=== PATIENT | male | born 1940 | race Caucasian/White ===

== ENCOUNTER 2017-08-07 08:41 | Inpatient (IN) | payer OTHER ==
[2017-07-07 13:05] VITALS: Ht 160 cm; Wt 86.0 kg
--- NOTE | 2017-07-07 13:38 | PAT Medication Instructions ---
Service Date Jul 07, 2017. Current Home Medication List Atorvastatin (Lipitor), 40 MG PO QPM Levothyroxine Sodium (Levothyroxine Sodium), 1 TAB PO QAM Metformin Hcl (Glucophage), 500 MG PO BID Medication Instructions For Your Scheduled Surgery - Hold the following medications the morning of surgery: Metformin Hcl (Glucophage), 500 MG PO BID - Take the following medications the morning of surgery with a sip of water: Levothyroxine Sodium (Levothyroxine Sodium), 1 TAB PO QAM - Take the following medications as scheduled the night before surgery: Metformin Hcl (Glucophage), 500 MG PO BID Atorvastatin (Lipitor), 40 MG PO QPM If you have any questions please call us at [phone] or [phone] or [phone]
--- NOTE | 2017-07-07 14:20 | DIAGNOSTIC IMAGING REPORT ---
CHEST 2 VIEWS ROUTINE CLINICAL HISTORY: PAT preoperative evaluation COMPARISON STUDY: No previous studies for comparison. FINDINGS: The bones soft tissues and hemidiaphragms are normal. The cardiomediastinal silhouette is normal. The lungs are clear. The pulmonary vasculature is normal. There is suggestion of sclerosis and mild deformity of the posterior medial aspect of the right fourth rib. This most likely secondary to old trauma and/or congenital deformity. IMPRESSION: No acute process. The above report was generated using voice recognition software. It may contain grammatical, syntax or spelling errors. Electronically signed by: Niraj Hart M.D. 07/07/2017 2:18 PM Dictated Date/Time: 07/07/2017 2:17 PM
[2017-07-07 15:53] LABS: BASO % 0.3 %; BASO ABS # 0.03 K/uL (0-0.2); EOS % 1.8 %; EOS ABS # 0.19 K/uL (0-0.5); HEMOGLOBIN 14.2 g/dL (14.0-18.0); IG# 0.05 K/uL (0.00-0.02); LYMPH % 17.6 %; LYMPH ABS # 1.88 K/uL (1.2-3.4); MEAN CELL VOLUME 92.5 fL (80-100); MEAN CORPUSCULAR HEMOGLOBIN 30.5 pg (25-34); MEAN PLATELET VOLUME 10.4 fL (7.4-10.4); MONO % 7.7 %; MONO ABS # 0.82 K/uL (0.11-0.59); NEUT % 72.1 %; PLATELET COUNT 371 K/uL (130-400); RED CELL DISTRIBUTION WIDTH CV 13.2 % (11.5-14.5); RED CELL DISTRIBUTION WIDTH SD 44.2 fL (36.4-46.3); WHITE BLOOD COUNT 10.67 K/uL (4.8-10.8)
[2017-07-07 16:02] LABS: INR 0.9 (0.9-1.1); PTT PATIENT 27.5 SECONDS (21.0-31.0)
[2017-07-07 16:18] LABS: CALCIUM 9.2 mg/dl (8.5-10.1); CREATININE 0.78 mg/dl (0.60-1.40); POTASSIUM 4.2 mmol/L (3.5-5.1)
--- NOTE | 2017-08-06 08:25 | HISTORY & PHYSICAL EXAMINATION ---
DATE OF ADMISSION: 08/07/2017 CHIEF COMPLAINT: Rotator cuff arthropathy of the right shoulder. HISTORY OF PRESENT ILLNESS: Mohsen is a pleasant 77-year-old male who has been having chronic increasing right shoulder pain and weakness. He does have a history of a rotator cuff repair in 2007. Over the past year, he has been noticing a decrease in range of motion and loss of strength in the shoulder. X-rays and clinical examination have been diagnostic for rotator cuff arthropathy of the right shoulder. After failing conservative treatment, he has elected to proceed with a reverse right shoulder arthroplasty. PAST MEDICAL HISTORY: Significant for hypothyroidism, hyperlipidemia, and borderline diabetes. PAST SURGICAL HISTORY: Significant for right shoulder rotator cuff repair in 2007 and appendectomy and ORIF of the right foot about 15 years ago. ALLERGIES: NAFCILLIN. MEDICATIONS: Include Synthroid, metformin, and Lipitor. FAMILY HISTORY: The patient denies. SOCIAL HISTORY: The patient is , lives in a house with his , and his is able to take care of him. He is planning to go home after discharge and will use [facility]. REVIEW OF SYSTEMS: He complains mostly of right shoulder pain and weakness. All other pertinent review of systems are negative. PHYSICAL EXAMINATION: GENERAL: He is awake, alert, and orient x3. He is in no apparent distress. He is very pleasant. HEENT: Pupils are equal, round, and reactive to light. Extraocular motions intact. Oral mucosa is pink and moist. HEART: The heart has regular rate per radial pulse. LUNGS: The lungs fawad symmetrically bilaterally with no audible breath sounds. ABDOMEN: The abdomen is soft, nontender, nondistended. MUSCULOSKELETAL: On physical examination of the right shoulder, he has decreased active range of motion with about 140 degrees of forward elevation. He has 4/5 motion with full can test and external rotation. Equivocal belly press test. He has a positive lag sign and a positive hornblower sign. He does have pain with range of motion. IMAGING DATA: X-rays of the right shoulder do show advancing osteoarthritis. There is some superior migration of the humeral head within the glenoid. IMPRESSION: Rotator cuff arthropathy of the right shoulder. PLAN: We will proceed with a reverse right shoulder arthroplasty. Postoperatively, he will be kept overnight in the hospital for postoperative medical management. He will then likely be discharged to home with [facility].
[2017-08-07] VITALS (8 sets, daily range): BP systolic 100–155; BP diastolic 49–72; PULSE 58–71; TEMP 36.4–36.7; O2SAT 90–96
[~2017-08-07] VITALS: Ht 160 cm; Wt 86.0 kg
[~2017-08-07 08:41] MED LIST: ACETAMINOPHEN 500 MG TAB PO SCH; ATOR-24 PO; CEFAZOLIN 2000MG IV PUSH 15 ML IV SCH; CLONIDINE HCL 100 MCG/ML SYRINGE ONE; FAMOTIDINE 20 MG TAB PO SCH; GABAPENTIN 300 MG CAP PO SCH; GLC/500 PO; LACTATED RINGER'S 1000ML 1,000 ML IV SCH; LACTATED RINGER'S 1000ML IV SCH; LEVO75TA5 PO; ROPIVACAINE 0.5% 5 MG/ML 30 ML VIAL ONE; ROPIVACAINE 5MG/ML 30 ML 150 MG, BUPIVACAINE 0.5% MPF INJ 30 ML, EpINEphrine HCL INJ 0.... INFIL SCH
[2017-08-07] MEDS ORDERED: FENTANYL CITRATE INJ 50 MCG/1 ML 2 ML VIAL ONE (08:58)
--- NOTE | 2017-08-07 08:58 | History & Physical Bridge Note ---
H&P Re-Evaluation Bridge Note: I have examined the patient, reviewed the History & Physical and in the interval since the performance of the History & Physical I have noted the following changes of clinical significance: No changes noted
[2017-08-07] MEDS ORDERED: ORTHO JOINT ANESTHETIC ONE (09:22)
[2017-08-07] MEDS ORDERED: BACITRACIN 50000 UNIT VIAL ONE (09:22)
[2017-08-07] MEDS ORDERED: MEPERIDINE HCL 25 MG/ML CARP IV PRN (09:30)
[2017-08-07] MEDS ORDERED: NALOXONE HCL 0.4 MG/1 ML VIAL/CARP IV PRN ×2 (09:30→12:15)
[2017-08-07] MEDS ORDERED: EpHEDrine SULFATE INJ 50 MG/ML AMP IV PRN (09:30)
[2017-08-07] MEDS ORDERED: LABETALOL HCL IV 5 MG/ML 20ML IV PRN (09:30)
[2017-08-07] MEDS ORDERED: ONDANSETRON INJ 2 MG/ML 2 ML VIAL IV PRN ×2 (09:30→12:15)
[2017-08-07] MEDS ORDERED: PHENYLEPHRINE 100MCG/ML 5ML SYR IV PRN (09:30)
[2017-08-07] MEDS ORDERED: ATROPINE SULFATE 0.1 MG/ML 5ML SYR IV PRN (09:30)
[2017-08-07] MEDS ORDERED: FLUMAZENIL 0.1 MG/1 ML 10 ML VIAL IV PRN (09:30)
[2017-08-07] MEDS ORDERED: HYDROmorphone INJ 2 MG/ML SYR/VIAL IV PRN (09:30)
[2017-08-07] MEDS ORDERED: FENTANYL CITRATE INJ 50 MCG/1 ML 2 ML VIAL IV PRN (09:30)
[2017-08-07] MEDS: TRANEXAMIC ACID INJ 1,000 MG x 2 Bags IV SCH ×4 (10:14→14:17)
[2017-08-07] MEDS ORDERED: ROCURONIUM BROMIDE 10 MG/ML 5 ML VIAL ONE (11:06)
[2017-08-07] MEDS ORDERED: ONDANSETRON INJ 2 MG/ML 2 ML VIAL ONE (11:06)
[2017-08-07] MEDS ORDERED: PROPOFOL IV EMULSION 10 MG/ML 20 ML VIAL ONE (11:06)
[2017-08-07] MEDS ORDERED: EpHEDrine SULFATE 50MG/5ML SYR ONE (11:06)
[2017-08-07] MEDS ORDERED: DEXAMETHASONE SOD INJ 4 MG/ML VIAL ONE (11:06)
--- NOTE | 2017-08-07 12:04 | [facility] Post Operative Brief Note ---
Immediate Operative Summary Operative Date August 07, 2017. Pre-Operative Diagnosis Rotator Cuff Arthropathy of Right Shoulder Post-Operative Diagnosis Rotator Cuff Arthropathy of Right Shoulder Procedure(s) Performed Right Reverse Total Shoulder Arthroplasty Surgeon Dr Lynch [employer] Director Surgeon(s) Jarrod Dugan PA-C Estimated Blood Loss 250ml Findings Consistent with Post-Op Diagnosis Specimens A: Right Humeral Head Anesthesia Type General Regional Complication(s) none Disposition Disposition: Recovery Room / PACU
[2017-08-07] MEDS ORDERED: OXYCODONE HCL IR 5 MG TAB (IMMEDIATE RELEASE) PO PRN (12:15)
[2017-08-07] MEDS ORDERED: MAGNESIUM HYDROXIDE SUSP 30 ML UDC PO PRN (12:15)
[2017-08-07] MEDS ORDERED: METOCLOPRAMIDE HCL INJ 5 MG/ML 2 ML VIAL IV PRN (12:15)
[2017-08-07] MEDS ORDERED: MoRPHine SULFATE 4 MG/ML 1 ML CARP\\VIAL IV PRN (12:15)
[2017-08-07] MEDS ORDERED: BISACODYL 10 MG SUPP PR PRN (12:15)
[2017-08-07] MEDS ORDERED: SOD PHOSPHATE/SOD BIPHOSPHATE ENEMA 132 ML BTL PR PRN (12:15)
--- NOTE | 2017-08-07 12:55 | DIAGNOSTIC IMAGING REPORT ---
R SHOULDER MIN 2 VIEWS ROUTINE HISTORY: 77 years-old Male Post shoulder surgery status post right shoulder arthroplasty placement. Degenerative joint disease. COMPARISON: Right shoulder radiographs 10/28/2016 TECHNIQUE: 2 views of the right shoulder FINDINGS: Postoperative changes from recent placement of a reverse right shoulder total joint arthroplasty device which appears to be in satisfactory alignment. No retained foreign body or periprosthetic fracture. Moderate to severe osteoarthritis about the right AC joint. Skin tonja are noted along with expected postsurgical soft tissue swelling and deep tissue air about the right shoulder. Right lung appears hypoinflated. Remote appearing fracture of the posterior right fourth rib. IMPRESSION: Satisfactory positioning of reverse right shoulder total joint arthroplasty. The above report was generated using voice recognition software. It may contain grammatical, syntax or spelling errors. Electronically signed by: Rohith Wren M.D. 08/07/2017 12:54 PM Dictated Date/Time: 08/07/2017 12:52 PM
--- NOTE | 2017-08-07 13:09 | Anesthesiology Progress Note ---
Anesthesia Post Op Note Date & Time August 07, 2017 at 13:09 Vital Signs Pain Intensity: 0 Vital Signs Past 12 Hours Date Time Temp Pulse Resp B/P (MAP) Pulse Ox O2 Delivery O2 Flow Rate FiO2 08/07/17 13:00 64 16 148/61 95 Oxymask 2 08/07/17 12:50 36.2 64 16 146/63 94 Oxymask 2 08/07/17 12:40 64 16 155/71 97 Oxymask 10 08/07/17 12:30 64 16 156/73 97 Oxymask 10 08/07/17 12:23 36 78 16 168/72 97 Oxymask 10 08/07/17 09:17 36.7 71 18 148/62 96 Room Air Notes Mental Status: alert / awake / arousable, participated in evaluation Pt Amnestic to Procedure: Yes Nausea / Vomiting: adequately controlled Pain: adequately controlled Airway Patency, RR, SpO2: stable & adequate BP & HR: stable & adequate Hydration State: stable & adequate Anesthetic Complications: no major complications apparent
[2017-08-07] MEDS ORDERED: GLYCOPYRROLATE INJ 0.2 MG/ML VIAL ONE (13:15)
[2017-08-07] MEDS ORDERED: NEOSTIGMINE METHYLSULFATE 5 MG/5 ML SYR ONE (13:15)
[2017-08-07] MEDS: KETOROLAC TROMETHAMINE 15 MG/ML VIAL IV. SCH ×2 (14:47→20:37)
[2017-08-07] MEDS: POTASSIUM CHLORIDE INJ 10 MEQ in SODIUM CHLORIDE 0.9% 1000ML 1,000 ML IV SCH (14:51)
[2017-08-07] MEDS ORDERED: ACETAMINOPHEN IV 1,000 MG in EMPTY BAG 0 ML IV SCH (15:00)
--- NOTE | 2017-08-07 15:19 | OPERATIVE REPORT ---
DATE OF OPERATION: 08/07/2017 PREOPERATIVE DIAGNOSIS: Rotator cuff arthropathy of the right shoulder. POSTOPERATIVE DIAGNOSIS: Rotator cuff arthropathy of the right shoulder. PROCEDURE: Right reverse total shoulder arthroplasty. SURGEON: Dr. Edgar Lynch TAPE STRINGER: Raghu Dugan PA-C, whose assistance was necessary for retraction and closure. ANESTHESIA: General with a right interscalene nerve block. COMPLICATIONS: None. CONDITION: Stable to PACU. INDICATIONS: Mohsen is a pleasant 77-year-old male who underwent an open right rotator cuff repair about 10 years ago. Unfortunately, he has been having increased pain and weakness of his right shoulder. X-rays and clinical examination were diagnostic for rotator cuff arthropathy of the right shoulder. After failing conservative treatment, he elected to undergo a reverse right shoulder arthroplasty. OPERATION AND FINDINGS: On 08/07/2017, he arrived at [facility] for the above procedure. He was seen in the preoperative holding and the operative extremity was identified and signed. He was given a preoperative antibiotic and a right interscalene nerve block. He was taken back to the operating room, laid on the table in supine position, and put under general anesthesia. He was then put into the beachchair position. The right shoulder was prepped and draped in sterile fashion. Time-out was done. The patient's operative extremity was properly identified. A deltopectoral approach was used. Dissection was taken down through the interval and the anterior shoulder was exposed. The long head of the biceps tendon was tenodesed to the upper border of the pectoralis major. The subscapularis was tenotomized off the lesser tuberosity with a centimeter of cuff tissue remaining. The proximal humerus was then exposed. A canal finding reamer was sent down the center of the humeral canal. Sequential reaming up to a size 15 reamer was done. Off that reamer, a proximal humeral resection guide was placed and the proximal humerus was resected about 25 degrees of retroversion and 135 degrees of inclination. The glenoid was then exposed. Time was spent doing a complete circumferential capsular and labral release. A guide was placed on the inferior aspect of the glenoid and a guide pin was placed in 10 degrees of inclination. A 25-mm mini baseplate was then reamed and the final baseplate was then impacted into place. A 25-mm central screw was placed followed by superior and inferior locking screws. A 36-mm eccentric glenosphere was then impacted into place. The proximal humerus was once again exposed. Sequential broaching up to a size 15 broach was done. A standard humeral tray was trialed, the shoulder was reduced, brought through a full range of motion, and felt to be stable. The shoulder was then dislocated. The broach was removed. The final size 15 mini Press-Fit implant was impacted into place. A standard humeral bearing was placed and a standard humeral tray and the ring lock mechanism was engaged. The humeral tray was then placed on the humeral stem. The shoulder was reduced, brought through a full range of motion, and felt to be stable. The surrounding soft tissues were injected with 100 mL of an orthopedic pain control cocktail. The wound was then irrigated with 3 L normal saline solution with bacitracin. The subscapularis was tenodesed back to the lesser tuberosity with transosseous FiberWire sutures and [id number] sutures. The axillary nerve was palpated. Skin was closed with 2-0 Vicryl, 3-0 V-Loc suture, and tonja. He was then placed in a soft dressing and a regular arm sling. He was then extubated, transferred to a [facility], and taken to the care in stable condition having tolerated the procedure well. IMPLANTS USED: I used a Biomet comprehensive reverse right shoulder arthroplasty with a 25-mm mini base plate, a single 25 mm central screw, two 35 mm peripheral locking screws, a 36-mm standard eccentric glenosphere, a 15-mm Press-Fit mini humeral stem and a standard humeral tray and bearing. I attest to the content of the Intraoperative Record and any orders documented therein. Any exception s are noted below.
[2017-08-07] MEDS ORDERED: RXC5 PO (16:46)
--- NOTE | 2017-08-07 16:47 | Discharge Instructions ---
Discharge Instructions Date of Service August 07, 2017. Admission Reason for Admission: Right Shoulder Chronic Rotator Cuff Tear/Pain Discharge Discharge Diagnosis / Problem: Right Reverse Total Shoulder Discharge Goals Goal(s): Decrease discomfort, Improve function Activity Recommendations Activity Limitations: as noted below . Instructions / Follow-Up Instructions / Follow-Up Activity and Therapy Recommendations: * Wear your sling for 3 weeks, unless otherwise instructed. You may remove your sling to shower and to dress, but otherwise, you should be in your sling at all times, including while sleeping * The shoulder replacement is very stable and you can use your hand while in the sling * Physical Therapy should start about 3-5 days from your day of surgery. Therapy will last about 8-12 weeks * You were shown a series of exercises in the hospital. Do these exercises daily including the exercises you were shown in physical therapy. Medications: * Narcotic You will likely be sent home from the hospital with a prescription for the narcotic pain medication that worked best throughout your stay. * Other medications may be prescribed for specific circumstances. If you have any questions, please call the office at . * Resume previous home medications unless otherwise instructed Dressing Care: If the incision is not draining then you may leave the tonja open to air. If there is a little bit of drainage or if the tonja are getting stuck on your clothing then cover the incision with a dry dressing. The tonja will be removed at your 2 week follow-up appointment. Showering: You may shower 5 days from the day of surgery. Let the soapy shower water run over the tonja and pat them dry. Do not scrub or soak the incision. Things To Watch For: * Drainage from the incision site that occurs more than one week after your surgery. * Increased redness at the incision site. * Fever above 102 degrees Fahrenheit. * Unusual chest pain or shortness of breath. * Call [facility] at with any of the above problems Follow-Up Visit: Follow-up with Dr. Lynch 2 weeks after your day of surgery. An appointment was probably scheduled when you signed-up for surgery in the office. If you have any questions call Office Instructions: More detailed instructions as well as Frequently Asked Questions were provided in a folder by our office when you signed-up for surgery. Please review these instructions when you get home. If you have any further questions or concerns, please feel free to call the office at [phone] Current Hospital Diet Patient's current hospital diet: Diabetes Type 2 Diet Discharge Diet Recommended Diet: Diabetes Type 2 Diet Procedures Procedures Performed: Right Reverse Total Shoulder Arthroplasty Pending Studies Studies pending at discharge: no Medical Emergencies . Who to Call and When: Medical Emergencies: If at any time you feel your situation is an emergency, please call 911 immediately. . Non-Emergent Contact Non-Emergency issues call your: Surgeon Call Non-Emergent contact if: wound has increased drainage, wound has increased redness . "Provider Documentation" section prepared by Edgar Lynch. .
--- NOTE | 2017-08-07 17:14 | PROGRESS NOTE ---
DATE: 08/07/2017 CHIEF COMPLAINT: Status post right reverse shoulder arthroplasty, postop day 0. SUBJECTIVE: Mohsen was seen and examined at bedside today. Overall, he is doing very well. He is sitting up with his arm in a sling. He has no pain and no complaints. OBJECTIVE: He is wearing a sling as instructed. The dressing is clean and dry. His radial, median, and ulnar nerves are checked and intact at his wrist. His axillary nerve is not checked yet. IMAGING: X-rays postoperatively of the right shoulder showed prosthesis to be in anatomical alignment without any evidence of fracture, dislocation, or loosening. IMPRESSION: Status post right reverse shoulder arthroplasty, postop day 0. PLAN: At this point, he is doing well. We will use oxycodone for pain control upon discharge. I plan to discharge him to home tomorrow morning with her arranged physical therapy.
[2017-08-07] MEDS: METFORMIN HCL 500 MG TAB PO SCH (17:45)
[2017-08-07] MEDS: ACETAMINOPHEN IV 1,000 MG in EMPTY BAG 0 ML IV SCH (17:46)
[2017-08-07] MEDS: CEFAZOLIN IV 2,000 MG in SYRINGE 0 ML IV SCH (17:52)
[2017-08-07] MEDS: DOCUSATE SODIUM 100 MG CAP PO SCH (20:37)
[2017-08-07] MEDS ORDERED: NURSING VERBAL MED ORDER ONE (20:45)
[2017-08-07] MEDS ORDERED: ATORVASTATIN 40 MG TAB PO SCH (21:00)
[2017-08-07] MEDS ORDERED: SENNA 8.6 MG TAB PO SCH (21:00)
[2017-08-08] MEDS: POTASSIUM CHLORIDE INJ 10 MEQ in SODIUM CHLORIDE 0.9% 1000ML 1,000 ML IV SCH (00:16)
[2017-08-08] MEDS: CEFAZOLIN IV 2,000 MG in SYRINGE 0 ML IV SCH (02:30)
[2017-08-08] MEDS: ACETAMINOPHEN IV 1,000 MG in EMPTY BAG 0 ML IV SCH ×2 (02:33→10:01)
[2017-08-08] MEDS: KETOROLAC TROMETHAMINE 15 MG/ML VIAL IV. SCH ×2 (02:34→08:28)
[2017-08-08 04:05] VITALS: BP 91/48; PULSE 58; TEMP 36.5; O2SAT 92
[2017-08-08] MEDS ORDERED: LEVOTHYROXINE 75 MCG TAB PO SCH (06:00)
--- NOTE | 2017-08-08 06:37 | PROGRESS NOTE ---
DATE: 08/08/2017 CHIEF COMPLAINT: Status post right reverse shoulder arthroplasty, postop day #1. PROGRESS: Mohsen was seen and examined at bedside today. Overall, he is doing very well. He says he has little to no pain in the right shoulder. He had no acute events overnight. He has no complaints. PHYSICAL EXAMINATION: RIGHT SHOULDER: The dressing is clean and dry. He is wearing a sling as instructed. His radial, median, and ulnar nerves were checked and intact at his wrist. His axillary nerve was not checked yet. Vital signs are all stable on room air. He is a little hypotensive and he is voiding on his own. LABORATORY DATA: This morning are all pending. IMPRESSION: Status post right reverse shoulder arthroplasty postop day #1. PLAN: At this point, he is doing well and happy with his progress. He will be seen by therapy today for hand, wrist, elbow and pendulum exercises. Will continue to use the oxycodone for pain control. He will be discharged to home later this morning.
[2017-08-08 06:40] LABS: HEMATOCRIT 33.8 % (42-52); HEMOGLOBIN 11.4 g/dL (14.0-18.0); MEAN CELL VOLUME 91.6 fL (80-100); MEAN CORPUSCULAR HEMOGLOBIN 30.9 pg (25-34); MEAN CORPUSCULAR HGB CONC 33.7 g/dl (32-36); PLATELET COUNT 277 K/uL (130-400); RED CELL DISTRIBUTION WIDTH CV 13.3 % (11.5-14.5); RED CELL DISTRIBUTION WIDTH SD 44.7 fL (36.4-46.3); WHITE BLOOD COUNT 18.19 K/uL (4.8-10.8)
[2017-08-08 07:16] VITALS: BP 101/51; PULSE 63; TEMP 36.6; O2SAT 94
[2017-08-08 07:21] LABS: CREATININE 0.88 mg/dl (0.60-1.40); POTASSIUM 4.3 mmol/L (3.5-5.1)
[2017-08-08] MEDS: DOCUSATE SODIUM 100 MG CAP PO SCH (08:26)
[2017-08-08] MEDS: METFORMIN HCL 500 MG TAB PO SCH (08:26)
[2017-08-08 09:37] VITALS: BP 101/51; PULSE 63; TEMP 36.6; O2SAT 94
[2017-08-08 11:18] VITALS: BP 101/51; PULSE 72; O2SAT 97
--- NOTE | 2017-08-08 12:33 | DISCHARGE SUMMARY ---
DISCHARGE DIAGNOSIS: Rotator cuff arthropathy of the right shoulder. PROCEDURE: Right reverse shoulder arthroplasty on 08/07/[address] Edgar Lynch. DISCHARGE INSTRUCTIONS: 1. Oxycodone 5-10 mg every 4 hours as needed for pain. 2. Lipitor 40 mg daily. 3. Synthroid 75 mcg daily. 4. Glucophage 500 mg twice a day. 5. Right arm sling for three weeks. 6. Follow up with Dr. Lynch in two weeks. 7. Call the office of Dr. Lynch with any questions or concerns. HOSPITAL COURSE: Mohsen is a pleasant 77-year-old male who presented to my office with complaints of chronic increasing right shoulder pain and weakness. He had a rotator cuff repair done about nine years ago. X-rays and clinical examination were diagnostic for rotator cuff arthropathy of the right shoulder. After failing conservative treatment, he elected to undergo a right reverse shoulder arthroplasty. On 08/07/2017, he arrived at [facility] for the above procedure. He underwent a right reverse shoulder arthroplasty without complication. He had a general anesthetic and a right interscalene nerve block. Postoperatively, he was placed in an arm sling and discharged to general orthopedic floor. His hospital course was uneventful. On postop day #1, his pain was well controlled and he was able to participate well with physical therapy, doing hand, wrist, elbow and pendulum exercises. His sling was adjusted. There was no drainage on his dressing and he was subsequently discharged to home with oxycodone, [facility] and the above instructions.
== END 2017-08-08 10:49 | disposition home or self-care (01) | DRG 483 ==
LOC: C.ACU 08:41 → C.3E 09:00 → ENRESERV 12:46
PROVIDERS: ADMIT Orthopaedic Surgery; ATTEND Orthopaedic Surgery
PROC: 0RRJ00Z Replacement of Right Shoulder Joint with Reverse Ball and Socket Synthetic Substitute, Open Approach (ICD-10-PCS; principal; 2017-08-07 11:10)
DX: M75.121 Complete rotator cuff tear or rupture of right shoulder, not specified as traumatic (principal); M19.011 Primary osteoarthritis, right shoulder; E03.9 Hypothyroidism, unspecified; E78.5 Hyperlipidemia, unspecified; R73.03 Prediabetes; E66.9 Obesity, unspecified; Z68.33 Body mass index [BMI] 33.0-33.9, adult; Z90.49 Acquired absence of other specified parts of digestive tract; Z98.890 Other specified postprocedural states; Z87.891 Personal history of nicotine dependence; Z79.84 Long term (current) use of oral hypoglycemic drugs; Z79.899 Other long term (current) drug therapy; Z88.0 Allergy status to penicillin

== ENCOUNTER 2024-09-19 14:20 | Inpatient (IN) ==
--- NOTE | 2024-09-19 15:28 | Emergency Department Note ---
Impression & Plan Nausea, vomiting, and diarrhea, HEAVEN (acute kidney injury), Acute dehydration, Generalized weakness ED Provider Note HISTORY OF PRESENT ILLNESS: Patient is an 84-year-old male presenting with abdominal pain, vomiting and diarrhea. Patient reportedly has been very weak and having difficulties getting around at home for the last week. He reportedly has not had much of an appetite secondary to persistent nausea and he has had multiple episodes of vomiting and diarrhea. Reports in the last week he has had more than 6 episodes of diarrhea a day. Describes it as watery and liquid stool. Denies any blood in his stool. He is not currently on any antibiotics. He takes daily oral chemotherapy for lung cancer. He denies any measured fevers at home. He had a PET scan 2 weeks ago that diagnosed diverticulitis, with the patient reports he was not started on any antibiotics. Patient denies any dysuria or hematuria. She does report he is had a bit of a runny nose the last few days, but denies any chest pain, shortness of breath or cough. ROS: as above PHYSICAL EXAM: Constitutional: Patient appears in no acute distress. HENT: Head: Normocephalic and atraumatic. Eyes: EOMI, PERRL Mouth/Throat: Mucous membranes moist. Neck: Trachea midline. Neck supple. Cardiovascular: RRR, No murmurs, rubs or gallops. Intact distal pulses. Pulmonary/Chest: No respiratory distress. Breath sounds clear and equal bilaterally. No wheezes or rales. Abdominal: Abdomen soft, no rebound or guarding. RLQ TTP Musculoskeletal: No edema, tenderness or deformity noted. Skin: Warm and dry. No rash, erythema, pallor or cyanosis Psychiatric: Appropriate mood and affect for situation. Neurological: Alert and keenly responsive. CN II-XII grossly intact, moving all extremities equally and fully. MDM: - Vitals signs showed hypotension - History obtained via patient. History as above. - Chronic conditions affecting care: aortic regurgitation; HLD; DM-2; lung cancer; hypothyroidism - Differential diagnoses include, but are not limited to: dehydration; electrolyte abnormality; viral syndrome; pneumonia; UTI; diverticulitis; bowel obstruction - Order placed for continuous cardiac monitoring. At this time, monitor showed rate of 55 bpm with normal sinus rhythm, per my interpretation. - External medical records reviewed. Radiation oncology visit note dated 05/24/2024 was reviewed. Patient is not currently undergoing radiation therapy. He was scheduled for a PET/CT scan to be performed on 05/25/2024. - EKG image interpreted by myself showed normal sinus rhythm. Rate bradycardia 54 bpm. QT 416. No acute ischemic changes. - Laboratory workup interpreted by myself showed normal WBC; anemia (Hgb 8.8); normal INR; elevated lactate; HEAVEN (Cr 1.94); normal troponin; normal procalcitonin - Blood cultures obtained - Viral respiratory panel negative - CXR image reviewed by myself is negative for pneumonia, per my interpretation. - Patient given 2L NS in ER. - CT abdomen/pelvis with IV contrast showed mass-like thickening with irregularity of the sigmoid colon concerning for colitis and/or diverticulitis versus malignancy. Patient is also noted to have peritoneal deposits throughout the abdomen concerning for metastases. He is also incidentally noted to have a fluid containing structure measuring 4 cm in the right groin without any significant inflammation noted. - Stool PCR ordered - Discussion was had with bilingual patient support caseworker about patient's case and need for admission - Hospitalist, Dr. Tolliver, consulted for admission - Patient admitted to [facility] for further evaluation and management. ASSESSMENT AND PLAN: Diagnosis: nausea, vomiting and diarrhea; HEAVEN; acute dehydration; generalized weakness Plan: admit Past Med/Surg History Problem List (Updated 09/19/24 @ 20:20 by Susan Hinson MD) Generalized weakness (Acute) Acute dehydration (Acute) HEAVEN (acute kidney injury) (Acute) Nausea, vomiting, and diarrhea (Acute) Hypothyroidism Malignant neoplasm of right upper lobe of lung (Chronic) Rotator cuff tear arthropathy of right shoulder Medical History (Updated 09/19/24 @ 20:20 by Susan Hinson MD) Moderate aortic regurgitation Chronic right shoulder pain Mixed hyperlipidemia Type 2 diabetes mellitus Statin intolerance Vitamin B 12 deficiency Surgical History (Updated 06/05/23 @ 14:28 by Azul Rodriguez, BRITTANEY) S/P thoracotomy Robotic right VATS (thoracoscopy) --staging lymphadenectomy Right thoracotomy -- exploration for tumor resectability 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 Status post right foot surgery Hx of appendectomy History of bronchoscopy Family History (Updated 06/04/23 @ 13:26 by Azul Rodriguez, BRITTANEY) Mother Cancer Lung cancer Father Cancer Lung cancer Social History (Updated 06/04/23 @ 13:29 by Azul Rodriguez RN) Smoking Status: Former smoker Tobacco Type: Cigarettes Age Started Using Tobacco: 17; Age Quit Using Tobacco: 52; packs per day: 2.5; Second Hand Exposure: Yes; Hx Alcohol Use: No Hx Substance Use: No Preferred Language: Honduran Visual Impairment: No Limitations Beliefs That Will Affect Care: None Current Living Situation: Spouse current occupational status: retired Feels Safe at Home: Yes Assistive Devices: Glasses and Hearing Aid - Bilateral Allergies Allergies Allergy/AdvReac Type Severity Reaction Status Date / Time nafcillin Allergy Intermediate hives Verified 09/19/24 18:13 Home Meds Home Medications Medication Instructions Recorded Confirmed losartan 100 mg tablet 100 mg PO DAILY 06/04/23 09/19/24 multivitamin with minerals-folic 1 tab PO DAILY 06/04/23 09/19/24 acid 200 mcg chewable tablet (Men's Multivitamin Gummies) ondansetron HCl 8 mg tablet 8 mg PO Q8H PRN NAUSEA/VOMITING 06/04/23 09/19/24 prochlorperazine maleate 10 mg 10 mg PO QID PRN NAUSEA/VOMITING 06/04/23 09/19/24 tablet (Compazine) guaifenesin 1,200 mg tablet, 1,200 mg PO DAILY PRN Congestion 11/25/23 09/19/24 extended release 12 hr (Mucinex) mecobalamin (vitamin B12) 1,000 5,000 mcg PO DAILY 11/25/23 09/19/24 mcg chewable tablet (B12 Active) ferrous sulfate 325 mg (65 mg 325 mg PO DAILY 09/19/24 09/19/24 iron) tablet (iron) levothyroxine 88 mcg tablet 88 mcg PO DAILYBB 09/19/24 09/19/24 metformin 1,000 mg tablet 1,000 mg PO BIDM 09/19/24 09/19/24 sotorasib 120 mg tablet (Lumakras) 480 mg PO QAM 09/19/24 09/19/24 Results & Data (ED) Vital Signs Vital Signs - 24 hr 09/19/24 14:29 09/19/24 14:40 09/19/24 16:14 Temperature 35.7 C L Temperature Source Temporal Artery Scan Pulse Rate 65 59 L Pulse Rate [Apical] 59 L Respiratory Rate 20 19 Respiratory Effort / Characteristics Non-Labored Respiratory Depth Normal Blood Pressure 96/50 L Blood Pressure [Right Arm] 140/62 Blood Pressure Mean 65 Blood Pressure Mean [Right Arm] 88 Blood Pressure Position [Right Arm] Semi-fowlers Pulse Oximetry 96 98 Oxygen Delivery Method Room Air Room Air Sepsis Recent Fever Within 48 Hours Yes Sepsis New/Unexplained Change in Mental Status No Sepsis Action Taken by Nursing No Action Required 09/19/24 16:14 09/19/24 16:14 09/19/24 18:00 Temperature Temperature Source Pulse Rate Pulse Rate [Apical] 74 Respiratory Rate 17 Respiratory Effort / Characteristics Respiratory Depth Normal Blood Pressure Blood Pressure [Right Arm] 124/81 Blood Pressure Mean Blood Pressure Mean [Right Arm] 95 Blood Pressure Position [Right Arm] Pulse Oximetry 97 Oxygen Delivery Method Room Air Room Air Room Air Sepsis Recent Fever Within 48 Hours Sepsis New/Unexplained Change in Mental Status Sepsis Action Taken by Nursing 09/19/24 18:31 Temperature Temperature Source Pulse Rate 58 L Pulse Rate [Apical] Respiratory Rate Respiratory Effort / Characteristics Respiratory Depth Blood Pressure Blood Pressure [Right Arm] Blood Pressure Mean Blood Pressure Mean [Right Arm] Blood Pressure Position [Right Arm] Pulse Oximetry Oxygen Delivery Method Sepsis Recent Fever Within 48 Hours Sepsis New/Unexplained Change in Mental Status Sepsis Action Taken by Nursing Laboratory Data 09/19/24 15:20 09/19/24 15:20 Lab Results 09/19/24 09/19/24 09/19/24 Range/Units 15:01 15:20 16:09 WBC 7.50 (4.8-10.8) K/ul RBC 3.11 L (4.70-6.10) M/uL Hgb 8.8 L (14.0-18.0) g/dl Hct 28.2 L (42.0-52.0) % MCV 90.7 (80.0-100.0) fL MCH 28.3 (25.0-34.0) pg MCHC 31.2 L (32.0-36.0) g/dL RDW Std Deviation 45.1 (36.4-46.3) fL RDW Coeff of Tye 13.8 (11.5-14.5) % Plt Count 367 (130-400) K/uL MPV 9.8 (9.4-12.4) fL Immature Gran % (Auto) 0.5 % Neut % (Auto) 83.9 % Lymph % (Auto) 6.3 % [place] % (Auto) 8.5 % Eos % (Auto) 0.3 % Baso % (Auto) 0.5 % Neut # (Auto) 6.29 (1.40-6.50) K/uL Lymph # (Auto) 0.47 L (1.20-3.40) K/uL [place] # (Auto) 0.64 H (0.11-0.59) K/uL Eos # (Auto) 0.02 (0.00-0.50) K/uL Baso # (Auto) 0.04 (0.00-0.20) K/uL Immature Gran # (Auto) 0.04 (0.01-0.20) K/uL PT 10.8 (9.0-12.0) Seconds INR 1.0 (0.9-1.1) APTT 34 H (21-31) Seconds PTT Ratio 1.3 Sodium 137 (136-145) mmol/L Potassium 4.6 (3.5-5.1) mmol/L Chloride 106 (98-107) mmol/L Carbon Dioxide 22 (21-32) mmol/L Anion Gap 9 (3-11) BUN 52 H (6-23) mg/dl Creatinine 1.94 H (0.6-1.4) mg/dl Est Cr Clr Drug Dosing 23.6 ml/min eGFR 33.93 BUN/Creatinine Ratio 26.8 H (10-20) Glucose 121 H (70-99(Fasting)) mg/dl Lactate 0.7 (0.4-2.0) mmol/L Calcium 9.4 (8.6-10.3) mg/dl Magnesium 1.8 (1.7-2.4) mg/dl Total Bilirubin 0.4 (0.2-1.0) mg/dl AST 18 (13-39) U/L ALT 24 (7-52) U/L Alkaline Phosphatase 197 H (34-104) U/L Troponin I High Sens 3.6 (0-20) pg/ml Total Protein 7.3 (6.0-8.3) gm/dl Albumin 3.6 (3.4-5.0) gm/dl Globulin 3.7 (2.5-4.0) gm/dl Albumin/Globulin Ratio 1.0 (0.9-2) Procalcitonin 0.26 (0-0.5) ng/ml Urine Comment Adenovirus (PCR) Not Detected (NotDetected) B. pertussis DNA (PCR) Not Detected (NotDetected) B.parapertussis DNA PCR Not Detected (NotDetected) C. pneumoniae DNA (PCR) Not Detected (NotDetected) Coronavirus OC43 (PCR) Not Detected (NotDetected) Coronavirus HKU1 (PCR) Not Detected (NotDetected) Coronavirus 229E (PCR) Not Detected (NotDetected) SARS-CoV-2 (PCR) Not Detected (NotDetected) Coronavirus NL63 (PCR) Not Detected (NotDetected) Human Metapneumovir PCR Not Detected (NotDetected) Influenza Type A (PCR) Not Detected (NotDetected) Influenza Type B (PCR) Not Detected (NotDetected) M. pneumoniae (PCR) Not Detected (NotDetected) Parainfluenza 1 (PCR) Not Detected (NotDetected) Parainfluenza 2 (PCR) Not Detected (NotDetected) Parainfluenza 3 (PCR) Not Detected (NotDetected) Parainfluenza 4 (PCR) Not Detected (NotDetected) RSV (PCR) Not Detected (NotDetected) Entero/Rhino (PCR) Not Detected (NotDetected) 06/30/25 Range/Units 20:08 WBC (4.8-10.8) K/ul RBC (4.70-6.10) M/uL Hgb (14.0-18.0) g/dl Hct (42.0-52.0) % MCV (80.0-100.0) fL MCH (25.0-34.0) pg MCHC (32.0-36.0) g/dL RDW Std Deviation (36.4-46.3) fL RDW Coeff of Tye (11.5-14.5) % Plt Count (130-400) K/uL MPV (9.4-12.4) fL Immature Gran % (Auto) % Neut % (Auto) % Lymph % (Auto) % [place] % (Auto) % Eos % (Auto) % Baso % (Auto) % Neut # (Auto) (1.40-6.50) K/uL Lymph # (Auto) (1.20-3.40) K/uL [place] # (Auto) (0.11-0.59) K/uL Eos # (Auto) (0.00-0.50) K/uL Baso # (Auto) (0.00-0.20) K/uL Immature Gran # (Auto) (0.01-0.20) K/uL PT (9.0-12.0) Seconds INR (0.9-1.1) APTT (21-31) Seconds PTT Ratio Sodium (136-145) mmol/L Potassium (3.5-5.1) mmol/L Chloride (98-107) mmol/L Carbon Dioxide (21-32) mmol/L Anion Gap (3-11) BUN (6-23) mg/dl Creatinine (0.6-1.4) mg/dl Est Cr Clr Drug Dosing ml/min eGFR BUN/Creatinine Ratio (10-20) Glucose (70-99(Fasting)) mg/dl Lactate (0.4-2.0) mmol/L Calcium (8.6-10.3) mg/dl Magnesium (1.7-2.4) mg/dl Total Bilirubin (0.2-1.0) mg/dl AST (13-39) U/L ALT (7-52) U/L Alkaline Phosphatase (34-104) U/L Troponin I High Sens (0-20) pg/ml Total Protein (6.0-8.3) gm/dl Albumin (3.4-5.0) gm/dl Globulin (2.5-4.0) gm/dl Albumin/Globulin Ratio (0.9-2) Procalcitonin (0-0.5) ng/ml Urine Comment Adenovirus (PCR) (NotDetected) B. pertussis DNA (PCR) (NotDetected) B.parapertussis DNA PCR (NotDetected) C. pneumoniae DNA (PCR) (NotDetected) Coronavirus OC43 (PCR) (NotDetected) Coronavirus HKU1 (PCR) (NotDetected) Coronavirus 229E (PCR) (NotDetected) SARS-CoV-2 (PCR) (NotDetected) Coronavirus NL63 (PCR) (NotDetected) Human Metapneumovir PCR (NotDetected) Influenza Type A (PCR) (NotDetected) Influenza Type B (PCR) (NotDetected) M. pneumoniae (PCR) (NotDetected) Parainfluenza 1 (PCR) (NotDetected) Parainfluenza 2 (PCR) (NotDetected) Parainfluenza 3 (PCR) (NotDetected) Parainfluenza 4 (PCR) (NotDetected) RSV (PCR) (NotDetected) Entero/Rhino (PCR) (NotDetected) Administered Medications Discontinued Medications Sodium Chloride (Nss) 2,000 mls @ 999 mls/hr IV .Q2H1M ONE Stop: 09/19/24 16:38 Last Infusion: 09/19/24 18:10 Dose: Infused Documented By: Admin: 09/19/24 16:09 Dose: 999 mls/hr Documented By: ISABEL Ioversol (Optiray 320 100ml) 90 ml IV ONCE ONE Stop: 09/19/24 18:07 Last Admin: 09/19/24 18:07 Dose: 90 ml Documented By: VAIBHAV Imaging Data Radiologist's Impression: Chest X-Ray 09/19/24 14:38 XR chest 1V portable CLINICAL HISTORY: Sepsis COMPARISON STUDY: 06/10/2023 CT FINDINGS: Right chest port tip is near the cavoatrial junction. Heart size and pulmonary vasculature are normal. There is prominence of the right hilum, grossly stable. There are stable stranding opacities at the right lung. Stable mild opacity at the right base with blunting of the right costophrenic angle. Left lung remains well aerated. No pneumothorax. IMPRESSION: Stable findings at the right lung. These likely correlate with the right hilar mass and very small right pleural effusion and scarring/atelectasis seen on the prior chest CTA. No definite adverse change seen. ACT 112: Negative or not required by law. Electronically signed by: Trevin Brady M.D. 09/19/2024 3:57 PM Abdomen/Pelvis CT 09/19/24 14:58 CT ABDOMEN and PELVIS with INTRAVENOUS CONTRAST HISTORY: Abdominal pain TECHNIQUE: CT abdomen and pelvis with contrast. IV CONTRAST: 100 mL of OMNIPAQUE 300 ENTERIC CONTRAST: Not Given COMPARISON: CT abdomen pelvis May 29, 2023. FINDINGS: LOWER CHEST: Chronic right lower rib cage deformities. Scarring in the right lung. Cardiomegaly. Coronary and valvular calcifications. Small pericardial fluid. LIVER: Subcentimeter hypodensities that are too small to characterize. GALLBLADDER/BILIARY: Unremarkable gallbladder. No abnormal biliary dilatation. SPLEEN: No focal lesion identified. PANCREAS: Small cystic structure seemingly arising from the pancreas measuring up to 1.0 cm may represent IPMN's. ADRENALS: Unremarkable. KIDNEYS: Cortical and parapelvic cysts. No stones or hydronephrosis identified. PERITONEUM/RETROPERITONEUM. There are multiple new peritoneal soft tissue deposits noted. For example in the right anterior peritoneum and there is a oblong shaped enhancing structure measuring 1.5 cm (series 3, image 159). As an additional example, in the left upper quadrant in the gastrosplenic interval, there are multiple enhancing lesions measuring up to 1.5 cm (series 3 image 48). No aortic aneurysm. Enlarged lymph nodes are seen in portacaval region. GASTROINTESTINAL: No obstruction. There are diffuse inflammatory changes to the hollow viscus with gastric wall thickening and multiple loops of small bowel demonstrating wall thickening. There is diffuse wall thickening involving the colon with a masslike irregularity and wall thickening involving the sigmoid colon. There are large diverticulula arising from the sigmoid colon projecting posteriorly redemonstrated. There are new heterogeneously enhancing masslike structures seemingly abutting the colon: There is a 3.5 cm centrally hypodense lobulated mass abutting the left hemicolon (series 3, image 100). Additional similar mass abutting the sigmoid colon measuring 2.5 cm (image 238). REPRODUCTIVE: Prostamegaly URINARY BLADDER: Unremarkable ABDOMINAL WALL: Fluid containing structure measuring 4.0 cm is present in the right groin. BONES: No acute findings. IMPRESSION: Masslike wall thickening with irregularity in the sigmoid colon is identified. This could represent colitis and/or diverticulitis however malignancy is a consideration. Multiple heterogeneously enhancing masses with central hypodensity are noted abutting the large bowel as discussed. This could represent malignancies of the colon or peritoneal deposits of tumor. Additional peritoneal deposits are present scattered throughout the abdomen. Overall the findings are consistent with a neoplastic/malignant process and colon cancer with peritoneal carcinomatosis may be a consideration. Metastatic disease is also possible. Recommend clinical correlation with medical history and medical workup up to this point. If necessary, tissue sampling may be considered for histology. Inflammatory changes of the stomach and small bowel loops may additionally suggest gastroenteritis Fluid containing structure measuring 4.0 cm in the right groin. No significant inflammation is present at this site. Electronically signed by Júnior Gordon 09-19-2024 7:37 PM Discharge Plan Visit Data Chief Complaint: Illness Stated Complaint: CANCER,SEVERE DIARRHEA,VOMITING,DIVERTICULITIS ED Provider: Susan Hinson Discharge Problem: Nausea, vomiting, and diarrhea, HEAVEN (acute kidney injury), Acute dehydration, Generalized weakness Condition: Fair Forms Stand Alone Forms: [facility] [place] [employer] Prescriptions Prescriptions: No Action losartan 100 mg tablet 100 mg PO DAILY multivit with min-folic acid [Men's Multivitamin Gummies] 200 mcg tablet,chewable 1 tab PO DAILY prochlorperazine maleate [Compazine] 10 mg tablet 10 mg PO QID PRN (Reason: NAUSEA/VOMITING) ondansetron HCl 8 mg tablet 8 mg PO Q8H PRN (Reason: NAUSEA/VOMITING) mecobalamin (vitamin B12) [B12 Active] 1,000 mcg tablet,chewable 5,000 mcg PO DAILY guaifenesin [Mucinex] 1,200 mg tablet extended release 12hr 1,200 mg PO DAILY PRN (Reason: Congestion) levothyroxine 88 mcg tablet 88 mcg PO DAILYBB ferrous sulfate [iron] 325 mg (65 mg iron) Tablet 325 mg PO DAILY metformin 1,000 mg tablet 1,000 mg PO BIDM Lumakras 120 mg tablet 480 mg PO QAM Rx Instructions: TAKES 4 TABS. Referrals Referrals: Naif Chen MD [Primary Care Provider] -
[2024-09-19 15:39] LABS: Hematocrit (blood only) 28.2 % (42.0-52.0); Hemoglobin 8.8 g/dl (14.0-18.0); Immature Granulocytes # (auto) 0.04 K/uL (0.01-0.20); Immature Granulocytes % (auto) 0.5 %; Mean Corpuscular Hemoglobin 28.3 pg (25.0-34.0); Mean Corpuscular Volume 90.7 fL (80.0-100.0); Platelet Count 367 K/uL (130-400); RDW Standard Deviation 45.1 fL (36.4-46.3); Red Blood Count 3.11 M/uL (4.70-6.10); White Blood Count 7.50 K/ul (4.8-10.8)
[2024-09-19 15:53] LABS: Alanine Aminotransferase 24.0 U/L (7-52); Albumin Globulin Ratio 1.0 (0.9-2); Alkaline Phosphatase 197.0 U/L (34-104); Anion Gap 9.0 (3-11); Bilirubin,Total 0.4 mg/dl (0.2-1.0); Blood Urea Nitrogen 52.0 mg/dl (6-23); Calcium 9.4 mg/dl (8.6-10.3); Carbon Dioxide 22.0 mmol/L (21-32); Chloride 106.0 mmol/L (98-107); Creatinine Clr Calc Pharmacy 23.6 ml/min; Globulin 3.7 gm/dl (2.5-4.0); Glucose 121.0 mg/dl (70-99(Fasting)); Magnesium 1.8 mg/dl (1.7-2.4); Potassium 4.6 mmol/L (3.5-5.1); Sodium 137.0 mmol/L (136-145); Total Protein 7.3 gm/dl (6.0-8.3)
--- NOTE | 2024-09-19 15:58 | XRay Report ---
XR chest 1V portable CLINICAL HISTORY: Sepsis COMPARISON STUDY: 06/10/2023 CT FINDINGS: Right chest port tip is near the cavoatrial junction. Heart size and pulmonary vasculature are normal. There is prominence of the right hilum, grossly stable. There are stable stranding opacit ies at the right lung. Stable mild opacity at the right base with blunting of the right costophrenic angle. Left lung remains well aerated. No pneumothorax. IMPRESSION: Stable findings at the right lung. These likely correlate with the right hilar mass and very small right pleural effusion and scarring/atelectasis seen on the prior chest CTA. No definite a dverse change seen. ACT 112: Negative or not required by law. Electronically signed by: Trevin Brady M.D. 09/19/2024 3:57 PM
[2024-09-19] MEDS: SODIUM CHLORIDE 0.9% 2,000 ML IV ONE (16:09)
[2024-09-19 16:10] LABS: INR 1.0 (0.9-1.1); Partial Thromboplastin Time 34 Seconds (21-31); Prothrombin Time 10.8 Seconds (9.0-12.0)
[2024-09-19 16:56] LABS: Chlamydia pneumoniae PCR Not Detected (NotDetected); Coronavirus 229E PCR Not Detected (NotDetected); Coronavirus CoV-2 (COVID19)PCR Not Detected (NotDetected); Coronavirus HKU1 PCR Not Detected (NotDetected); Coronavirus NL63 PCR Not Detected (NotDetected); Coronavirus OC43PCR Not Detected (NotDetected); Human Metapneumovirus PCR Not Detected (NotDetected); Parainfluenza Virus 1 PCR Not Detected (NotDetected); Parainfluenza Virus 2 PCR Not Detected (NotDetected); Parainfluenza Virus 3 PCR Not Detected (NotDetected); Parainfluenza Virus 4 PCR Not Detected (NotDetected); Respiratory Syncytial VirusPCR Not Detected (NotDetected); Rhinovirus/Enterovirus PCR Not Detected (NotDetected)
[2024-09-19] MEDS: OPTIRAY 320 100ml IV ONE (18:07)
--- NOTE | 2024-09-19 19:41 | CT Scan Report ---
CT ABDOMEN and PELVIS with INTRAVENOUS CONTRAST HISTORY: Abdominal pain TECHNIQUE: CT abdomen and pelvis with contrast. IV CONTRAST: 100 mL of OMNIPAQUE 300 ENTERIC CONTRAST: Not Given COMPARISON: CT abdomen pelvis May 29, 2023. FINDINGS: LOWER CHEST: Chronic right lower rib cage deformities. Scarring in the right lung. Cardiomegaly. Coronary and valvular calcifications. Small pericardial fluid. LIVER: Subcentimeter hypodensities that are too small to characterize. GALLBLADDER/BILIARY: Unremarkable gallbladder. No abnormal biliary dilatation. SPLEEN: No focal lesion identified. PANCREAS: Small cystic structure seemingly arising from the pancreas measuring up to 1.0 cm may represent IPMN's. ADRENALS: Unremarkable. KIDNEYS: Cortical and parapelvic cysts. No stones or hydronephrosis identified. PERITONEUM/RETROPERITONEUM. There are multiple new peritoneal soft tissue deposits noted. For example in the right anterior peritoneum and there is a oblong shaped enhancing structure measuring 1.5 cm (series 3, image 159). As an additional example, in the left upper quadrant in the gastrosplenic interval, there are multiple enhancing lesions measuring up to 1.5 cm (series 3 image 48). No aortic aneurysm. Enlarged lymph nodes are seen in portacaval region. GASTROINTESTINAL: No obstruction. There are diffuse inflammatory changes to the hollow viscus with gastric wall thickening and multiple loops of small bowel demonstrating wall thickening. There is diffuse wall thickening involving the colon with a masslike irregularity and wall thickening involving the sigmoid colon. There are large diverticulula arising from the sigmoid colon projecting posteriorly redemonstrated. There are new heterogeneously enhancing masslike structures seemingly abutting the colon: There is a 3.5 cm centrally hypodense lobulated mass abutting the left hemicolon (series 3, image 100). Additional similar mass abutting the sigmoid colon measuring 2.5 cm (image 238). REPRODUCTIVE: Prostamegaly URINARY BLADDER: Unremarkable ABDOMINAL WALL: Fluid containing structure measuring 4.0 cm is present in the right groin. BONES: No acute findings. IMPRESSION: Masslike wall thickening with irregularity in the sigmoid colon is identified. This could represent colitis and/or diverticulitis however malignancy is a consideration. Multiple heterogeneously enhancing masses with central hypodensity are noted abutting the large bowel as discussed. This could represent malignancies of the colon or peritoneal deposits of tumor. Additional peritoneal deposits are present scattered throughout the abdomen. Overall the findings are consistent with a neoplastic/malignant process and colon cancer with peritoneal carcinomatosis may be a consideration. Metastatic disease is also possible. Recommend clinical correlation with medical history and medical workup up to this point. If necessary, tissue sampling may be considered for histology. Inflammatory changes of the stomach and small bowel loops may additionally suggest gastroenteritis Fluid containing structure measuring 4.0 cm in the right groin. No significant inflammation is present at this site. Electronically signed by Júnior Gordon 09-19-2024 7:37 PM
[2024-09-19 20:21] LABS: Appearance Urine Clear (Clear); Glucose Urine UA Negative (Negative)
--- NOTE | 2024-09-19 21:59 | History & Physical Report ---
Date of Service September 19, 2024 Assessment & Plan (1) Nausea, vomiting, and diarrhea: Plan: 84-year-old male with past med history significant for type 2 diabetes, hypothyroidism, hyperlipidemia, adenocarcinoma of right lung, moderate aortic regurgitation, hypertension, vitamin B12 deficiency, statin intolerance presents with nausea vomiting and diarrhea. Patient having ongoing diarrhea since last 1 week to 10 days 5-6 times daily. Diarrhea is watery. No blood in the stools. Today he was having nausea and dry heaves and had episode of vomiting. Earlier had abdominal pain that got resolved now. Denies any fevers. No chest pain or shortness of breath. Has cough and brings up white phlegm. Denies any headache. Vision is okay. No runny nose. Appetite is poor. Sometimes have some difficulty to swallowing. On regular food. Ambulates without support but walking slowly. Hemodynamics are okay. Patient had PET scan on 09/12/2024 and has appointment with heme-onc coming Thursday. Nausea vomiting and diarrhea Diarrhea going for last 7 to 10 days Will follow stool studies and stool for C. difficile CAT scan showing diverticulitis N.p.o. for now IV fluids Diverticulitis N.p.o. IV fluids Empiric Zosyn Surgery consult HEAVEN Baseline creatinine around 1.1-1.2 Presented creatinine 1.9 Holding losartan Will avoid nephrotoxic agents Possibly from the above Getting fluids Will follow repeat labs Metastatic adenocarcinoma of right lung Was on immunotherapy started on 08/20/2023 Disease progression noted on PET scan on 05/25/2024 Currently is on sotorasib, started since last week of May 2024 Patient had a PET scan on September 12 2024 which showing "increase in size and metabolic activity of perihilar right upper lobe radiation fibrosis/contagious hilar lymphadenopathy. Decrease in size of multiple active peritoneal implants. Acute sigmoid diverticulitis with contained perforation. Small pericardial effusion". Has appointment with heme-onc coming Thursday as per . CAT scan today showing" possible colitis/diverticulitis possible malignancy. Peritoneal carcinomatosis. Possible gastroenteritis. Fluid containing structure 4 cm in the right groin". Will hold sotorasib for now and discuss with heme-onc in a.m. Diabetes Hold metformin Sliding scale follow [id number] We will monitor Hypertension Holding losartan for now IV hydralazine as needed Hypothyroidism On Synthyroid Moderate aortic regurgitation Monitor for volume overload Anemia Hemoglobin 8.8 Possibly from chemo On iron supplement Will follow labs DVT prophylaxis Heparin subcu Disposition Med/telemetry Full code per my discussion with . History of Present Illness Chief Complaint: Nausea vomiting and diarrhea Primary Care Provider: Naif Chen MD 84-year-old male with past med history significant for type 2 diabetes, hypothyroidism, hyperlipidemia, adenocarcinoma of right lung, moderate aortic regurgitation, hypertension, vitamin B12 deficiency, statin intolerance presents with nausea vomiting and diarrhea. Patient having ongoing diarrhea since last 1 week to 10 days 5-6 times daily. Diarrhea is watery. No blood in the stools. Today he was having nausea and dry heaves and had episode of vomiting. Earlier had abdominal pain that got resolved now. Denies any fevers. No chest pain or shortness of breath. Has cough and brings up white phlegm. Denies any headache. Vision is okay. No runny nose. Appetite is poor. Sometimes have some difficulty to swallowing. On regular food. Ambulates without support but walking slowly. Hemodynamics are okay. Patient had PET scan on 09/12/2024 and has appointment with heme-onc coming Thursday. Past medical history. As mentioned above Past surgical history. Bronchoscopy. Colonoscopy. Right robotic thoracoscopy with lymphadenectomy. Appendectomy. Right shoulder replacement. Thoracotomy major with exploration. Social history. . Quit smoking 1991. Smoked 3 pack a day for 34 years. Alcohol very rarely now. No drug use. Family history. No significant family history on file. Allergies Allergy/AdvReac Type Severity Reaction Status Date / Time nafcillin Allergy Intermediate hives Verified 09/19/24 18:13 Home Medications Medication Instructions Recorded Confirmed Type losartan 100 mg tablet 100 mg PO DAILY 06/04/23 09/19/24 History multivitamin with minerals-folic 1 tab PO DAILY 06/04/23 09/19/24 History acid 200 mcg chewable tablet (Men's Multivitamin Gummies) ondansetron HCl 8 mg tablet 8 mg PO Q8H PRN NAUSEA/VOMITING 06/04/23 09/19/24 History prochlorperazine maleate 10 mg 10 mg PO QID PRN NAUSEA/VOMITING 06/04/23 09/19/24 History tablet (Compazine) guaifenesin 1,200 mg tablet, 1,200 mg PO DAILY PRN Congestion 11/25/23 09/19/24 History extended release 12 hr (Mucinex) mecobalamin (vitamin B12) 1,000 5,000 mcg PO DAILY 11/25/23 09/19/24 History mcg chewable tablet (B12 Active) ferrous sulfate 325 mg (65 mg 325 mg PO DAILY 09/19/24 09/19/24 History iron) tablet (iron) levothyroxine 88 mcg tablet 88 mcg PO DAILYBB 09/19/24 09/19/24 History metformin 1,000 mg tablet 1,000 mg PO BIDM 09/19/24 09/19/24 History sotorasib 120 mg tablet (Lumakras) 480 mg PO QAM 09/19/24 09/19/24 History Past Med/Surg History Problem List (Updated 09/19/24 @ 23:09 by Kenrick Arteaga PA-C) Diverticulitis Generalized weakness (Acute) Acute dehydration (Acute) HEAVEN (acute kidney injury) (Acute) Nausea, vomiting, and diarrhea (Acute) Hypothyroidism Malignant neoplasm of right upper lobe of lung (Chronic) Rotator cuff tear arthropathy of right shoulder Medical History Moderate aortic regurgitation Chronic right shoulder pain Mixed hyperlipidemia Type 2 diabetes mellitus Statin intolerance Vitamin B 12 deficiency Surgical History S/P thoracotomy Robotic right VATS (thoracoscopy) --staging lymphadenectomy Right thoracotomy -- exploration for tumor resectability 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 Status post right foot surgery Hx of appendectomy History of bronchoscopy Family History Mother Cancer Lung cancer Father Cancer Lung cancer Social History Smoking Status: Former smoker Tobacco Type: Cigarettes Age Started Using Tobacco: 17; Age Quit Using Tobacco: 52; packs per day: 2.5; Second Hand Exposure: Yes; Hx Alcohol Use: No Hx Substance Use: No Preferred Language: [place]er Visual Impairment: No Limitations Beliefs That Will Affect Care: None Current Living Situation: Spouse current occupational status: retired Other Information That Helps Us Care for You: No Feels Safe at Home: Yes Safety Concerns: Feels Safe At This Time Assistive Devices: Glasses and Hearing Aid - Bilateral Review of Systems Review of Systems: All systems reviewed & are unremarkable except as noted in HPI & below Physical Exam Physical Exam: General- Not in distress Head- atraumatic Eyes- PERRL. ENT- oropharynx clear Neck- supple, no JVD. Lungs- clear to auscultation no wheezing or crackles Heart- regular rhythm; murmur in aortic area, no gallop. Abdomen- normal bowel sounds, soft, nontender, no distension Extremities- no pretibial edema, no erythema seen Neuro- alert, oriented PERRL, no facial palsy; no dysarthria; moves extremities Results & Data Results & Data Vital Signs (Past 12 Hours) Vital Signs Temp Pulse Pulse Resp BP BP Pulse Ox 09/19/24 18:31 58 L 09/19/24 18:00 74 17 124/81 97 09/19/24 16:14 09/19/24 16:14 09/19/24 16:14 59 L 19 140/62 98 09/19/24 14:40 59 L 09/19/24 14:29 35.7 C L 65 20 96/50 L 96 O2 Del Method 09/19/24 18:31 09/19/24 18:00 Room Air 09/19/24 16:14 Room Air 09/19/24 16:14 Room Air 09/19/24 16:14 Room Air 09/19/24 14:40 09/19/24 14:29 Room Air Diagnostic Findings Laboratory Results WBC 7.50 K/ul (4.8-10.8) 09/19/24 15:20 RBC 3.11 M/uL (4.70-6.10) L 09/19/24 15:20 Hgb 8.8 g/dl (14.0-18.0) L 09/19/24 15:20 Hct 28.2 % (42.0-52.0) L 09/19/24 15:20 MCV 90.7 fL (80.0-100.0) 09/19/24 15:20 MCH 28.3 pg (25.0-34.0) 09/19/24 15:20 MCHC 31.2 g/dL (32.0-36.0) L 09/19/24 15:20 RDW Std Deviation 45.1 fL (36.4-46.3) 09/19/24 15:20 RDW Coeff of Tye 13.8 % (11.5-14.5) 09/19/24 15:20 Plt Count 367 K/uL (130-400) 09/19/24 15:20 MPV 9.8 fL (9.4-12.4) 09/19/24 15:20 Immature Gran % (Auto) 0.5 % 09/19/24 15:20 Neut % (Auto) 83.9 % 09/19/24 15:20 Lymph % (Auto) 6.3 % 09/19/24 15:20 Josephine % (Auto) 8.5 % 09/19/24 15:20 Eos % (Auto) 0.3 % 09/19/24 15:20 Baso % (Auto) 0.5 % 09/19/24 15:20 Neut # (Auto) 6.29 K/uL (1.40-6.50) 09/19/24 15:20 Lymph # (Auto) 0.47 K/uL (1.20-3.40) L 09/19/24 15:20 Josephine # (Auto) 0.64 K/uL (0.11-0.59) H 09/19/24 15:20 Eos # (Auto) 0.02 K/uL (0.00-0.50) 09/19/24 15:20 Baso # (Auto) 0.04 K/uL (0.00-0.20) 09/19/24 15:20 Immature Gran # (Auto) 0.04 K/uL (0.01-0.20) 09/19/24 15:20 PT 10.8 Seconds (9.0-12.0) 09/19/24 15:20 INR 1.0 (0.9-1.1) 09/19/24 15:20 APTT 34 Seconds (21-31) H 09/19/24 15:20 PTT Ratio 1.3 09/19/24 15:20 Sodium 137 mmol/L (136-145) 09/19/24 15:20 Potassium 4.6 mmol/L (3.5-5.1) 09/19/24 15:20 Chloride 106 mmol/L (98-107) 09/19/24 15:20 Carbon Dioxide 22 mmol/L (21-32) 09/19/24 15:20 Anion Gap 9 (3-11) 09/19/24 15:20 BUN 52 mg/dl (6-23) H 09/19/24 15:20 Creatinine 1.94 mg/dl (0.6-1.4) H 09/19/24 15:20 Est Cr Clr Drug Dosing 23.6 ml/min 09/19/24 15:20 eGFR 33.93 09/19/24 15:20 BUN/Creatinine Ratio 26.8 (10-20) H 09/19/24 15:20 Glucose 121 mg/dl (70-99(Fasting)) H 09/19/24 15:20 Lactate 0.7 mmol/L (0.4-2.0) 09/19/24 16:09 Calcium 9.4 mg/dl (8.6-10.3) 09/19/24 15:20 Magnesium 1.8 mg/dl (1.7-2.4) 09/19/24 15:20 Total Bilirubin 0.4 mg/dl (0.2-1.0) 09/19/24 15:20 AST 18 U/L (13-39) 09/19/24 15:20 ALT 24 U/L (7-52) 09/19/24 15:20 Alkaline Phosphatase 197 U/L (34-104) H 09/19/24 15:20 Troponin I High Sens 3.6 pg/ml (0-20) 09/19/24 15:20 Total Protein 7.3 gm/dl (6.0-8.3) 09/19/24 15:20 Albumin 3.6 gm/dl (3.4-5.0) 09/19/24 15:20 Globulin 3.7 gm/dl (2.5-4.0) 09/19/24 15:20 Albumin/Globulin Ratio 1.0 (0.9-2) 09/19/24 15:20 Procalcitonin 0.26 ng/ml (0-0.5) 09/19/24 15:20 Urine Color Yellow 09/19/24 20:08 Urine Appearance Clear (Clear) 09/19/24 20:08 Urine pH 5.0 (4.5-7.5) 09/19/24 20:08 Ur Specific [place] 1.043 (1.000-1.030) H 09/19/24 20:08 Urine Protein Negative (Negative) 09/19/24 20:08 Urine Glucose (UA) Negative (Negative) 09/19/24 20:08 Urine Ketones Negative (Negative) 09/19/24 20:08 Urine Blood Negative (Negative) 09/19/24 20:08 Urine Nitrite Negative (Negative) 09/19/24 20:08 Urine Bilirubin Negative (Negative) 09/19/24 20:08 Urine Urobilinogen Negative (Negative) 09/19/24 20:08 Ur Leukocyte Esterase Negative (Negative) 09/19/24 20:08 Urine Comment 09/19/24 20:08 Adenovirus (PCR) Not Detected (NotDetected) 09/19/24 15:01 B. pertussis DNA (PCR) Not Detected (NotDetected) 09/19/24 15:01 B.parapertussis DNA PCR Not Detected (NotDetected) 09/19/24 15:01 C. pneumoniae DNA (PCR) Not Detected (NotDetected) 09/19/24 15:01 Coronavirus OC43 (PCR) Not Detected (NotDetected) 09/19/24 15:01 Coronavirus HKU1 (PCR) Not Detected (NotDetected) 09/19/24 15:01 Coronavirus 229E (PCR) Not Detected (NotDetected) 09/19/24 15:01 SARS-CoV-2 (PCR) Not Detected (NotDetected) 09/19/24 15:01 Coronavirus NL63 (PCR) Not Detected (NotDetected) 09/19/24 15:01 Human Metapneumovir PCR Not Detected (NotDetected) 09/19/24 15:01 Influenza Type A (PCR) Not Detected (NotDetected) 09/19/24 15:01 Influenza Type B (PCR) Not Detected (NotDetected) 09/19/24 15:01 M. pneumoniae (PCR) Not Detected (NotDetected) 09/19/24 15:01 Parainfluenza 1 (PCR) Not Detected (NotDetected) 09/19/24 15:01 Parainfluenza 2 (PCR) Not Detected (NotDetected) 09/19/24 15:01 Parainfluenza 3 (PCR) Not Detected (NotDetected) 09/19/24 15:01 Parainfluenza 4 (PCR) Not Detected (NotDetected) 09/19/24 15:01 RSV (PCR) Not Detected (NotDetected) 09/19/24 15:01 Entero/Rhino (PCR) Not Detected (NotDetected) 09/19/24 15:01 Impressions Chest X-Ray 09/19/24 14:38 XR chest 1V portable CLINICAL HISTORY: Sepsis COMPARISON STUDY: 06/10/2023 CT FINDINGS: Right chest port tip is near the cavoatrial junction. Heart size and pulmonary vasculature are normal. There is prominence of the right hilum, grossly stable. There are stable stranding opacities at the right lung. Stable mild opacity at the right base with blunting of the right costophrenic angle. Left lung remains well aerated. No pneumothorax. IMPRESSION: Stable findings at the right lung. These likely correlate with the right hilar mass and very small right pleural effusion and scarring/atelectasis seen on the prior chest CTA. No definite adverse change seen. ACT 112: Negative or not required by law. Electronically signed by: Trevin Brady M.D. 09/19/2024 3:57 PM Abdomen/Pelvis CT 09/19/24 14:58 CT ABDOMEN and PELVIS with INTRAVENOUS CONTRAST HISTORY: Abdominal pain TECHNIQUE: CT abdomen and pelvis with contrast. IV CONTRAST: 100 mL of OMNIPAQUE 300 ENTERIC CONTRAST: Not Given COMPARISON: CT abdomen pelvis May 29, 2023. FINDINGS: LOWER CHEST: Chronic right lower rib cage deformities. Scarring in the right lung. Cardiomegaly. Coronary and valvular calcifications. Small pericardial fluid. LIVER: Subcentimeter hypodensities that are too small to characterize. GALLBLADDER/BILIARY: Unremarkable gallbladder. No abnormal biliary dilatation. SPLEEN: No focal lesion identified. PANCREAS: Small cystic structure seemingly arising from the pancreas measuring up to 1.0 cm may represent IPMN's. ADRENALS: Unremarkable. KIDNEYS: Cortical and parapelvic cysts. No stones or hydronephrosis identified. PERITONEUM/RETROPERITONEUM. There are multiple new peritoneal soft tissue deposits noted. For example in the right anterior peritoneum and there is a oblong shaped enhancing structure measuring 1.5 cm (series 3, image 159). As an additional example, in the left upper quadrant in the gastrosplenic interval, there are multiple enhancing lesions measuring up to 1.5 cm (series 3 image 48). No aortic aneurysm. Enlarged lymph nodes are seen in portacaval region. GASTROINTESTINAL: No obstruction. There are diffuse inflammatory changes to the hollow viscus with gastric wall thickening and multiple loops of small bowel demonstrating wall thickening. There is diffuse wall thickening involving the colon with a masslike irregularity and wall thickening involving the sigmoid colon. There are large diverticulula arising from the sigmoid colon projecting posteriorly redemonstrated. There are new heterogeneously enhancing masslike structures seemingly abutting the colon: There is a 3.5 cm centrally hypodense lobulated mass abutting the left hemicolon (series 3, image 100). Additional similar mass abutting the sigmoid colon measuring 2.5 cm (image 238). REPRODUCTIVE: Prostamegaly URINARY BLADDER: Unremarkable ABDOMINAL WALL: Fluid containing structure measuring 4.0 cm is present in the right groin. BONES: No acute findings. IMPRESSION: Masslike wall thickening with irregularity in the sigmoid colon is identified. This could represent colitis and/or diverticulitis however malignancy is a consideration. Multiple heterogeneously enhancing masses with central hypodensity are noted abutting the large bowel as discussed. This could represent malignancies of the colon or peritoneal deposits of tumor. Additional peritoneal deposits are present scattered throughout the abdomen. Overall the findings are consistent with a neoplastic/malignant process and colon cancer with peritoneal carcinomatosis may be a consideration. Metastatic disease is also possible. Recommend clinical correlation with medical history and medical workup up to this point. If necessary, tissue sampling may be considered for histology. Inflammatory changes of the stomach and small bowel loops may additionally suggest gastroenteritis Fluid containing structure measuring 4.0 cm in the right groin. No significant inflammation is present at this site. Electronically signed by Júnior Gordon 09-19-2024 7:37 PM ECG Additional Comments: ECG. Sinus bradycardia with first-degree block with a rate of 54. T wave inversion lead V1 QTc 394 Code Status & VTE Plan VTE Prophylaxis Plan VTE Prophylaxis will be ordered: Yes
[2024-09-19] MEDS ORDERED: ONDANSETRON INJ 2 MG/ML 2 ML VIAL IV PRN (22:48)
[2024-09-19] MEDS ORDERED: GLUCOSE 10 TAB/TUBE PO PRN (22:48)
[2024-09-19] MEDS ORDERED: GLUCOSE 40% GEL 15 GM TUBE PO PRN (22:48)
[2024-09-19] MEDS ORDERED: GLUCAGON FOR INJ 1 MG VIAL SQ PRN (22:48)
[2024-09-19] MEDS ORDERED: CARBOHYDRATES FOR HYPOGLYCEMIA PO PRN (22:48)
[2024-09-19] MEDS ORDERED: DEXTROSE 50% 50 ML SYRINGE IV PRN (22:48)
--- NOTE | 2024-09-19 23:10 | Surgery Consultation ---
Date of Consultation September 19, 2024 Assessment & Plan (1) Diverticulitis: Patient has been admitted to hospital service. From surgery perspective we recommend following: By CT scan the patient may be suffering from an element of diverticulitis Would recommend keeping him n.p.o. for this evening Provide IV fluid for hydration He is receiving antibiotics in form of cefepime and Flagyl which should continue I suspect the patient is also suffering from sequela from metastatic disease as evidenced by his most recent PET scan which does show evidence of progression/spread of previously noted cancer. Patient notes that he is to see his oncologist within the next week we will discuss with the patient the best possible treatment options for this issue We can consider advancing the patient's diet if his abdominal exam remains benign. When we do advance his diet we will begin with clear liquids Additional recommendations be forthcoming based on his clinical course as unfolds Supervising Physician Co-Signing Physician Notes Patient discussed with BHARAT overnight, labs image reviewed, agree with above. For full details, please see today's progress note. History of Present Illness Reason for Consultation: Diverticulitis Attending Physician: Matt Nova MD History of Present Illness This is a 84-year-old male who presented to the emergency department secondary to generalized weakness. He also reports some generalized abdominal pain as well as vomiting and diarrhea. He notes his appetite has been bad for the past few days and he has had episodes of nausea. He notes he has had persistent diarrhea for approximately 1 week. He denies any bloody bowel movements. He does have a history of lung cancer for which she had some surgical resection. He also says that he was previously taking chemotherapy and has had radiation t herapy. He says that he is now on oral chemotherapy medication and follows locally with Dr. Zapien. Patient says that he did have a PET scan approximately 2 weeks ago. He says he has not received the results of this PET scan but is scheduled to see his oncologist within the next week. Since arrival to hospital patient has had labs and imaging which) reviewed. Chest x-ray showed no evidence of pneumothorax. There is a mild opacity at the right lung base. CT scan abdomen pelvis showed the patient had masslike thickening of the sigmoid colon felt to represent either colitis or diverticulitis. Malignancy could not be excluded. Patient was also noted to have multiple enhancing masses abutting the large bowel also potentially representing malignancy. There are numerous peritoneal deposits scattered throughout the abdomen noted. Labs included CBC white blood cell count platelet count were normal. Hemoglobin and hematocrit are 8.8 and 28.2. Coagulation studies showed an INR of 1.0. Chemistry profile showed sodium and potassium were normal. BUN and creatinine were 52 and 1.9. Urinalysis was not indicative of infection. A bio fire study was checked and all viruses tested for were negative. At the time my interview he was resting comfortably in bed he was no distress. Allergies Allergy/AdvReac Type Severity Reaction Status Date / Time nafcillin Allergy Intermediate hives Verified 09/19/24 18:13 Home Medications Medication Instructions Recorded Confirmed Type losartan 100 mg tablet 100 mg PO DAILY 06/04/23 09/19/24 History multivitamin with minerals-folic 1 tab PO DAILY 06/04/23 09/19/24 History acid 200 mcg chewable tablet (Men's Multivitamin Gummies) ondansetron HCl 8 mg tablet 8 mg PO Q8H PRN NAUSEA/VOMITING 06/04/23 09/19/24 History prochlorperazine maleate 10 mg 10 mg PO QID PRN NAUSEA/VOMITING 06/04/23 History tablet (Compazine) guaifenesin 1,200 mg tablet, 1,200 mg PO DAILY PRN Congestion 11/25/23 09/19/24 History extended release 12 hr (Mucinex) mecobalamin (vitamin B12) 1,000 5,000 mcg PO DAILY 11/25/23 09/19/24 History mcg chewable tablet (B12 Active) ferrous sulfate 325 mg (65 mg 325 mg PO DAILY 09/19/24 09/19/24 History iron) tablet (iron) levothyroxine 88 mcg tablet 88 mcg PO DAILYBB 09/19/24 09/19/24 History metformin 1,000 mg tablet 1,000 mg PO BIDM 09/19/24 09/19/24 History sotorasib 120 mg tablet (Lumakras) 480 mg PO QAM 09/19/24 09/19/24 History Patient History Medical History Moderate aortic regurgitation Chronic right shoulder pain Mixed hyperlipidemia Type 2 diabetes mellitus Statin intolerance Vitamin B 12 deficiency Surgical History S/P thoracotomy Robotic right VATS (thoracoscopy) --staging lymphadenectomy Right thoracotomy -- exploration for tumor resectability 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 Status post right foot surgery Hx of appendectomy History of bronchoscopy Family History Mother Cancer Lung cancer Father Cancer Lung cancer Social History Smoking Status: Former smoker Tobacco Type: Cigarettes Age Started Using Tobacco: 17; Age Quit Using Tobacco: 52; packs per day: 2.5; Second Hand Exposure: Yes; Hx Alcohol Use: No Hx Substance Use: No Preferred Language: Thai Communication Ability: Effective Visual Impairment: No Limitations Beliefs That Will Affect Care: None Current Living Situation: Spouse current occupational status: retired Other Information That Helps Us Care for You: No Feels Safe at Home: Yes Safety Concerns: Feels Safe At This Time Assistive Devices: None Review of Systems Review of Systems: All systems reviewed & are unremarkable except as noted in HPI & below Physical Exam Constitutional: WD/WN, vitals as above Eyes: no conjunctival abnormality ENMT: Ears: no hearing impairment and no external ear abnormality Mouth: no oropharynx abnormality Neck: trachea midline Respiratory: normal respiratory effort; no respiratory distress and no labored breathing Cardiovascular: Rate/Rhythm: regular rate and regular rhythm Gastrointestinal (Abdomen): At the time my exam the patient's abdomen was soft without tenderness or rigidity. There are no signs of peritonitis. There is no pain with palpation Musculoskeletal: No calf tenderness Skin: no rashes Neurologic: moves all extremities Psychiatric: A+Ox3, euthymic affect Results & Data Vital Signs (Past 12 Hours) Vital Signs Temp Pulse Pulse Resp BP BP Pulse Ox 09/19/24 22:00 58 L 17 125/51 L 97 09/19/24 20:00 59 L 18 118/56 L 98 09/19/24 18:31 58 L 09/19/24 18:00 74 17 124/81 97 09/19/24 16:14 09/19/24 16:14 09/19/24 16:14 59 L 19 140/62 98 09/19/24 14:40 59 L 09/19/24 14:29 35.7 C L 65 20 96/50 L 96 O2 Del Method 09/19/24 22:00 Room Air 09/19/24 20:00 Room Air 09/19/24 18:31 09/19/24 18:00 Room Air 09/19/24 16:14 Room Air 09/19/24 16:14 Room Air 09/19/24 16:14 Room Air 09/19/24 14:40 09/19/24 14:29 Room Air PG Care Time/CCT Total # of Minutes Spent Total Time Spent with Patient: Total time spent is greater than 50% in coordination of care (as documented) at patient's floor/unit and/or counseling patient: Coding Level of Care Code 08969 INT INP/OBS CARE MIN Diagnoses Diverticulitis K57.92
[2024-09-19] MEDS: INSULIN ASPART PER UNIT CHARGE SC SCH (23:37)
[2024-09-19] MEDS: SODIUM CHLORIDE 0.9% 1,000 ML IV SCH (23:56)
[2024-09-19] MEDS: CEFEPIME 2000MG 2,000 MG/20 ML SYR IV SCH (23:56)
[2024-09-19] MEDS: metroNIDAZOLE 500 MG/100 ML BAG IV SCH (23:57)
[2024-09-20] MEDS: HEPARIN SOD 5,000 UNIT/0.5 ML VIAL SQ SCH (00:10)
[2024-09-20] MEDS: LEVOTHYROXINE SODIUM 88 MCG TABLET PO SCH (05:43)
[2024-09-20 06:48] LABS: Hematocrit (blood only) 24.5 % (42.0-52.0); Hemoglobin 7.6 g/dl (14.0-18.0); Immature Granulocytes # (auto) 0.02 K/uL (0.01-0.20); Immature Granulocytes % (auto) 0.3 %; Mean Corpuscular Hemoglobin 28.5 pg (25.0-34.0); Mean Corpuscular Volume 91.8 fL (80.0-100.0); Platelet Count 290 K/uL (130-400); RDW Standard Deviation 46.5 fL (36.4-46.3); Red Blood Count 2.67 M/uL (4.70-6.10); White Blood Count 5.89 K/ul (4.8-10.8)
[2024-09-20 07:06] LABS: Anion Gap 7.0 (3-11); Blood Urea Nitrogen 41.0 mg/dl (6-23); Calcium 8.1 mg/dl (8.6-10.3); Carbon Dioxide 20.0 mmol/L (21-32); Chloride 113.0 mmol/L (98-107); Creatinine Clr Calc Pharmacy 30.0 ml/min; Glucose 72.0 mg/dl (70-99(Fasting)); Magnesium 1.7 mg/dl (1.7-2.4); Potassium 4.5 mmol/L (3.5-5.1); Sodium 140.0 mmol/L (136-145)
[2024-09-20 07:13] LABS: RBC Morphology Unremarkable
[2024-09-20] MEDS: D5W AND NSS 1,000 ML IV SCH (07:30)
[2024-09-20 07:40] LABS: Hemoglobin A1C 6.0 % (4.5-5.6)
[2024-09-20] MEDS: CYANOCOBALAMIN (B-12) 2,500 MCG TABLET PO SCH (09:11)
[2024-09-20] MEDS: FERROUS SULFATE 325 MG TAB PO SCH (09:11)
[2024-09-20] MEDS: CEROVITE ADV FORMULA TAB PO SCH (09:11)
--- NOTE | 2024-09-20 11:49 | Surgery Progress Note ---
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 in the abdomen may start clear liquids, continue IV antibiotics Start clear liquids, continue IV antibiotics No indication for surgery at this time Surgical follow, call with questions or concerns Poor surgical candidate given metastatic lung cancer with carcinomatosis (2) Malignant neoplasm of right upper lobe of lung: (3) Metastatic lung cancer (metastasis from lung to other site): Admission and Anticipated Discharge Date Admission Date: September 19, 2024 Subjective Admitted with possible diverticulitis and acute kidney injury in setting of metastatic adenocarcinoma of the lung on chemotherapy. Last treatment yesterday. Follows with Dr. Zapien with [facility]. Doing well, having loose bowel movements. Minimal abdominal pain. When he did have his pain in his upper abdomen. He does endorse decreased appetite and nausea over the past several weeks. Physical Exam Constitutional: + thin Gastrointestinal (Abdomen): normal bowel sounds, soft, nontender, no hepatosplenomegaly Results & Data Vital Signs (Past 12 Hours) Vital Signs Temp Pulse Pulse Resp BP Pulse Ox O2 Del Method 09/20/24 11:39 36.6 C 56 L 16 108/52 L 96 Room Air 09/20/24 07:41 36.8 C 64 16 110/47 L 97 Room Air 09/20/24 07:22 56 L 09/20/24 04:55 36.5 C 62 18 126/58 L 95 Room Air Laboratory Results Laboratory Results - last 24 hr 09/19/24 09/19/24 09/19/24 15:01 15:20 16:09 WBC 7.50 RBC 3.11 L Hgb 8.8 L Hct 28.2 L MCV 90.7 MCH 28.3 MCHC 31.2 L RDW Std Deviation 45.1 RDW Coeff of Tye 13.8 Plt Count 367 MPV 9.8 Immature Gran % (Auto) 0.5 Neut % (Auto) 83.9 Lymph % (Auto) 6.3 Stone % (Auto) 8.5 Eos % (Auto) 0.3 Baso % (Auto) 0.5 Neut # (Auto) 6.29 Lymph # (Auto) 0.47 L Stone # (Auto) 0.64 H Eos # (Auto) 0.02 Baso # (Auto) 0.04 Immature Gran # (Auto) 0.04 RBC Morphology PT 10.8 INR 1.0 APTT 34 H PTT Ratio 1.3 Sodium 137 Potassium 4.6 Chloride 106 Carbon Dioxide 22 Anion Gap 9 BUN 52 H Creatinine 1.94 H Est Cr Clr Drug Dosing 23.6 eGFR 33.93 BUN/Creatinine Ratio 26.8 H Glucose 121 H POC Glucose Estimat Average Glucose Hemoglobin A1c Lactate 0.7 Calcium 9.4 Magnesium 1.8 Total Bilirubin 0.4 AST 18 ALT 24 Alkaline Phosphatase 197 H Troponin I High Sens 3.6 Total Protein 7.3 Albumin 3.6 Globulin 3.7 Albumin/Globulin Ratio 1.0 Procalcitonin 0.26 Urine Color Urine Appearance Urine pH Ur Specific [place] Urine Protein Urine Glucose (UA) Urine Ketones Urine Blood Urine Nitrite Urine Bilirubin Urine Urobilinogen Ur Leukocyte Esterase Urine Comment Stl C. cayetanensis PCR Stool Rotavirus A PCR Stl Adenov F 40/ PCR Stool Astrovirus (PCR) Stool Campylobacter PCR Stool Cryptosporidium PCR Stl E.coli Shiga Tox PCR Stl Enterotoxigenic E PCR Stool EAEC (PCR) Stl E. histolytica PCR Stool Giardia Lamblia PCR Stool Salmonella PCR Stool Sapovirus (PCR) Stl P. shigelloides PCR Stl Shigella/EIEC PCR St Y.enterocolitica PCR Stool Vibrio (PCR) Stl Vibrio cholerae PCR Stl Norovirus GI/GII PCR Adenovirus (PCR) Not Detected B. pertussis DNA (PCR) Not Detected B.parapertussis DNA PCR Not Detected C. pneumoniae DNA (PCR) Not Detected Coronavirus OC43 (PCR) Not Detected Coronavirus HKU1 (PCR) Not Detected Coronavirus 229E (PCR) Not Detected SARS-CoV-2 (PCR) Not Detected Coronavirus NL63 (PCR) Not Detected Human Metapneumovir PCR Not Detected Influenza Type A (PCR) Not Detected Influenza Type B (PCR) Not Detected M. pneumoniae (PCR) Not Detected Parainfluenza 1 (PCR) Not Detected Parainfluenza 2 (PCR) Not Detected Parainfluenza 3 (PCR) Not Detected Parainfluenza 4 (PCR) Not Detected RSV (PCR) Not Detected Entero/Rhino (PCR) Not Detected 09/19/24 09/19/24 09/20/24 20:08 23:10 06:24 WBC 5.89 RBC 2.67 L Hgb 7.6 L Hct 24.5 L MCV 91.8 MCH 28.5 MCHC 31.0 L RDW Std Deviation 46.5 H RDW Coeff of Tye 13.8 Plt Count 290 MPV 9.7 Immature Gran % (Auto) 0.3 Neut % (Auto) 77.0 Lymph % (Auto) 10.9 Stone % (Auto) 10.5 Eos % (Auto) 0.8 Baso % (Auto) 0.5 Neut # (Auto) 4.53 Lymph # (Auto) 0.64 L Stone # (Auto) 0.62 H Eos # (Auto) 0.05 Baso # (Auto) 0.03 Immature Gran # (Auto) 0.02 RBC Morphology Unremarkable PT INR APTT PTT Ratio Sodium 140 Potassium 4.5 Chloride 113 H Carbon Dioxide 20 L Anion Gap 7 BUN 41 H Creatinine 1.53 H D Est Cr Clr Drug Dosing 30.0 eGFR 45.11 BUN/Creatinine Ratio 26.8 H Glucose 72 POC Glucose 86 Estimat Average Glucose 126 Hemoglobin A1c 6.0 H Lactate Calcium 8.1 L Magnesium 1.7 Total Bilirubin AST ALT Alkaline Phosphatase Troponin I High Sens Total Protein Albumin Globulin Albumin/Globulin Ratio Procalcitonin Urine Color Yellow Urine Appearance Clear Urine pH 5.0 Ur Specific [place] 1.043 H Urine Protein Negative Urine Glucose (UA) Negative Urine Ketones Negative Urine Blood Negative Urine Nitrite Negative Urine Bilirubin Negative Urine Urobilinogen Negative Ur Leukocyte Esterase Negative Urine Comment Stl C. cayetanensis PCR Stool Rotavirus A PCR Stl Adenov F 40/41 PCR Stool Astrovirus (PCR) Stool Campylobacter PCR Stool Cryptosporidium PCR Stl E.coli Shiga Tox PCR Stl Enterotoxigenic E PCR Stool EAEC (PCR) Stl E. histolytica PCR Stool Giardia Lamblia PCR Stool Salmonella PCR Stool Sapovirus (PCR) Stl P. shigelloides PCR Stl Shigella/EIEC PCR St Y.enterocolitica PCR Stool Vibrio (PCR) Stl Vibrio cholerae PCR Stl Norovirus GI/GII PCR Adenovirus (PCR) B. pertussis DNA (PCR) B.parapertussis DNA PCR C. pneumoniae DNA (PCR) Coronavirus OC43 (PCR) Coronavirus HKU1 (PCR) Coronavirus 229E (PCR) SARS-CoV-2 (PCR) Coronavirus NL63 (PCR) Human Metapneumovir PCR Influenza Type A (PCR) Influenza Type B (PCR) M. pneumoniae (PCR) Parainfluenza 1 (PCR) Parainfluenza 2 (PCR) Parainfluenza 3 (PCR) Parainfluenza 4 (PCR) RSV (PCR) Entero/Rhino (PCR) 09/20/24 09/20/24 06:27 Unknown WBC RBC Hgb Hct MCV MCH MCHC RDW Std Deviation RDW Coeff of Tye Plt Count MPV Immature Gran % (Auto) Neut % (Auto) Lymph % (Auto) Stone % (Auto) Eos % (Auto) Baso % (Auto) Neut # (Auto) Lymph # (Auto) Stone # (Auto) Eos # (Auto) Baso # (Auto) Immature Gran # (Auto) RBC Morphology PT INR APTT PTT Ratio Sodium Potassium Chloride Carbon Dioxide Anion Gap BUN Creatinine Est Cr Clr Drug Dosing eGFR BUN/Creatinine Ratio Glucose POC Glucose 78 Estimat Average Glucose Hemoglobin A1c Lactate Calcium Magnesium Total Bilirubin AST ALT Alkaline Phosphatase Troponin I High Sens Total Protein Albumin Globulin Albumin/Globulin Ratio Procalcitonin Urine Color Urine Appearance Urine pH Ur Specific [place] Urine Protein Urine Glucose (UA) Urine Ketones Urine Blood Urine Nitrite Urine Bilirubin Urine Urobilinogen Ur Leukocyte Esterase Urine Comment Stl C. cayetanensis PCR Pending Stool Rotavirus A PCR Pending Stl Adenov F 40/41 PCR Pending Stool Astrovirus (PCR) Pending Stool Campylobacter PCR Pending Stool Cryptosporidium PCR Pending Stl E.coli Shiga Tox PCR Pending Stl Enterotoxigenic E PCR Pending Stool EAEC (PCR) Pending Stl E. histolytica PCR Pending Stool Giardia Lamblia PCR Pending Stool Salmonella PCR Pending Stool Sapovirus (PCR) Pending Stl P. shigelloides PCR Pending Stl Shigella/EIEC PCR Pending St Y.enterocolitica PCR Pending Stool Vibrio (PCR) Pending Stl Vibrio cholerae PCR Pending Stl Norovirus GI/GII PCR Pending Adenovirus (PCR) B. pertussis DNA (PCR) B.parapertussis DNA PCR C. pneumoniae DNA (PCR) Coronavirus OC43 (PCR) Coronavirus HKU1 (PCR) Coronavirus 229E (PCR) SARS-CoV-2 (PCR) Coronavirus NL63 (PCR) Human Metapneumovir PCR Influenza Type A (PCR) Influenza Type B (PCR) M. pneumoniae (PCR) Parainfluenza 1 (PCR) Parainfluenza 2 (PCR) Parainfluenza 3 (PCR) Parainfluenza 4 (PCR) RSV (PCR) Entero/Rhino (PCR) Diagnostic Findings CT scan personally viewed interpreted, also reviewed with Dr. Brady from radiology. There is evidence of carcinomatosis along with a metastatic lesion along the sigmoid colon. There is some mild possible diverticulitis in the same area. No perforation. Chest X-Ray 09/19/24 14:38 XR chest 1V portable CLINICAL HISTORY: Sepsis COMPARISON STUDY: 06/10/2023 CT FINDINGS: Right chest port tip is near the cavoatrial junction. Heart size and pulmonary vasculature are normal. There is prominence of the right hilum, grossly stable. There are stable stranding opacities at the right lung. Stable mild opacity at the right base with blunting of the right costophrenic angle. Left lung remains well aerated. No pneumothorax. IMPRESSION: Stable findings at the right lung. These likely correlate with the right hilar mass and very small right pleural effusion and scarring/atelectasis seen on the prior chest CTA. No definite adverse change seen. ACT 112: Negative or not required by law. Electronically signed by: Trevin Brady M.D. 09/19/2024 3:57 PM Abdomen/Pelvis CT 09/19/24 14:58 CT ABDOMEN and PELVIS with INTRAVENOUS CONTRAST HISTORY: Abdominal pain TECHNIQUE: CT abdomen and pelvis with contrast. IV CONTRAST: 100 mL of OMNIPAQUE 300 ENTERIC CONTRAST: Not Given COMPARISON: CT abdomen pelvis May 29, 2023. FINDINGS: LOWER CHEST: Chronic right lower rib cage deformities. Scarring in the right lung. Cardiomegaly. Coronary and valvular calcifications. Small pericardial fluid. LIVER: Subcentimeter hypodensities that are too small to characterize. GALLBLADDER/BILIARY: Unremarkable gallbladder. No abnormal biliary dilatation. SPLEEN: No focal lesion identified. PANCREAS: Small cystic structure seemingly arising from the pancreas measuring up to 1.0 cm may represent IPMN's. ADRENALS: Unremarkable. KIDNEYS: Cortical and parapelvic cysts. No stones or hydronephrosis identified. PERITONEUM/RETROPERITONEUM. There are multiple new peritoneal soft tissue deposits noted. For example in the right anterior peritoneum and there is a oblong shaped enhancing structure measuring 1.5 cm (series 3, image 159). As an additional example, in the left upper quadrant in the gastrosplenic interval, there are multiple enhancing lesions measuring up to 1.5 cm (series 3 image 48). No aortic aneurysm. Enlarged lymph nodes are seen in portacaval region. GASTROINTESTINAL: No obstruction. There are diffuse inflammatory changes to the hollow viscus with gastric wall thickening and multiple loops of small bowel demonstrating wall thickening. There is diffuse wall thickening involving the colon with a masslike irregularity and wall thickening involving the sigmoid colon. There are large diverticulula arising from the sigmoid colon projecting posteriorly redemonstrated. There are new heterogeneously enhancing masslike structures seemingly abutting the colon: There is a 3.5 cm centrally hypodense lobulated mass abutting the left hemicolon (series 3, image 100). Additional similar mass abutting the sigmoid colon measuring 2.5 cm (image 238). REPRODUCTIVE: Prostamegaly URINARY BLADDER: Unremarkable ABDOMINAL WALL: Fluid containing structure measuring 4.0 cm is present in the right groin. BONES: No acute findings. IMPRESSION: Masslike wall thickening with irregularity in the sigmoid colon is identified. This could represent colitis and/or diverticulitis however malignancy is a consideration. Multiple heterogeneously enhancing masses with central hypodensity are noted abutting the large bowel as discussed. This could represent malignancies of the colon or peritoneal deposits of tumor. Additional peritoneal deposits are present scattered throughout the abdomen. Overall the findings are consistent with a neoplastic/malignant process and colon cancer with peritoneal carcinomatosis may be a consideration. Metastatic disease is also possible. Recommend clinical correlation with medical history and medical workup up to this point. If necessary, tissue sampling may be considered for histology. Inflammatory changes of the stomach and small bowel loops may additionally suggest gastroenteritis Fluid containing structure measuring 4.0 cm in the right groin. No significant inflammation is present at this site. Electronically signed by Júnior Gordon 09-19-2024 7:37 PM PG Care Time/CCT Total # of Minutes Spent Total Time Spent with Patient: Total time spent is greater than 50% in coordination of care (as documented) at patient's floor/unit and/or counseling patient: Coding Level of Care Code 86409 SUB INP/OBS CARE 2/35MIN Diagnoses Diverticulitis K57.92 Malignant neoplasm of right upper lobe of lung C34.11 Metastatic lung cancer (metastasis from lung to other site) C34.90
[2024-09-20 12:45] LABS: Adenovirus F 40/41 PCR Not Detected (NotDetected); Campylobacter PCR Not Detected (NotDetected); Enteroaggregative E.coli(EAEC) Not Detected (NotDetected); Shiga-like Toxin E.coli (STEC) Not Detected (NotDetected); Vibrio species PCR Not Detected (NotDetected)
[2024-09-20] MEDS: LACTATED RINGER'S 1,000 ML IV SCH (13:09)
--- NOTE | 2024-09-20 13:27 | Hospitalist Progress Note ---
Date of Service September 20, 2024 Assessment & Plan (1) Nausea, vomiting, and diarrhea: Plan: 84-year-old male with past med history significant for type 2 diabetes, hypothyroidism, hyperlipidemia, adenocarcinoma of right lung, moderate aortic regurgitation, hypertension, vitamin B12 deficiency, statin intolerance presents with nausea vomiting and diarrhea. Patient having ongoing diarrhea since last 1 week to 10 days 5-6 times daily. Diarrhea is watery. No blood in the stools. Today he was having nausea and dry heaves and had episode of vomiting. Earlier had abdominal pain that got resolved now. Denies any fevers. No chest pain or shortness of breath. Has cough and brings up white phlegm. Denies any headache. Vision is okay. No runny nose. Appetite is poor. Sometimes have some difficulty to swallowing. On regular food. Ambulates without support but walking slowly. Hemodynamics are okay. Patient had PET scan on 09/12/2024 and has appointment with heme-onc coming Thursday. Toxic colitis/gastroenteritis secondary to chemotherapy Nausea vomiting and diarrhea likely due to Sotorasib --CT ABD suggestive of sigmoidal colitis/diverticulitis, gastroenteritis, metastatic disease and peritoneal carcinomatosis -- Stool PCR negative --Stool for C. difficile pending --Continue IV fluids --Needs follow-up with oncology on discharge Acute Diverticulitis --CT scan as above --Stool for C. difficile pending --Blood cultures pending --Empirically on Zosyn --liquid diet today --Appreciate surgery input Acute kidney injury Baseline creatinine around 1.1-1.2 Likely prerenal secondary to GI losses Cr:1.9>1.5 Hold losartan, metformin Avoid nephrotoxic agents as able Continue IV fluids Monitor renal function Metastatic adenocarcinoma of right lung Metastatic Peritoneal carcinomatosis Was on immunotherapy started on 08/20/2023 Disease progression noted on PET scan on 05/25/2024 Currently on sotorasib, started since last week of May 2024 Patient had a PET scan on September 12 2024 which showing "increase in size and metabolic activity of perihilar right upper lobe radiation fibrosis/contagious hilar lymphadenopathy. Decrease in size of multiple active peritoneal implants. Acute sigmoid diverticulitis with contained perforation. Small pericardial effusion". Has appointment with heme-onc coming Thursday as per . --CT Scan showed sigmoidal colitis/diverticulitis, gastroenteritis, metastatic disease and peritoneal carcinomatosis. Fluid containing structure 4 cm in the right groin. --Hold Sotorasib for now --Will discuss with primary oncologist Dr. Zapien for further recommendations DM II HbA1c 6.0 Hold metformin Continue insulin per protocol Monitor blood glucose levels Consider to adjust dose of metformin on discharge due to renal function Hypertension Hold losartan for now IV hydralazine as needed Monitor blood pressure Hypothyroidism Continue levothyroxine Moderate aortic regurgitation Monitor for volume overload Anemia of chronic disease Drop in hemoglobin likely dilutional secondary to IV fluids No acute bleeding issues currently Continue iron supplements Monitor CBC DVT Px: Heparin SQ CODE STATUS Full code Disposition Expected discharge home when stable Admission and Anticipated Discharge Date Admission Date: September 19, 2024 Subjective Patient is seen and examined at bedside Denies any nausea, vomiting, diarrhea today Also denies any abdominal pain Admits to have poor oral intake Also denies any chest pain, dyspnea, dizziness Review of Systems Review of Systems: All systems reviewed & are unremarkable except as noted in Subjective Physical Exam Physical Exam: Physical Exam: Vitals signs as noted above General Appearance:Moderately built and nourished, no apparent distress Head: normocephalic, Atraumatic Eyes: normal inspection, EOMI Neck: supple, Trachea midline Respiratory/Chest: Normal breath sounds, CTA, +port on R side, No accessory m uscle use Cardiovascular: S1, S2,+ murmur Abdomen/GI:Soft, Non tender, Bowel sounds present Extremities/Musculoskeletal:normal inspection, no edema Neurologic/Psych:AAOX3, grossly no focal neurological deficits Skin: normal color, warm Results & Data Results & Data Vital Signs (Past 12 Hours) Vital Signs Temp Pulse Pulse Resp BP Pulse Ox O2 Del Method 09/20/24 11:39 36.6 C 56 L 16 108/52 L 96 Room Air 09/20/24 07:41 36.8 C 64 16 110/47 L 97 Room Air 09/20/24 07:22 56 L 09/20/24 04:55 36.5 C 62 18 126/58 L 95 Room Air Laboratory Results Short CBC 09/19/24 09/20/24 Range/Units 15:20 06:24 WBC 7.50 5.89 (4.8-10.8) K/ul Hgb 8.8 L 7.6 L (14.0-18.0) g/dl Hct 28.2 L 24.5 L (42.0-52.0) % Plt Count 367 290 (130-400) K/uL BMP 09/19/24 09/20/24 15:20 06:24 Sodium 137 140 Potassium 4.6 4.5 Chloride 106 113 H Carbon Dioxide 22 20 L BUN 52 H 41 H Creatinine 1.94 H 1.53 H D Glucose 121 H 72 Calcium 9.4 8.1 L Liver Function 09/19/24 Range/Units 15:20 Total Bilirubin 0.4 (0.2-1.0) mg/dl AST 18 (13-39) U/L ALT 24 (7-52) U/L Alkaline Phosphatase 197 H (34-104) U/L Albumin 3.6 (3.4-5.0) gm/dl Urine 09/19/24 Range/Units 20:08 Urine Color Yellow Urine Appearance Clear (Clear) Urine pH 5.0 (4.5-7.5) Ur Specific [place] 1.043 H (1.000-1.030) Urine Protein Negative (Negative) Urine Glucose (UA) Negative (Negative)
--- NOTE | 2024-09-20 15:00 | Electrocardiogram Report ---
Test Reason : Blood Pressure : */* mmHG Vent. Rate : 54 BPM Atrial Rate : 54 BPM P-R Int : 232 ms QRS Dur : 64 ms QT Int : 416 ms P-R-T Axes : 65 16 45 degrees QTcB Int : 394 ms Sinus bradycardia with 1st degree A-V block Low voltage QRS Septal infarct , age undetermined Abnormal ECG When compared with ECG of 07-Jul-2017 13:56, Septal infarct is now Present T wave inversion no longer evident in Inferior leads Confirmed by Willis Leal ([id number]) on 09/20/2024 3:00:48 PM Referred By: Confirmed By: Willis Leal
[2024-09-20] MEDS: INSULIN ASPART PER UNIT CHARGE SC SCH (18:13)
[2024-09-21 06:23] LABS: Hematocrit (blood only) 22.6 % (42.0-52.0); Hemoglobin 7.1 g/dl (14.0-18.0); Mean Corpuscular Hemoglobin 28.7 pg (25.0-34.0); Mean Corpuscular Volume 91.5 fL (80.0-100.0); Platelet Count 261 K/uL (130-400); RDW Standard Deviation 46.7 fL (36.4-46.3); Red Blood Count 2.47 M/uL (4.70-6.10); White Blood Count 5.16 K/ul (4.8-10.8)
[2024-09-21 06:47] LABS: Anion Gap 4.0 (3-11); Blood Urea Nitrogen 27.0 mg/dl (6-23); Calcium 8.2 mg/dl (8.6-10.3); Carbon Dioxide 22.0 mmol/L (21-32); Chloride 114.0 mmol/L (98-107); Creatinine Clr Calc Pharmacy 37.0 ml/min; Glucose 82.0 mg/dl (70-99(Fasting)); Potassium 4.4 mmol/L (3.5-5.1); Sodium 140.0 mmol/L (136-145)
--- NOTE | 2024-09-21 07:38 | Surgery Progress Note ---
Date of Service September 21, 2024 Assessment & Plan (1) Diverticulitis: Plan: Pt denies abd pain, n/v tolerating clears Clear for breakfast , poss fulls for lunch if continues w/o abd pain reports +flatus and Bm VSS, abd soft , mild TTP RLQ continue ABX will follow peripherally Admission and Anticipated Discharge Date Admission Date: September 19, 2024 Supervising Physician Co-Signing Physician Notes Patient seen and examined, labs reviewed, agree with above. On chemotherapy for adenocarcinoma of the lung with carcinomatosis, admitted with suspected diverticulitis. Feeling much better, having bowel movements, tolerating diet. On exam he is afebrile stable vitals. Abdomen soft, nontender. WBC downtrending. Advance to low fiber as tolerated, transition to oral antibiotics. Surgery will follow peripherally, call with questions or concerns. Subjective denies n/v , abd pain, cp , sob +flatus +bm Review of Systems Constitutional: no fever and no chills Respiratory: no dyspnea Cardiovascular: no chest pain Gastrointestinal: no abdominal pain, no bloating, no nausea and no vomiting Psychiatric: no confusion Physical Exam Constitutional: cooperative and comfortable; no acute distress Respiratory: normal respiratory effort and able to speak in complete sentences; no respiratory distress Cardiovascular: Rate/Rhythm: regular rate Gastrointestinal (Abdomen): Inspection/Auscultation: abdomen not distended Percussion/Palpation: + abdomen tender (RLQ) and abdomen soft Psychiatric: A+Ox3, euthymic affect Results & Data Vital Signs (Past 12 Hours) Vital Signs Temp Pulse Pulse Resp BP Pulse Ox O2 Del Method 09/21/24 03:51 98.2 F 65 18 120/69 96 Room Air 09/21/24 00:13 98.4 F 67 18 108/58 L 96 Room Air 09/20/24 22:48 66 09/20/24 19:46 97.9 F 69 18 109/58 L 97 Room Air Results CBC w Diff Results: RBC 2.47 M/uL (4.70-6.10) L 09/21/24 WBC 5.16 K/ul (4.8-10.8) 09/21/24 Hgb 7.1 g/dl (14.0-18.0) L 09/21/24 Hct 22.6 % (42.0-52.0) L 09/21/24 MCV 91.5 fL (80.0-100.0) 09/21/24 MCH 28.7 pg (25.0-34.0) 09/21/24 MCHC 31.4 g/dL (32.0-36.0) L 09/21/24 RDW Standard Deviation 46.7 fL (36.4-46.3) H 09/21/24 RDW Coefficient of Variation 14.0 % (11.5-14.5) 09/21/24 Plt Count 261 K/uL (130-400) 09/21/24 MPV 9.6 fL (9.4-12.4) 09/21/24 Neutrophils (%) (Auto) 77.0 % 09/20/24 Lymphocytes (%) (Auto) 10.9 % 09/20/24 Monocytes # (Auto) 0.62 K/uL (0.11-0.59) H 09/20/24 Eosinophils # (Auto) 0.05 K/uL (0.00-0.50) 09/20/24 Immature Granulocyte % (Auto) 0.3 % 09/20/24 Neutrophils # (Auto) 4.53 K/uL (1.40-6.50) 09/20/24 Lymphocytes # (Auto) 0.64 K/uL (1.20-3.40) L 09/20/24 Monocytes # (Auto) 0.62 K/uL (0.11-0.59) H 09/20/24 Eosinophils # (Auto) 0.05 K/uL (0.00-0.50) 09/20/24 Basophils # (Auto) 0.03 K/uL (0.00-0.20) 09/20/24 Immature Granulocyte # (Auto) 0.02 K/uL (0.01-0.20) 5 Red Blood Cell Morphology Unremarkable 09/20/24 PG Care Time/CCT Total # of Minutes Spent Total Time Spent with Patient: Total time spent is greater than 50% in coordination of care (as documented) at patient's floor/unit and/or counseling patient: Coding Level of Care Code 87654 SUB INP/OBS CARE 04/16MIN Diagnoses Diverticulitis K57.92
[2024-09-21] MEDS: guaiFENesin 600 MG TABCR PO PRN (08:30)
--- NOTE | 2024-09-21 10:42 | Hospitalist Progress Note ---
Date of Service September 21, 2024 Assessment & Plan (1) Nausea, vomiting, and diarrhea: Plan: 84-year-old male with past med history significant for type 2 diabetes, hypothyroidism, hyperlipidemia, adenocarcinoma of right lung, moderate aortic regurgitation, hypertension, vitamin B12 deficiency, statin intolerance presents with nausea vomiting and diarrhea. Patient having ongoing diarrhea since last 1 week to 10 days 5-6 times daily. Nausea and vomiting may be due to Sotorasib Diverticultis CT ABD this admission suggestive of sigmoidal colitis/diverticulitis, gastroenteritis, metastatic disease and peritoneal carcinomatosis Reviewed old CT ABD on [facility] from 07/2022 which showed large thick-walled density arising from sigmoid colon contain stool in debris 3.9x3.8cm, may represent a chronic retained diverticular abscess or extremely large diverticulus Stool PCR negative Encourage advanced diet Stop IVF and monitor oral intake Continue zosyn Gen surgery eval noted Patient will continue follow up with Onco outpatient Acute kidney injury Baseline creatinine around 1.1-1.2 Likely prerenal secondary to GI losses Cr:1.9>1.5>1.24 today Will stop IVF and monitor Continue to hold losartan, metformin Avoid nephrotoxic agents as able Metastatic adenocarcinoma of right lung Metastatic Peritoneal carcinomatosis Was on immunotherapy started on 08/20/2023 Disease progression noted on PET scan on 05/25/2024 Currently on sotorasib, started since last week of May 2024 Patient had a PET scan on September 12 2024 which showing "increase in size and metabolic activity of perihilar right upper lobe radiation fibrosis/contagious hilar lymphadenopathy. Decrease in size of multiple active peritoneal implants. Acute sigmoid diverticulitis with contained perforation. Small pericardial effusion". Has appointment with heme-onc coming Thursday as per . CT Scan showed sigmoidal colitis/diverticulitis, gastroenteritis, metastatic disease and peritoneal carcinomatosis. Fluid containing structure 4 cm in the right groin. Sotorasib on hold for now Will discuss with primary oncologist Dr. Zapien for further recommendations DM II HbA1c 6.0 Hold metformin Continue insulin per protocol Monitor blood glucose levels Consider to adjust dose of metformin on discharge due to renal function Hypertension Continue to hold losartan for now Monitor blood pressure Hypothyroidism Continue levothyroxine Moderate aortic regurgitation Monitor for volume overload Anemia of chronic disease Drop in hemoglobin likely dilutional secondary to IV fluids No acute bleeding issues currently Continue iron supplements Monitor CBC DVT Px: Heparin SQ CODE STATUS Full code I spent a total of 55 minutes coordinating, documenting and providing care for this patient excluding time spent in performance of separately billed services Admission and Anticipated Discharge Date Admission Date: September 19, 2024 Subjective Patient seen and examined Reports feeling better today No nausea or vomiting so far today Reports weakness. No abd pain No other new complaints Physical Exam Constitutional: no acute distress Chronic ill looking Eyes: PERRL, conjunctivae normal, anicteric sclerae ENMT: external ear and nose normal, oropharynx normal Respiratory: normal respiratory effort, lungs clear to auscultation Cardiovascular: Rate/Rhythm: regular rate and regular rhythm Gastrointestinal (Abdomen): normal bowel sounds, soft, nontender, no hepatosplenomegaly Musculoskeletal: No pedal edema Neurologic: PERRL, EOMI, accommodation nl, no face palsy, no dysarthria Psychiatric: A+Ox3, euthymic affect Results & Data Results & Data Vital Signs (Past 12 Hours) Vital Signs Temp Pulse Pulse Resp BP Pulse Ox O2 Del Method 09/21/24 08:59 64 09/21/24 07:34 37.1 C 61 18 100/50 L 97 Room Air 09/21/24 03:51 36.8 C 65 18 120/69 96 Room Air 09/21/24 00:13 36.9 C 67 18 108/58 L 96 Room Air 09/20/24 22:48 66 Laboratory Results Abnormal lab results 09/20/24 09/20/24 09/20/24 Range/Units 11:59 18:03 19:52 RBC (4.70-6.10) M/uL Hgb (14.0-18.0) g/dl Hct (42.0-52.0) % MCHC (32.0-36.0) g/dL RDW Std Deviation (36.4-46.3) fL Chloride (98-107) mmol/L BUN (6-23) mg/dl BUN/Creatinine Ratio (10-20) POC Glucose 114 H 114 H 133 H (70-99) mg/dl Calcium (8.6-10.3) mg/dl 09/21/24 Range/Units 06:08 RBC 2.47 L (4.70-6.10) M/uL Hgb 7.1 L (14.0-18.0) g/dl Hct 22.6 L (42.0-52.0) % MCHC 31.4 L (32.0-36.0) g/dL RDW Std Deviation 46.7 H (36.4-46.3) fL Chloride 114 H (98-107) mmol/L BUN 27 H (6-23) mg/dl BUN/Creatinine Ratio 21.8 H (10-20) POC Glucose (70-99) mg/dl Calcium 8.2 L (8.6-10.3) mg/dl Diagnostic Findings CT ABD/PELVIS Masslike wall thickening with irregularity in the sigmoid colon is identified. This could represent colitis and/or diverticulitis however malignancy is a consideration. Multiple heterogeneously enhancing masses with central hypodensity are noted abutting the large bowel as discussed. This could represent malignancies of the colon or peritoneal deposits of tumor. Additional peritoneal deposits are present scattered throughout the abdomen. Overall the findings are consistent with a neoplastic/malignant process and colon cancer with peritoneal carcinomatosis may be a consideration. Metastatic disease is also possible. Recommend clinical correlation with medical history and medical workup up to this point. If necessary, tissue sampling may be considered for histology. Inflammatory changes of the stomach and small bowel loops may additionally suggest gastroenteritis Fluid containing structure measuring 4.0 cm in the right groin. No significant inflammation is present at this site. Electronically signed by Júnior Gordon 09-19-2024 7:37 PM
[2024-09-21 14:39] LABS: Hematocrit (blood only) 27.3 % (42.0-52.0); Hemoglobin 8.6 g/dl (14.0-18.0)
[2024-09-21] MEDS: HEPARIN 100 UNIT/ML 5ML FLUSH FLUSH PRN (21:16)
[2024-09-22 03:54] VITALS: TEMP 97.9
[2024-09-22 06:24] LABS: Hematocrit (blood only) 22.8 % (42.0-52.0); Hemoglobin 7.1 g/dl (14.0-18.0); Mean Corpuscular Hemoglobin 28.3 pg (25.0-34.0); Mean Corpuscular Volume 90.8 fL (80.0-100.0); Platelet Count 240 K/uL (130-400); RDW Standard Deviation 46.7 fL (36.4-46.3); Red Blood Count 2.51 M/uL (4.70-6.10); White Blood Count 5.26 K/ul (4.8-10.8)
[2024-09-22 06:43] LABS: Anion Gap 6.0 (3-11); Blood Urea Nitrogen 20.0 mg/dl (6-23); Calcium 8.2 mg/dl (8.6-10.3); Carbon Dioxide 22.0 mmol/L (21-32); Chloride 110.0 mmol/L (98-107); Creatinine Clr Calc Pharmacy 40.9 ml/min; Glucose 77.0 mg/dl (70-99(Fasting)); Potassium 4.2 mmol/L (3.5-5.1); Sodium 138.0 mmol/L (136-145)
[2024-09-22 08:28] LABS: Hematocrit (blood only) 23.5 % (42.0-52.0); Hemoglobin 7.4 g/dl (14.0-18.0)
--- NOTE | 2024-09-22 11:13 | Discharge Summary ---
Date of Service September 22, 2024 Admission HPI Per Admitting Provider 84-year-old male with past med history significant for type 2 diabetes, hypothyroidism, hyperlipidemia, adenocarcinoma of right lung, moderate aortic regurgitation, hypertension, vitamin B12 deficiency, statin intolerance presents with nausea vomiting and diarrhea. Patient having ongoing diarrhea since last 1 week to 10 days 5-6 times daily. Diarrhea is watery. No blood in the stools. Today he was having nausea and dry heaves and had episode of vomiting. Earlier had abdominal pain that got resolved now. Denies any fevers. No chest pain or shortness of breath. Has cough and brings up white phlegm. Denies any headache. Vision is okay. No runny nose. Appetite is poor. Sometimes have some difficulty to swallowing. On regular food. Ambulates without support but walking slowly. Hemodynamics are okay. Patient had PET scan on 09/12/2024 and has appointment with heme-onc coming Thursday. Past medical history. As mentioned above Past surgical history. Bronchoscopy. Colonoscopy. Right robotic thoracoscopy with lymphadenectomy. Appendectomy. Right shoulder replacement. Thoracotomy major with exploration. Social history. . Quit smoking 1991. Smoked 3 pack a day for 34 years. Alcohol very rarely now. No drug use. Family history. No significant family history on file. Admission Exam Per Admitting Provider General- Not in distress Head- atraumatic Eyes- PERRL. ENT- oropharynx clear Neck- supple, no JVD. Lungs- clear to auscultation no wheezing or crackles Heart- regular rhythm; murmur in aortic area, no gallop. Abdomen- normal bowel sounds, soft, nontender, no distension Extremities- no pretibial edema, no erythema seen Neuro- alert, oriented PERRL, no facial palsy; no dysarthria; moves extremities Principal Diagnosis Colitis/Diverticulitis Discharge Exam Constitutional no acute distress Eyes PERRL, conjunctivae normal, anicteric sclerae ENMT external ear and nose normal, oropharynx normal Respiratory normal respiratory effort, lungs clear to auscultation Cardiovascular Rate/Rhythm: regular rate and regular rhythm Gastrointestinal (Abdomen) normal bowel sounds, soft, nontender, no hepatosplenomegaly Neurologic PERRL, EOMI, accommodation nl, no face palsy, no dysarthria Psychiatric A+Ox3, euthymic affect Discharge Data Allergies Allergy/AdvReac Type Severity Reaction Status Date / Time nafcillin Allergy Intermediate hives Verified 09/19/24 18:13 Consultations 09/19/24 20:13 ED Decision to Admit Stat 09/20/24 08:00 Consult General Surgery Routine Ordered Studies 09/19/24 14:58 CT Abd and Pelvis [CT abd pelvis IV con only] Stat Hospital Course (1) Nausea, vomiting, and diarrhea: 84-year-old male with past med history significant for type 2 diabetes, hypothyroidism, hyperlipidemia, adenocarcinoma of right lung, moderate aortic regurgitation, hypertension, vitamin B12 deficiency, statin intolerance presents with nausea vomiting and diarrhea. Patient having ongoing diarrhea since last 1 week to 10 days 5-6 times daily. Nausea and vomiting may be due to Sotorasib Diverticultis CT ABD this admission suggestive of sigmoidal colitis/diverticulitis, gastroenteritis, metastatic disease and peritoneal carcinomatosis Reviewed old CT ABD on [facility] from 07/2022 which showed large thick-walled density arising from sigmoid colon contain stool in debris 3.9x3.8cm, may represent a chronic retained diverticular abscess or extremely large diverticulum Stool PCR negative Patient seen and examined. He was treated with antibiotics Patient seen and examined today. Reports all symptoms have resolved He was discharged on oral antibiotics (ciprofloxacin and flagyl) to complete treatment Acute kidney injury Baseline creatinine around 1.1-1.2 Likely prerenal secondary to GI losses Cr:1.9>1.5>>1.12 today Metastatic adenocarcinoma of right lung Metastatic Peritoneal carcinomatosis Was on immunotherapy started on 08/20/2023 Disease progression noted on PET scan on 05/25/2024 Currently on sotorasib, started since last week of May 2024 Patient had a PET scan on September 12 2024 which showing "increase in size and metabolic activity of perihilar right upper lobe radiation fibrosis/contagious hilar lymphadenopathy. Decrease in size of multiple active peritoneal implants. Acute sigmoid diverticulitis with contained perforation. Small pericardial effusion". Patient advised to follow up with his Oncologist DM II HbA1c 6.0 Continue home antidiabetics Hypertension BP was low normal throughout his inpatient stay His losartan was stopped for now PCP to monitor Hypothyroidism Continue levothyroxine Anemia of chronic disease Drop in hemoglobin likely dilutional secondary to IV fluids No acute bleeding issues currently Continue iron supplements Hb has been in 7-8 during hospital stay Total Time Total Time Spent Total Time Spent (In Minutes): 35 Total Time Includes: Examination of the Patient, Discharge Planning and Medication Reconciliation Discharge Plan Discharge Items Patient Disposition: Home - Self-Care Reason For Visit: Nausea, vomiting Discharge Diagnosis: Colitis/Diverticulitis Condition on Discharge: Fair Activity: Resume your previous activity Non-emergency contact: Primary Care Provider and Oncologist Call non-emergency contact if: you have any medication questions and your symptoms worsen Follow-up/Referrals: Naif Chen MD [Primary Care Provider] - (Date & Time 09/27/2024 11:00 AM Provider: Naif Chen MD General Internal Medicine [facility] ) Diet: Carb Consistent or DM2 Addtl Attending Provider Instructions: Mr Maza You were evaluated and managed for the above listed diagnoses. You are being discharged on 3 more days of antibiotics to complete treatment. Please STOP Losartan for now due to your blood pressure until you follow up with your Primary Doctor Please ensure follow up with your Primary Doctor and Oncologist It was a pleasure taking care of you Pending Studies at Discharge: No Stand-Alone Forms: [facility] [employer], Smoking Cessation Medications and DC Order Prescriptions: New ciprofloxacin HCl 500 mg tablet 500 mg PO BID 3 Days Qty: 6 0RF metronidazole 500 mg tablet 500 mg PO TID 3 Days Qty: 9 0RF Continued multivit with min-folic acid [Men's Multivitamin Gummies] 200 mcg tablet,chewable 1 tab PO DAILY prochlorperazine maleate [Compazine] 10 mg tablet 10 mg PO QID PRN (Reason: NAUSEA/VOMITING) ondansetron HCl 8 mg tablet 8 mg PO Q8H PRN (Reason: NAUSEA/VOMITING) mecobalamin (vitamin B12) [B12 Active] 1,000 mcg tablet,chewable 5,000 mcg PO DAILY guaifenesin [Mucinex] 1,200 mg tablet extended release 12hr 1,200 mg PO DAILY PRN (Reason: Congestion) levothyroxine 88 mcg tablet 88 mcg PO DAILYBB ferrous sulfate [iron] 325 mg (65 mg iron) Tablet 325 mg PO DAILY metformin 1,000 mg tablet 1,000 mg PO BIDM Lumakras 120 mg tablet 480 mg PO QAM Rx Instructions: TAKES 4 TABS. Discontinued losartan 100 mg tablet 100 mg PO DAILY Discharge Orders: Discharge Order (Routine); Ordered 09/22/24 Ordered By: Nohemy Mitchell/Other Patient Handouts: Managing Type 2 Diabetes Admission Data Admit Date/Time: 09/19/24 21:22 Attending Provider: Nohemy Lin I. Admit Provider: Turner Tolliver Primary Care Provider: Naif Chen Other Providers: Turner Tolliver; Trevin Cohen; Matt Nova Other Interventions: Discharge Summary Assessment (RN) Last Done: 09/22/24 11:42
[2024-09-22 11:21] VITALS: BP 116/58; RESP 20; O2SAT 97
[2024-09-22 11:46] VITALS: PULSE 58
== END 2024-09-22 13:41 | disposition home or self-care (01) | DRG 394 ==
LOC: ED 14:20 → SUATTDRO 21:22 → 2W 21:22

== ENCOUNTER 2024-10-14 17:33 | Inpatient (IN) ==
[2024-10-14] MEDS: CEFEPIME 2000MG 2,000 MG/20 ML SYR IV STA (17:59)
[2024-10-14] MEDS: KETOROLAC TROMETHAMINE 15 MG/ML VIAL IV STA (17:59)
[2024-10-14] MEDS: PLASMA-LYTE A 1,000 ML IV ONE (17:59)
--- NOTE | 2024-10-14 18:17 | Emergency Department Note ---
Impression & Plan Sepsis, Febrile illness, acute ED Provider Note NAME: RAMU THOMASON AGE: 84 SEX: M : 1940 ARRIVES VIA: Walk-In INFORMANT: Patient, ED PROVIDER(S): Valentin Moore DO CHIEF COMPLAINT: fever HPI: This is a 84-year-old male with the PMHx of metastatic lung cancer off of chemotherapy and hypothyroidism presenting to [facility] for further evaluation of fevers and generalized malaise. Patient is accompanied by who provide additional history. Patient reports that he had abnormal blood work yesterday at [facility]. He states he has not felt well over the past 2 years dealing with his metastatic lung cancer. Patient states he has had worsening malaise and weakness over the past few days. Patient did spike a fever at home today. Patient denies any other symptoms at this time. Patient states he has not had chemotherapy for the prior month. Patient states he is no longer proceeding with chemotherapy or radiation. No cough or congestion. Denies chest pain or palpitations. No shortness of breath. They deny abdominal pain, nausea and vomiting. No urinary complaints. No recent changes in bowel movements. Patient denies recent changes in medications or OTC supplements. Patient offers no other complaints, today. ADDITIONAL HISTORY OBTAINED: Per HPI Chronic Medical/Social Conditions Affecting Care: Per HPI PAST MEDICAL HISTORY: See Below PAST SURGICAL HISTORY: See Below FAMILY HISTORY: See Below SOCIAL HISTORY: See Below HOME MEDICATIONS: See Below ALLERGIES: See Below VITALS: See Below PHYSICAL EXAMINATION: GENERAL: Sitting up in bed, alert, well appearing, well nourished, no distress, non-toxic EYE EXAM: normal conjunctiva. PERRL and EOM's grossly intact. OROPHARYNX: no exudate, no erythema, lips, buccal mucosa, and tongue normal and mucous membranes are moist NECK: supple, no nuchal rigidity, no adenopathy, non-tender LUNGS: Clear to auscultation. Normal chest wall mechanics HEART: no murmurs, regular rate, regular rhythm ABDOMEN: abdomen soft, non-tender, normo-active bowel sounds, no masses, no rebound or guarding. BACK: Back is symmetrical on inspection and there is no deformity, no midline tenderness, no CVA tenderness. SKIN: no rashes and no bruising UPPER EXTREMITIES: upper extremities are grossly normal. LOWER EXTREMITIES: No pitting edema. NEURO EXAM: Normal sensorium, cranial nerves II-XII grossly intact, normal speech, no gross weakness of arms, no gross weakness of legs. MEDICAL DECISION MAKING: Differential diagnoses includes but not limited to sepsis, febrile neutropenia, viral URI, pneumonia, bacteremia, UTI, soft tissue infection, cancer related fever, electrolyte derangements, dehydration In summary, this is a 84 year old male who presented with fever. Differential as above. Nursing notes and pertinent past medical records reviewed. Vital signs reviewed and the patient is febrile but otherwise hemodynamically stable. History and presentation revealed ongoing issues with metastatic lung cancer. Off of chemotherapy current with last treatment 1 month ago. Physical examination revealed as above. As a result of my initial evaluation, patient meets SIRS criteria in the setting of malignancy. Patient positive for cancer history now with fever. Heart rate is 119. Given these findings I am concerned for infectious etiology. Plan for sepsis alert and will place the patient on broad-spectrum antibiotics. Plan to collect chest x-ray. No evidence of peritonitis or findings of stress further need of advanced imaging. Will give gentle IV fluid resuscitation as well. Diagnostics interpreted by me include EKG and cardiac monitoring as listed below: -Cardiac Monitoring: An order was placed for continuous cardiac monitoring. The monitor shows a rate of [] with [] rhythm. -ECG: EKG independently interpreted by me normal sinus rhythm at a ventricular of 80. No significant ST segment changes to suggest STEMI. Intervals within normal limits Patient completed laboratory studies and imaging. Results independently interpreted by me are normal lactate. CBC shows mild leukocytosis at 12.91. Patient has stable anemia. No significant kidney dysfunction or electrolyte derangements. The patient was managed with IVFR and abx. Ultimately, the decision was made to admit the patient for sepsis 2/2 unclear source. It was recommended to admit this patient at 1948. I discussed the case with the hospitalist service via [employer] and they are agreeable to admit the patient to their services at [address] Tolliver. Based on the above, including the patient's age, coexisting illnesses, labs, imaging, and exam findings the decision to treat as an inpatient. I discussed the patient with the hospitalist team who recommended admission to their services. They received the medications, treatments, interventions indicated above and their condition []. I discussed my findings with the patient and their family and they understand and agree with the treatment plan. All patient / family questions were answered to their satisfaction. Consults/Care Managements Discussions: Per MDM ER treatment provided: See above Procedures:none Critical Care: None The chart was completed utilizing [employer] Speech voice recognition software. Grammatical errors, random word insertions, pronoun errors, and incomplete sentences are an occasional consequence of this system due to software limitations, ambient noise, and hardware issues. Any formal questions or concerns about the content, text, or information contained within the body of this dictation should be directly addressed to the physician for clarification. Past Med/Surg History Problem List (Updated 10/15/24 @ 15:20 by Valentin Moore DO) Febrile illness, acute (Acute) Sepsis (Acute) Illness Metastatic lung cancer (metastasis from lung to other site) Diverticulitis Generalized weakness (Acute) Acute dehydration (Acute) HEAVEN (acute kidney injury) (Acute) Nausea, vomiting, and diarrhea (Acute) Hypothyroidism Malignant neoplasm of right upper lobe of lung (Chronic) Rotator cuff tear arthropathy of right shoulder Medical History Moderate aortic regurgitation Chronic right shoulder pain Mixed hyperlipidemia Type 2 diabetes mellitus Statin intolerance Vitamin B 12 deficiency Surgical History S/P thoracotomy Robotic right VATS (thoracoscopy) --staging lymphadenectomy Right thoracotomy -- exploration for tumor resectability 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 Status post right foot surgery Hx of appendectomy History of bronchoscopy Family History Mother Cancer Lung cancer Father Cancer Lung cancer Social History Smoking Status: Former smoker Tobacco Type: Cigarettes Age Started Using Tobacco: 17; Age Quit Using Tobacco: 52; packs per day: 2.5; Second Hand Exposure: Yes; Hx Alcohol Use: No Hx Substance Use: No Preferred Language: Ukrainian Communication Ability: Effective Visual Impairment: No Limitations Pharmacy Associate Required: No Beliefs That Will Affect Care: None Current Living Situation: Spouse current occupational status: retired Other Information That Helps Us Care for You: No Feels Safe at Home: Yes Safety Concerns: Feels Safe At This Time Assistive Devices: None Allergies Allergies Allergy/AdvReac Type Severity Reaction Status Date / Time nafcillin Allergy Intermediate hives Verified 10/14/24 18:42 Home Meds Home Medications Medication Instructions Recorded Confirmed multivitamin with minerals-folic 1 tab PO DAILY 06/04/23 10/14/24 acid 200 mcg chewable tablet (Men's Multivitamin Gummies) ondansetron HCl 8 mg tablet 8 mg PO Q8H PRN NAUSEA/VOMITING 06/04/23 10/14/24 prochlorperazine maleate 10 mg 10 mg PO QID PRN NAUSEA/VOMITING 06/04/23 10/14/24 tablet (Compazine) ferrous sulfate 325 mg (65 mg 325 mg PO 3XWK 09/19/24 10/14/24 iron) tablet (iron) levothyroxine 88 mcg tablet 88 mcg PO DAILYBB 09/19/24 10/14/24 metformin 1,000 mg tablet 0 mg PO BIDM 09/19/24 10/14/24 losartan 100 mg tablet 100 mg PO QAM 10/14/24 10/14/24 Results & Data (ED) Vital Signs Vital Signs - 24 hr 10/14/24 17:35 10/14/24 18:20 10/14/24 18:29 Temperature 39.4 C H 37.4 C Temperature Source Oral Oral Pulse Rate 92 H Pulse Rate [Apical] 86 Respiratory Rate 18 20 Respiratory Effort / Characteristics Non-Labored Spontaneous Non-Labored Spontaneous Respiratory Depth Normal Normal Respiratory Pattern Regular Blood Pressure 140/62 Blood Pressure [Right Arm] 157/81 H Blood Pressure Mean 88 Blood Pressure Mean [Right Arm] 106 Blood Pressure Position [Right Arm] Sitting Pulse Oximetry 98 92 93 Oxygen Delivery Method Room Air Room Air Room Air Sepsis Recent Fever Within 48 Hours Yes Sepsis New/Unexplained Change in Mental Status N/A Sepsis Action Taken by Nursing No Action Required 10/14/24 18:43 10/14/24 19:00 10/14/24 19:30 Temperature Temperature Source Pulse Rate 86 Pulse Rate [Apical] 80 86 Respiratory Rate 20 20 Respiratory Effort / Characteristics Respiratory Depth Respiratory Pattern Blood Pressure Blood Pressure [Right Arm] 145/68 H 134/62 Blood Pressure Mean Blood Pressure Mean [Right Arm] 93 86 Blood Pressure Position [Right Arm] Pulse Oximetry 93 91 Oxygen Delivery Method Room Air Room Air Sepsis Recent Fever Within 48 Hours Sepsis New/Unexplained Change in Mental Status Sepsis Action Taken by Nursing 10/14/24 20:00 10/14/24 20:30 Temperature Temperature Source Pulse Rate Pulse Rate [Apical] 85 80 Respiratory Rate 22 24 Respiratory Effort / Characteristics Respiratory Depth Respiratory Pattern Blood Pressure Blood Pressure [Right Arm] 146/66 H 141/64 H Blood Pressure Mean Blood Pressure Mean [Right Arm] 92 89 Blood Pressure Position [Right Arm] Pulse Oximetry 91 92 Oxygen Delivery Method Room Air Room Air Sepsis Recent Fever Within 48 Hours Sepsis New/Unexplained Change in Mental Status Sepsis Action Taken by Nursing Laboratory Data 10/15/24 07:09 10/15/24 05:50 Lab Results 10/14/24 10/14/24 10/14/24 Range/Units 17:55 18:02 18:40 WBC 12.91 H (4.8-10.8) K/ul RBC 2.84 L (4.70-6.10) M/uL Hgb 8.0 L (14.0-18.0) g/dl Hct 25.5 L (42.0-52.0) % MCV 89.8 (80.0-100.0) fL MCH 28.2 (25.0-34.0) pg MCHC 31.4 L (32.0-36.0) g/dL RDW Std Deviation 45.4 (36.4-46.3) fL RDW Coeff of Tye 14.0 (11.5-14.5) % Plt Count 397 (130-400) K/uL MPV 9.6 (9.4-12.4) fL Immature Gran % (Auto) 0.4 % Neut % (Auto) 88.2 % Lymph % (Auto) 4.6 % [place] % (Auto) 5.9 % Eos % (Auto) 0.5 % Baso % (Auto) 0.4 % Neut # (Auto) 11.40 H (1.40-6.50) K/uL Lymph # (Auto) 0.59 L (1.20-3.40) K/uL [place] # (Auto) 0.76 H (0.11-0.59) K/uL Eos # (Auto) 0.06 (0.00-0.50) K/uL Baso # (Auto) 0.05 (0.00-0.20) K/uL Immature Gran # (Auto) 0.05 (0.01-0.20) K/uL VBG pH 7.43 H (7.36-7.41) VBG pCO2 40 (38-50) mmHg VBG pO2 43 mmHg VBG HCO3 27 mmol/L VBG O2 Saturation 69.4 % VBG Base Excess 2.0 mEq/L Sodium 137 (136-145) mmol/L Potassium 3.7 (3.5-5.1) mmol/L Chloride 101 (98-107) mmol/L Carbon Dioxide 28 (21-32) mmol/L Anion Gap 8 (3-11) BUN 13 (6-23) mg/dl Creatinine 0.92 (0.6-1.4) mg/dl Est Cr Clr Drug Dosing Not Reportable eGFR 83.05 BUN/Creatinine Ratio 14.1 (10-20) Glucose 141 H (70-99(Fasting)) mg/dl Lactate 1.1 (0.4-2.0) mmol/L Calcium 8.4 L (8.6-10.3) mg/dl Magnesium 1.7 (1.7-2.4) mg/dl Total Bilirubin 0.5 (0.2-1.0) mg/dl Direct Bilirubin 0.2 (0-0.2) mg/dl AST 11 L (13-39) U/L ALT 5 L (7-52) U/L Alkaline Phosphatase 119 H (34-104) U/L Troponin I High Sens 6.8 (0-20) pg/ml Total Protein 6.8 (6.0-8.3) gm/dl Albumin 3.4 (3.4-5.0) gm/dl Procalcitonin 0.31 (0-0.5) ng/ml Urine Color Urine Appearance (Clear) Urine pH (4.5-7.5) Ur Specific [place] (1.000-1.030) Urine Protein (Negative) Urine Glucose (UA) (Negative) Urine Ketones (Negative) Urine Blood (Negative) Urine Nitrite (Negative) Urine Bilirubin (Negative) Urine Urobilinogen (Negative) Ur Leukocyte Esterase (Negative) Urine WBC (Auto) (0-5) /hpf Urine RBC (Auto) (0-2) /hpf U Hyaline Cast (Auto) (0-2) /lpf U Epithel Cells (Auto) (0-2) /hpf Urine Bacteria (Auto) (None Seen) Urine Comment Adenovirus (PCR) Not Detected (NotDetected) B. pertussis DNA (PCR) Not Detected (NotDetected) B.parapertussis DNA PCR Not Detected (NotDetected) C. pneumoniae DNA (PCR) Not Detected (NotDetected) Coronavirus OC43 (PCR) Not Detected (NotDetected) Coronavirus HKU1 (PCR) Not Detected (NotDetected) Coronavirus 229E (PCR) Not Detected (NotDetected) SARS-CoV-2 (PCR) Not Detected (NotDetected) Coronavirus NL63 (PCR) Not Detected (NotDetected) Human Metapneumovir PCR Not Detected (NotDetected) Influenza Type A (PCR) Not Detected (NotDetected) Influenza Type B (PCR) Not Detected (NotDetected) M. pneumoniae (PCR) Not Detected (NotDetected) Parainfluenza 1 (PCR) Not Detected (NotDetected) Parainfluenza 2 (PCR) Not Detected (NotDetected) Parainfluenza 3 (PCR) Not Detected (NotDetected) Parainfluenza 4 (PCR) Not Detected (NotDetected) RSV (PCR) Not Detected (NotDetected) Entero/Rhino (PCR) Not Detected (NotDetected) 10/14/24 Range/Units 20:10 WBC (4.8-10.8) K/ul RBC (4.70-6.10) M/uL Hgb (14.0-18.0) g/dl Hct (42.0-52.0) % MCV (80.0-100.0) fL MCH (25.0-34.0) pg MCHC (32.0-36.0) g/dL RDW Std Deviation (36.4-46.3) fL RDW Coeff of Tye (11.5-14.5) % Plt Count (130-400) K/uL MPV (9.4-12.4) fL Immature Gran % (Auto) % Neut % (Auto) % Lymph % (Auto) % [place] % (Auto) % Eos % (Auto) % Baso % (Auto) % Neut # (Auto) (1.40-6.50) K/uL Lymph # (Auto) (1.20-3.40) K/uL [place] # (Auto) (0.11-0.59) K/uL Eos # (Auto) (0.00-0.50) K/uL Baso # (Auto) (0.00-0.20) K/uL Immature Gran # (Auto) (0.01-0.20) K/uL VBG pH (7.36-7.41) VBG pCO2 (38-50) mmHg VBG pO2 mmHg VBG HCO3 mmol/L VBG O2 Saturation % VBG Base Excess mEq/L Sodium (136-145) mmol/L Potassium (3.5-5.1) mmol/L Chloride (98-107) mmol/L Carbon Dioxide (21-32) mmol/L Anion Gap (3-11) BUN (6-23) mg/dl Creatinine (0.6-1.4) mg/dl Est Cr Clr Drug Dosing eGFR BUN/Creatinine Ratio (10-20) Glucose (70-99(Fasting)) mg/dl Lactate (0.4-2.0) mmol/L Calcium (8.6-10.3) mg/dl Magnesium (1.7-2.4) mg/dl Total Bilirubin (0.2-1.0) mg/dl Direct Bilirubin (0-0.2) mg/dl AST (13-39) U/L ALT (7-52) U/L Alkaline Phosphatase (34-104) U/L Troponin I High Sens (0-20) pg/ml Total Protein (6.0-8.3) gm/dl Albumin (3.4-5.0) gm/dl Procalcitonin (0-0.5) ng/ml Urine Color Yellow Urine Appearance Clear (Clear) Urine pH 5.5 (4.5-7.5) Ur Specific [place] 1.020 (1.000-1.030) Urine Protein Trace H (Negative) Urine Glucose (UA) Negative (Negative) Urine Ketones Trace H (Negative) Urine Blood Negative (Negative) Urine Nitrite Negative (Negative) Urine Bilirubin Negative (Negative) Urine Urobilinogen Negative (Negative) Ur Leukocyte Esterase Negative (Negative) Urine WBC (Auto) 0-5 (0-5) /hpf Urine RBC (Auto) 0-2 (0-2) /hpf U Hyaline Cast (Auto) 3-5 H (0-2) /lpf U Epithel Cells (Auto) 0-2 (0-2) /hpf Urine Bacteria (Auto) None Seen (None Seen) Urine Comment Adenovirus (PCR) (NotDetected) B. pertussis DNA (PCR) (NotDetected) B.parapertussis DNA PCR (NotDetected) C. pneumoniae DNA (PCR) (NotDetected) Coronavirus OC43 (PCR) (NotDetected) Coronavirus HKU1 (PCR) (NotDetected) Coronavirus 229E (PCR) (NotDetected) SARS-CoV-2 (PCR) (NotDetected) Coronavirus NL63 (PCR) (NotDetected) Human Metapneumovir PCR (NotDetected) Influenza Type A (PCR) (NotDetected) Influenza Type B (PCR) (NotDetected) M. pneumoniae (PCR) (NotDetected) Parainfluenza 1 (PCR) (NotDetected) Parainfluenza 2 (PCR) (NotDetected) Parainfluenza 3 (PCR) (NotDetected) Parainfluenza 4 (PCR) (NotDetected) RSV (PCR) (NotDetected) Entero/Rhino (PCR) (NotDetected) Administered Medications Meropenem 500 mg/ Syringe 10 mls @ 2 mls/min IV Q6 LIZY; Protocol Stop: 10/16/24 23:14 Last Admin: 10/15/24 14:49 Dose: 2 mls/min Documented By: Admin: 10/15/24 05:54 Dose: 2 mls/min Documented By: Admin: 10/14/24 23:42 Dose: 2 mls/min Documented By: RONNI Lactated Ringer's (Lr) 1,000 mls @ 80 mls/hr IV .[id number] LIZY Stop: 10/16/24 14:59 Last Admin: 10/15/24 14:49 Dose: 80 mls/hr Documented By: DANIELLE Insulin Aspart (Insulin Aspart Per Unit Charge) 0 units SC Q6 LIZY Stop: 11/14/24 05:59 Last Admin: 10/15/24 11:54 Dose: Not Given Documented By: Admin: 10/15/24 06:01 Dose: Not Given Documented By: RONNI Lactobacillus Acidophilus (Lactobacillus Acidophilus 1 Gm Pack) 1 packet PO TIDM LIZY Stop: 11/14/24 07:59 Last Admin: 10/15/24 14:49 Dose: 1 packet Documented By: Admin: 10/15/24 08:32 Dose: 1 packet Documented By: DANIELLE Levothyroxine Sodium (Levothyroxine Sodium 88 Mcg Tablet) 88 mcg PO DAILYBB LIZY Stop: 11/14/24 06:29 Last Admin: 10/15/24 05:54 Dose: 88 mcg Documented By: RONNI Losartan Potassium (Losartan Potassium 50 Mg Tab) 100 mg PO QAM LIZY Stop: 11/14/24 08:59 Last Admin: 10/15/24 08:32 Dose: 100 mg Documented By: DANIELLE Multivitamins/Minerals (Cerovite Adv Formula Tab) 1 tab PO DAILY LIZY Stop: 11/14/24 08:59 Last Admin: 10/15/24 08:32 Dose: 1 tab Documented By: DANIELLE Discontinued Medications Enoxaparin Sodium (Enoxaparin Inj 40 Mg/0.4 Ml Syr) 40 mg SQ HS LIZY Stop: 11/13/24 23:14 Last Admin: 10/14/24 23:42 Dose: 40 mg Documented By: RONNI Cefepime HCl (Maxipime 2000mg) 2,000 mg in 20 mls @ 5 mls/min IV NOW STA; Protocol Stop: 10/14/24 17:50 Last Admin: 10/14/24 17:59 Dose: 5 mls/min Documented By: POWER Parenteral Electrolytes (Plasma-Lyte A Ph 7.4) 1,000 mls @ 999 mls/hr IV .[id number] ONE Stop: 10/14/24 18:47 Last Infusion: 10/14/24 19:43 Dose: Infused Documented By: Admin: 10/14/24 17:59 Dose: 999 mls/hr Documented By: POWER Sodium Chloride (Nss) 1,000 mls @ 80 mls/hr IV .[id number] LIZY Stop: 10/15/24 11:36 Last Infusion: 10/15/24 10:56 Dose: Infused Documented By: Admin: 10/14/24 23:42 Dose: 80 mls/hr Documented By: RONNI Vancomycin HCl 1,250 mg/ (Sodium Chloride) 275 mls @ 200 mls/hr IV ONE ONE; Protocol Stop: 10/15/24 00:52 Last Infusion: 10/15/24 01:36 Dose: Infused Documented By: Admin: 10/14/24 23:42 Dose: 200 mls/hr Documented By: RONNI Vancomycin HCl 1,250 mg/ (Sodium Chloride) 275 mls @ 200 mls/hr IV Q24H LIZY Stop: 10/17/24 05:59 Last Infusion: 10/15/24 07:22 Dose: Infused Documented By: Admin: 10/15/24 05:54 Dose: 200 mls/hr Documented By: RONNI Insulin Aspart (Insulin Aspart Per Unit Charge) 0 units SC ACHS LIZY Stop: 11/13/24 23:06 Last Admin: 10/14/24 23:39 Dose: Not Given Documented By: RONNI Ketorolac Tromethamine (Ketorolac Tromethamine 15 Mg/Ml Vial) 15 mg IV NOW STA Stop: 10/14/24 17:48 Last Admin: 10/14/24 17:59 Dose: 15 mg Documented By: POWER Imaging Data Radiologist's Impression: Chest X-Ray 10/14/24 17:47 EXAM: XR chest 1V portable CLINICAL HISTORY: Sepsis. TECHNIQUE: An X-ray image of the chest is obtained in AP projection. COMPARISON: 09/19/2024 CR chest FINDINGS: Pulmonary Parenchyma: Ashley cath is seen in place with its tip at the cavoatrial junction. No definite pneumothorax. Stable appearance of right hilar mass with surrounding interstitial thickening. A few atelectatic bands are seen in the right lower zone. Relatively reduced right lung volume. A faint nodule in the left lower zone, likely a nipple shadow. Bilateral costophrenic angle is clear with no definitive evidence of pleural thickening or effusions. Heart and Mediastinum: Heart size and shape are normal. No mediastinal widening or masses. No hilar or mediastinal lymphadenopathy. Bony Thorax: Bony thorax appears intact without fractures or deformities. Right reverse shoulder replacement. Soft Tissues: Soft tissues overlying the chest wall are unremarkable. IMPRESSION: 1. AI image is provided that shows a small pneumothorax with high probability in the right apical region; however, in my humble opinion less likly a chance of a clinically significant pneumothorax or no pneumothorax. For the safety of the patient, advised to perform decubitus view or CT chest for further evalution. 2. Right hilar mass and interstitial changes in the right lung, with lower zone atelectatic changes appears stable. 3. Interval resolution of right-sided pleural effusions. 4. Ahsley-cath is seen in place and appropriately positioned. Electronically signed by Matt Marshall 10-14-2024 8:11 PM Discharge Plan Visit Data Chief Complaint: Illness Stated Complaint: CANCER PATIENT CHILLS FEVER ED Provider: Valentin Moore Discharge Problem: Sepsis, Febrile illness, acute Patient Disposition: Admitted As Inpatient Condition: Fair Discharge Instructions Interventions: ED Discharge Assessment Last Done: 10/14/24 22:31
[2024-10-14 18:18] LABS: Hematocrit (blood only) 25.5 % (42.0-52.0); Hemoglobin 8.0 g/dl (14.0-18.0); Immature Granulocytes # (auto) 0.05 K/uL (0.01-0.20); Immature Granulocytes % (auto) 0.4 %; Mean Corpuscular Hemoglobin 28.2 pg (25.0-34.0); Mean Corpuscular Volume 89.8 fL (80.0-100.0); Platelet Count 397 K/uL (130-400); RDW Standard Deviation 45.4 fL (36.4-46.3); Red Blood Count 2.84 M/uL (4.70-6.10); White Blood Count 12.91 K/ul (4.8-10.8)
[2024-10-14 18:36] LABS: Alanine Aminotransferase 5 U/L (7-52); Alkaline Phosphatase 119 U/L (34-104); Anion Gap 8 (3-11); Bilirubin,Total 0.5 mg/dl (0.2-1.0); Blood Urea Nitrogen 13 mg/dl (6-23); Calcium 8.4 mg/dl (8.6-10.3); Carbon Dioxide 28 mmol/L (21-32); Chloride 101 mmol/L (98-107); Glucose 141 mg/dl (70-99(Fasting)); Magnesium 1.7 mg/dl (1.7-2.4); Potassium 3.7 mmol/L (3.5-5.1); Sodium 137 mmol/L (136-145); Total Protein 6.8 gm/dl (6.0-8.3)
[2024-10-14 18:53] LABS: Base Excess VBG 2.0 mEq/L; HCO3 VBG 27 mmol/L; Oxygen Saturation VBG 69.4 %; PCO2 VBG 40 mmHg (38-50); PO2 VBG 43 mmHg; pH VBG 7.43 (7.36-7.41)
[2024-10-14 19:17] LABS: Chlamydia pneumoniae PCR Not Detected (NotDetected); Coronavirus 229E PCR Not Detected (NotDetected); Coronavirus CoV-2 (COVID19)PCR Not Detected (NotDetected); Coronavirus HKU1 PCR Not Detected (NotDetected); Coronavirus NL63 PCR Not Detected (NotDetected); Coronavirus OC43PCR Not Detected (NotDetected); Human Metapneumovirus PCR Not Detected (NotDetected); Parainfluenza Virus 1 PCR Not Detected (NotDetected); Parainfluenza Virus 2 PCR Not Detected (NotDetected); Parainfluenza Virus 3 PCR Not Detected (NotDetected); Parainfluenza Virus 4 PCR Not Detected (NotDetected); Respiratory Syncytial VirusPCR Not Detected (NotDetected); Rhinovirus/Enterovirus PCR Not Detected (NotDetected)
--- NOTE | 2024-10-14 20:12 | XRay Report ---
EXAM: XR chest 1V portable CLINICAL HISTORY: Sepsis. TECHNIQUE: An X-ray image of the chest is obtained in AP projection. COMPARISON: 09/19/2024 CR chest FINDINGS: Pulmonary Parenchyma: Ashley cath is seen in place with its tip at the cavoatrial junction. No definite pneumothorax. Stable appearance of right hilar mass with surrounding interstitial thickening. A few atelectatic bands are seen in the right lower zone. Relatively reduced right lung volume. A faint nodule in the left lower zone, likely a nipple shadow. Bilateral costophrenic angle is clear with no definitive evidence of pleural thickening or effusions. Heart and Mediastinum: Heart size and shape are normal. No mediastinal widening or masses. No hilar or mediastinal lymphadenopathy. Bony Thorax: Bony thorax appears intact without fractures or deformities. Right reverse shoulder replacement. Soft Tissues: Soft tissues overlying the chest wall are unremarkable. IMPRESSION: 1. AI image is provided that shows a small pneumothorax with high probability in the right apical region; however, in my humble opinion less likly a chance of a clinically significant pneumothorax or no pneumothorax. For the safety of the patient, advised to perform decubitus view or CT chest for further evalution. 2. Right hilar mass and interstitial changes in the right lung, with lower zone atelectatic changes appears stable. 3. Interval resolution of right-sided pleural effusions. 4. Ashley-cath is seen in place and appropriately positioned. Electronically signed by Matt Marshall 10-14-2024 8:11 PM
[2024-10-14 20:36] LABS: Appearance Urine Clear (Clear); Bacteria Urine Automated None Seen (None Seen); Epithelial Cell Urine Auto 0-2 /hpf (0-2); Glucose Urine UA Negative (Negative); RBC Urine Automated 0-2 /hpf (0-2); WBC Urine Automated 0-5 /hpf (0-5)
[2024-10-14] MEDS ORDERED: GLUCAGON FOR INJ 1 MG VIAL SQ PRN (23:07)
[2024-10-14] MEDS ORDERED: GLUCOSE 10 TAB/TUBE PO PRN (23:07)
[2024-10-14] MEDS ORDERED: CARBOHYDRATES FOR HYPOGLYCEMIA PO PRN (23:07)
[2024-10-14] MEDS ORDERED: NITROGLYCERIN SL 0.4 MG/TAB TAB SL PRN (23:07)
[2024-10-14] MEDS ORDERED: VANCOMYCIN CONSULT ACTIVE PRN (23:07)
[2024-10-14] MEDS ORDERED: GLUCOSE 40% GEL 15 GM TUBE PO PRN (23:07)
[2024-10-14] MEDS ORDERED: ACETAMINOPHEN 325 MG TAB PO PRN (23:07)
[2024-10-14] MEDS ORDERED: Patient's HEIGHT &/or WEIGHT Needed STA (23:10)
--- NOTE | 2024-10-14 23:15 | History & Physical Report ---
Date of Service October 14, 2024 Assessment & Plan (1) Illness: Plan: 84-year-old male with past medical history significant for type 2 diabetes, hypothyroidism, mixed hyperlipidemia, moderate aortic regurgitation, hypertension, vitamin B12 deficiency, right upper lobe non-small lung cancer presents with fevers and chills. Patient states recent outpatient showed anemia. Per [facility] hemoglobin was 7.4 on 10/12 and 8 on 10/13. And today he was having fever and chills not feeling well and came to the ER. Denies any headache. No neck pain. No chest pain. No abdominal pain. No back pain. No pain in the legs. Has chronic cough brings up phlegm. No nausea or vomiting. No diarrhea or constipation. Denies any blood in stools or black stools. Denies any hematuria or burning micturition. No shortness of breath. No runny nose or sore throat. Ambulates without support. Appetite is poor but lately eating somewhat better as per . Hemodynamics are okay. Saturating okay on room air. Illness Presented with fever and chills WBC 12 VBG okay Procalcitonin 0.3 UA negative Respiratory BioFire negative Chest x-ray questionable small pneumothorax in right apical region. Right hilar mass stable. Blood cultures ordered in the ER Received cefepime in the ER Will continue with meropenem and Vanco for now as patient has allergies to penicillin Will follow CT chest. Patient recently had diverticulitis. Will follow CT abdomen pelvis Monitor in the med/tele Diabetes Hold metformin Sliding scale Close monitor Lower extremity edema Will follow Doppler Patient has history of moderate aortic regurgitation Will monitor for volume overload Hypertension On losartan Will monitor Hypothyroidism On Synthyroid Anemia of chronic disease Hemoglobin 8 Seems around baseline Continue home iron supplements Will follow iron studies, vitamin B12 and folate levels Follow repeat labs Adenocarcinoma right lung Right upper lobe non-small cell lung cancer Mediastinal hilar lymph node involvement immunotherapy was started on 08/20/2023 Disease progression on PET/CT scan done on 05/25/2024 Was started on sotorasib on last week of May 2024. Because of abdominal weight LFTs it was on hold for 3 weeks then resumed lower dose but patient was admitted in the hospital in August 2024 for diverticulitis since then is on hold Saw heme-onc yesterday and current plan is to observe and to see back in the clinic in about 3 weeks and to consider Alimta and carboplatin if the patient clinical condition improves DVT prophylaxis Lovenox. Monitor hemoglobin Disposition Med/telemetry Full code. Addendum: Ct abd/pelvis showing perforated diverticular abscess. Surgery consulted. Conservative management for now and monitor. History of Present Illness Chief Complaint: Illness Primary Care Provider: Naif Chen MD 84-year-old male with past medical history significant for type 2 diabetes, hypothyroidism, mixed hyperlipidemia, moderate aortic regurgitation, hypertension, vitamin B12 deficiency, right upper lobe non-small lung cancer presents with fevers and chills. Patient states recent outpatient showed anemia. Per [facility] hemoglobin was 7.4 on 10/12 and 8 on 10/13. And today he was having fever and chills not feeling well and came to the ER. Denies any headache. No neck pain. No chest pain. No abdominal pain. No back pain. No pain in the legs. Has chronic cough brings up phlegm. No nausea or vomiting. No diarrhea or constipation. Denies any blood in stools or black stools. Denies any hematuria or burning micturition. No shortness of breath. No runny nose or sore throat. Ambulates without support. Appetite is poor but lately eating somewhat better as per . Hemodynamics are okay. Saturating okay on room air. Past medical history. As mentioned above Past surgical history. Bronchoscopy with colonoscopy. Robotic thoracoscopy with lymphadenectomy. Thoracotomy with exploration. Right shoulder replacement. Appendectomy. Social history. . Quit smoking 1981.. Smoked 3 pack a day for 34 years. Alcohol rarely now. No drug use. Family history. No family history on file. Allergies Allergy/AdvReac Type Severity Reaction Status Date / Time nafcillin Allergy Intermediate hives Verified 10/14/24 18:42 Home Medications Medication Instructions Recorded Confirmed Type multivitamin with minerals-folic 1 tab PO DAILY 06/04/23 10/14/24 History acid 200 mcg chewable tablet (Men's Multivitamin Gummies) ondansetron HCl 8 mg tablet 8 mg PO Q8H PRN NAUSEA/VOMITING 06/04/23 10/14/24 History prochlorperazine maleate 10 mg 10 mg PO QID PRN NAUSEA/VOMITING 06/04/23 10/14/24 History tablet (Compazine) ferrous sulfate 325 mg (65 mg 325 mg PO 3XWK 09/19/24 10/14/24 History iron) tablet (iron) levothyroxine 88 mcg tablet 88 mcg PO DAILYBB 09/19/24 10/14/24 History metformin 1,000 mg tablet 0 mg PO BIDM 09/19/24 10/14/24 History losartan 100 mg tablet 100 mg PO QAM 10/14/24 10/14/24 History Past Med/Surg History Problem List Illness Metastatic lung cancer (metastasis from lung to other site) Diverticulitis Generalized weakness (Acute) Acute dehydration (Acute) HEAVEN (acute kidney injury) (Acute) Nausea, vomiting, and diarrhea (Acute) Hypothyroidism Malignant neoplasm of right upper lobe of lung (Chronic) Rotator cuff tear arthropathy of right shoulder Medical History Moderate aortic regurgitation Chronic right shoulder pain Mixed hyperlipidemia Type 2 diabetes mellitus Statin intolerance Vitamin B 12 deficiency Surgical History S/P thoracotomy Robotic right VATS (thoracoscopy) --staging lymphadenectomy Right thoracotomy -- exploration for tumor resectability 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 Status post right foot surgery Hx of appendectomy History of bronchoscopy Family History Mother Cancer Lung cancer Father Cancer Lung cancer Social History Smoking Status: Former smoker Tobacco Type: Cigarettes Age Started Using Tobacco: 17; Age Quit Using Tobacco: 52; packs per day: 2.5; Second Hand Exposure: Yes; Hx Alcohol Use: No Hx Substance Use: No Preferred Language: Arabic Communication Ability: Effective Visual Impairment: No Limitations Detail Sergeant Required: No Beliefs That Will Affect Care: None Current Living Situation: Spouse current occupational status: retired Other Information That Helps Us Care for You: No Feels Safe at Home: Yes Safety Concerns: Feels Safe At This Time Assistive Devices: Glasses and Hearing Aid - Bilateral Review of Systems Review of Systems: All systems reviewed & are unremarkable except as noted in HPI & below Physical Exam Physical Exam: General- Not in distress. Head- atraumatic Eyes- PERRL. ENT- oropharynx clear Neck- supple, no JVD. Lungs- clear to auscultation no wheezing or crackles Heart- regular rhythm; no murmur, no gallop. Abdomen- normal bowel sounds, soft, nontender, no distension Extremities- b/l lower extremity edema present, no erythema seen. Neuro- alert, oriented PERRL, no facial palsy; no dysarthria; moves extremities Results & Data Results & Data Vital Signs (Past 12 Hours) Vital Signs Temp Pulse Pulse Resp BP BP Pulse Ox 10/14/24 20:30 80 24 141/64 H 92 10/14/24 20:00 85 22 146/66 H 91 10/14/24 19:30 86 20 134/62 91 10/14/24 19:00 80 20 145/68 H 93 10/14/24 18:43 86 10/14/24 18:29 37.4 C 86 20 157/81 H 93 10/14/24 18:20 92 10/14/24 17:35 39.4 C H 92 H 18 140/62 98 O2 Del Method 10/14/24 20:30 Room Air 10/14/24 20:00 Room Air 10/14/24 19:30 Room Air 10/14/24 19:00 Room Air 10/14/24 18:43 10/14/24 18:29 Room Air 10/14/24 18:20 Room Air 10/14/24 17:35 Room Air Diagnostic Findings Laboratory Results WBC 12.91 K/ul (4.8-10.8) H 10/14/24 17:55 RBC 2.84 M/uL (4.70-6.10) L 10/14/24 17:55 Hgb 8.0 g/dl (14.0-18.0) L 10/14/24 17:55 Hct 25.5 % (42.0-52.0) L 10/14/24 17:55 MCV 89.8 fL (80.0-100.0) 10/14/24 17:55 MCH 28.2 pg (25.0-34.0) 10/14/24 17:55 MCHC 31.4 g/dL (32.0-36.0) L 10/14/24 17:55 RDW Std Deviation 45.4 fL (36.4-46.3) 10/14/24 17:55 RDW Coeff of Tye 14.0 % (11.5-14.5) 10/14/24 17:55 Plt Count 397 K/uL (130-400) 10/14/24 17:55 MPV 9.6 fL (9.4-12.4) 10/14/24 17:55 Immature Gran % (Auto) 0.4 % 10/14/24 17:55 Neut % (Auto) 88.2 % 10/14/24 17:55 Lymph % (Auto) 4.6 % 10/14/24 17:55 [place] % (Auto) 5.9 % 10/14/24 17:55 Eos % (Auto) 0.5 % 10/14/24 17:55 Baso % (Auto) 0.4 % 10/14/24 17:55 Neut # (Auto) 11.40 K/uL (1.40-6.50) H 10/14/24 17:55 Lymph # (Auto) 0.59 K/uL (1.20-3.40) L 10/14/24 17:55 [place] # (Auto) 0.76 K/uL (0.11-0.59) H 10/14/24 17:55 Eos # (Auto) 0.06 K/uL (0.00-0.50) 10/14/24 17:55 Baso # (Auto) 0.05 K/uL (0.00-0.20) 10/14/24 17:55 Immature Gran # (Auto) 0.05 K/uL (0.01-0.20) 10/14/24 17:55 VBG pH 7.43 (7.36-7.41) H 10/14/24 18:40 VBG pCO2 40 mmHg (38-50) 10/14/24 18:40 VBG pO2 43 mmHg 10/14/24 18:40 VBG HCO3 27 mmol/L 10/14/24 18:40 VBG O2 Saturation 69.4 % 10/14/24 18:40 VBG Base Excess 2.0 mEq/L 10/14/24 18:40 Sodium 137 mmol/L (136-145) 10/14/24 17:55 Potassium 3.7 mmol/L (3.5-5.1) 10/14/24 17:55 Chloride 101 mmol/L (98-107) 10/14/24 17:55 Carbon Dioxide 28 mmol/L (21-32) 10/14/24 17:55 Anion Gap 8 (3-11) 10/14/24 17:55 BUN 13 mg/dl (6-23) 10/14/24 17:55 Creatinine 0.92 mg/dl (0.6-1.4) 10/14/24 17:55 Est Cr Clr Drug Dosing Not Reportable 10/14/24 17:55 eGFR 83.05 10/14/24 17:55 BUN/Creatinine Ratio 14.1 (10-20) 10/14/24 17:55 Glucose 141 mg/dl (70-99(Fasting)) H 10/14/24 17:55 Lactate 1.1 mmol/L (0.4-2.0) 10/14/24 17:55 Calcium 8.4 mg/dl (8.6-10.3) L 10/14/24 17:55 Magnesium 1.7 mg/dl (1.7-2.4) 10/14/24 17:55 Total Bilirubin 0.5 mg/dl (0.2-1.0) 10/14/24 17:55 Direct Bilirubin 0.2 mg/dl (0-0.2) 10/14/24 17:55 AST 11 U/L (13-39) L 10/14/24 17:55 ALT 5 U/L (7-52) L 10/14/24 17:55 Alkaline Phosphatase 119 U/L (34-104) H 10/14/24 17:55 Troponin I High Sens 6.8 pg/ml (0-20) 10/14/24 17:55 Total Protein 6.8 gm/dl (6.0-8.3) 10/14/24 17:55 Albumin 3.4 gm/dl (3.4-5.0) 10/14/24 17:55 Procalcitonin 0.31 ng/ml (0-0.5) 10/14/24 17:55 Urine Color Yellow 10/14/24 20:10 Urine Appearance Clear (Clear) 10/14/24 20:10 Urine pH 5.5 (4.5-7.5) 10/14/24 20:10 Ur Specific [place] 1.020 (1.000-1.030) 10/14/24 20:10 Urine Protein Trace (Negative) H 10/14/24 20:10 Urine Glucose (UA) Negative (Negative) 10/14/24 20:10 Urine Ketones Trace (Negative) H 10/14/24 20:10 Urine Blood Negative (Negative) 10/14/24 20:10 Urine Nitrite Negative (Negative) 10/14/24 20:10 Urine Bilirubin Negative (Negative) 10/14/24 20:10 Urine Urobilinogen Negative (Negative) 10/14/24 20:10 Ur Leukocyte Esterase Negative (Negative) 10/14/24 20:10 Urine WBC (Auto) 0-5 /hpf (0-5) 10/14/24 20:10 Urine RBC (Auto) 0-2 /hpf (0-2) 10/14/24 20:10 U Hyaline Cast (Auto) 3-5 /lpf (0-2) H 10/14/24 20:10 U Epithel Cells (Auto) 0-2 /hpf (0-2) 10/14/24 20:10 Urine Bacteria (Auto) None Seen (None Seen) 10/14/24 20:10 Urine Comment 10/14/24 20:10 Adenovirus (PCR) Not Detected (NotDetected) 10/14/24 18:02 B. pertussis DNA (PCR) Not Detected (NotDetected) 10/14/24 18:02 B.parapertussis DNA PCR Not Detected (NotDetected) 10/14/24 18:02 C. pneumoniae DNA (PCR) Not Detected (NotDetected) 10/14/24 18:02 Coronavirus OC43 (PCR) Not Detected (NotDetected) 10/14/24 18:02 Coronavirus HKU1 (PCR) Not Detected (NotDetected) 10/14/24 18:02 Coronavirus 229E (PCR) Not Detected (NotDetected) 10/14/24 18:02 SARS-CoV-2 (PCR) Not Detected (NotDetected) 10/14/24 18:02 Coronavirus NL63 (PCR) Not Detected (NotDetected) 10/14/24 18:02 Human Metapneumovir PCR Not Detected (NotDetected) 10/14/24 18:02 Influenza Type A (PCR) Not Detected (NotDetected) 10/14/24 18:02 Influenza Type B (PCR) Not Detected (NotDetected) 10/14/24 18:02 M. pneumoniae (PCR) Not Detected (NotDetected) 10/14/24 18:02 Parainfluenza 1 (PCR) Not Detected (NotDetected) 10/14/24 18:02 Parainfluenza 2 (PCR) Not Detected (NotDetected) 10/14/24 18:02 Parainfluenza 3 (PCR) Not Detected (NotDetected) 10/14/24 18:02 Parainfluenza 4 (PCR) Not Detected (NotDetected) 10/14/24 18:02 RSV (PCR) Not Detected (NotDetected) 10/14/24 18:02 Entero/Rhino (PCR) Not Detected (NotDetected) 10/14/24 18:02 Impressions Chest X-Ray 10/14/24 17:47 EXAM: XR chest 1V portable CLINICAL HISTORY: Sepsis. TECHNIQUE: An X-ray image of the chest is obtained in AP projection. COMPARISON: 09/19/2024 CR chest FINDINGS: Pulmonary Parenchyma: Ashley cath is seen in place with its tip at the cavoatrial junction. No definite pneumothorax. Stable appearance of right hilar mass with surrounding interstitial thickening. A few atelectatic bands are seen in the right lower zone. Relatively reduced right lung volume. A faint nodule in the left lower zone, likely a nipple shadow. Bilateral costophrenic angle is clear with no definitive evidence of pleural thickening or effusions. Heart and Mediastinum: Heart size and shape are normal. No mediastinal widening or masses. No hilar or mediastinal lymphadenopathy. Bony Thorax: Bony thorax appears intact without fractures or deformities. Right reverse shoulder replacement. Soft Tissues: Soft tissues overlying the chest wall are unremarkable. IMPRESSION: 1. AI image is provided that shows a small pneumothorax with high probability in the right apical region; however, in my humble opinion less likly a chance of a clinically significant pneumothorax or no pneumothorax. For the safety of the patient, advised to perform decubitus view or CT chest for further evalution. 2. Right hilar mass and interstitial changes in the right lung, with lower zone atelectatic changes appears stable. 3. Interval resolution of right-sided pleural effusions. 4. Ashley-cath is seen in place and appropriately positioned. Electronically signed by Matt Marshall 10-14-2024 8:11 PM ECG Additional Comments: ECG. Normal sinus rhythm rate of 83. No acute ST changes seen. QTc 420 Code Status & VTE Plan VTE Prophylaxis Plan VTE Prophylaxis will be ordered: Yes
--- NOTE | 2024-10-14 23:21 | Ultrasound Report ---
Exam(s): US VENOUS BILATERAL LOWER EXTREMITIES EXAM: US Duplex Bilateral Lower Extremities Veins CLINICAL HISTORY: Edema TECHNIQUE: Real-time duplex ultrasound scan of the bilateral lower extremity veins integrating B-mode two-dimensional vascular structure, Doppler spectral analysis, color flow Doppler imaging and compression. COMPARISON: No relevant prior studies available. FINDINGS: Right deep veins: Unremarkable. No Deep vein thrombosis in the right common femoral, femoral, proximal deep femoral or popliteal veins. The veins demonstrate normal color flow, are normally compressible, with normal phasic flow and/or augmentation response. Right superficial veins: Unremarkable. No thrombus in the visualized right great saphenous vein. Left deep veins: Unremarkable. No Deep vein thrombosis in the left common femoral, femoral, proximal deep femoral or popliteal veins. The veins demonstrate normal color flow, are normally compressible, with normal phasic flow and/or augmentation response. Left superficial veins: Unremarkable. No thrombus in the visualized left great saphenous vein. Soft tissues: Nonspecific subcutaneous edema bilaterally. No popliteal cyst. No either there is a 1.2 x 4.2 x 2.0 cm fluid collection of the right groin. IMPRESSION: 1. No deep vein thrombosis of either lower extremity. 2. No either there is a 1.2 x 4.2 x 2.0 cm fluid collection of the right groin. Question seroma, less likely hematoma or abscess. 3. Nonspecific subcutaneous edema bilaterally. Electronically signed by: Danielle Mosley MD 10/14/24 23:19 PM
[2024-10-14] MEDS: INSULIN ASPART PER UNIT CHARGE SC SCH (23:39)
[2024-10-14] MEDS: ENOXAPARIN INJ 40 MG/0.4 ML SYR SQ SCH (23:42)
[2024-10-14] MEDS: SODIUM CHLORIDE 0.9% 1,000 ML IV SCH (23:42)
[2024-10-14] MEDS: VANCOMYCIN HCL 1,250 MG in SODIUM CHLORIDE 0.9% 250 ML IV ONE (23:42)
[2024-10-14] MEDS: MEROPENEM 500 MG in SYRINGE 0 ML IV SCH (23:42)
--- NOTE | 2024-10-14 23:49 | CT Scan Report ---
Exam(s): CT CHEST Without Contrast EXAM: CT Chest Without Intravenous Contrast CLINICAL HISTORY: Pneumothorax TECHNIQUE: Axial computed tomography images of the chest without intravenous contrast. CTDI is 17.03 mGy and DLP is 915.91 mGy-cm. Automated exposure control was utilized for the study. A dose lowering technique was utilized adhering to the principles of ALARA. COMPARISON: CT chest 05/29/2023 FINDINGS: Lungs: Mass of the right upper lobe measuring 5.5 cm. Stable herniation of the lung parenchyma through a defect of the lateral right chest. Emphysema. Pleural space: Small right pleural effusion. Trace left pleural effusion. No pneumothorax. Heart: The pericardial effusion measures up to 10 mm. Coronary artery calcifications are present. No cardiomegaly. Bones/joints: There are degenerative changes of the spine. No acute fracture. Soft tissues: Unremarkable. Vasculature: Mild atherosclerosis. No aneurysm. Lymph nodes: Unremarkable. No enlarged lymph nodes. Intraperitoneal space: Mild free fluid in the abdomen is noted. Other findings: There is a right Infusaport. IMPRESSION: 1. No pneumothorax. 2. 5.5 cm right upper lobe mass consistent with malignancy. 3. Small right and trace left pleural effusions 4. Emphysema. 5. A pericardial effusion measures up to 10 mm. Electronically signed by: Danielle Mosley MD 10/14/24 23:48 PM
--- NOTE | 2024-10-15 00:03 | CT Scan Report ---
Exam(s): CT ABDOMEN + PELVIS Without Contrast EXAM: CT Abdomen and Pelvis Without Intravenous Contrast CLINICAL HISTORY: Fever and recent diverticulitis. TECHNIQUE: Axial computed tomography images of the abdomen and pelvis without intravenous contrast. CTDI is 22 mGy and DLP is 1606 mGy-cm. Automated exposure control was utilized for the study. A dose lowering technique was utilized adhering to the principles of ALARA. COMPARISON: No relevant prior studies available. FINDINGS: Lung bases: Unremarkable. No mass. No consolidation. Pleural space: Trace bilateral pleural effusions. ABDOMEN: Liver: Unremarkable. Gallbladder and bile ducts: Cholelithiasis. No ductal dilation. Pancreas: Unremarkable. No ductal dilation. Spleen: Unremarkable. No splenomegaly. Adrenals: Unremarkable. No mass. Kidneys and ureters: Nonobstructing left renal calculus. No hydronephrosis of either kidney. Simple appearing bilateral paraseptal renal cysts, no follow-up is needed. No hydronephrosis of either kidney. Stomach and bowel: See above. No bowel obstruction. PELVIS: Appendix: No findings to suggest acute appendicitis. Bladder: Unremarkable. No stones. Reproductive: Unremarkable as visualized. ABDOMEN and PELVIS: Intraperitoneal space: There is marked thickening of the wall of the sigmoid colon. There is an adjacent fluid and gas collection measuring 2. 4 x 2.6 x 2.5 cm with the adjacent free air. Mild free fluid in the abdomen and pelvis. Bones/joints: No acute fracture. No dislocation. Soft tissues: There is a 3.5 cm fluid collection of the right groin. Small bilateral fat-containing inguinal hernias. Vasculature: Unremarkable. No abdominal aortic aneurysm. Lymph nodes: Unremarkable. No enlarged lymph nodes. IMPRESSION: 1. There is marked thickening of the wall of the sigmoid colon. There is an adjacent fluid and gas collection measuring 2.4 x 2.6 x 2.5 cm with the adjacent free air. This is most consistent with sigmoid diverticulitis complicated by perforation and small abscess. 2. Mild free fluid in the abdomen and pelvis. 3. There is a 3.5 cm fluid collection of the right groin. This could represent a seroma, clinical correlation is recommended. 4. Cholelithiasis. 5. Nonobstructing left renal calculus. No hydronephrosis of either kidney. Communications: Call Doctor Above results Electronically signed by: Danielle Mosley MD 10/15/24 00:03 AM
--- NOTE | 2024-10-15 00:51 | Surgery Consultation ---
Date of Consultation October 15, 2024 Assessment & Plan (1) Diverticulitis: The patient has been admitted on the hospitalist service. From a surgical perspective we recommend the following: Provide analgesics if needed Provide antiemetics if needed Hydrate the patient with intravenous fluids He has been placed on broad-spectrum antibiotics in form of meropenem which should continue. He is also receiving vancomycin Due to the noted diverticular abscess we will make the patient n.p.o. for the present time. At the time my interview the patient was pain-free and nontoxic-appearing. He is currently noted to be afebrile and normotensive without tachycardia. Will monitor how he responds to conservative management and then consider whether or not to advance patient's diet beginning with clear liquids At the present time the patient's abscess is less than 5 cm and therefore not feel the percutaneous intervention is advisable at this time If the patient fails to clinically improve we can consider reimaging to see if there is any increase in size of the abscess that may be amendable to per cutaneous drainage at that time Additional recommendations be forthcoming based on his clinical course as unfolds Addendum (5:00 AM) Patient revisited at bedside. He continues to deny abdominal pain. He also denies any nausea or vomiting Most recent febrile episode was on 725 at approximately 5:30 PM. Patient remains hemodynamically stable. He does not have any abdominal pain with palpa tion of abdomen We will continue with plan as outlined above History of Present Illness Reason for Consultation: Diverticulitis with abscess Attending Physician: Matt Nova MD History of Present Illness This is an 84-year-old male who was admitted to the hospital secondary to fever and chills. Patient says he had outpatient lab work that showed anemia and due to his fevers and chills came to the emergency department. Patient does note a chronic cough. He specifically denies any abdominal pain. He denies any nausea or vomiting. He notes that his bowels are moving normally and he does not report any melena or hematochezia. Of note the patient was seen in the hospital in August of this year secondary to diverticulitis which was treated successfully in a conservative manner. He did not require surgical intervention. Include a CT scan of the chest that shows no pneumothorax. The patient is noted to have a 5.5 cm right upper lobe mass consistent with malignancy. A CT scan of the abdomen pelvis was performed that shows the patient has sigmoid diverticulitis with an adjacent fluid gas collection measuring 2.4 x 2.6 x 2.5 cm with some adjacent free air. Interpreting radiologist felt that this was consistent with a perforation and small abscess of diverticulitis. A lower extremity venous ultrasound showed no evidence of DVT. Labs including CBC were white blood cell count was elevated 12.9. Hemoglobin and hematocrit were 8.0 and 25.5. Platelet count was normal. Chemistry profile showed sodium and potassium as well as the BUN and creatinine were normal. At the time of my interview the patient is resting comfortably in bed and is in no distress.. Allergies Allergy/AdvReac Type Severity Reaction Status Date / Time nafcillin Allergy Intermediate hives Verified 10/14/24 18:42 Home Medications Medication Instructions Recorded Confirmed Type multivitamin with minerals-folic 1 tab PO DAILY 06/04/23 10/14/24 History acid 200 mcg chewable tablet (Men's Multivitamin Gummies) ondansetron HCl 8 mg tablet 8 mg PO Q8H PRN NAUSEA/VOMITING 06/04/23 10/14/24 History prochlorperazine maleate 10 mg 10 mg PO QID PRN NAUSEA/VOMITING 06/04/23 10/14/24 History tablet (Compazine) ferrous sulfate 325 mg (65 mg 325 mg PO 3XWK 09/19/24 10/14/24 History iron) tablet (iron) levothyroxine 88 mcg tablet 88 mcg PO DAILYBB 09/19/24 10/14/24 History metformin 1,000 mg tablet 0 mg PO BIDM 09/19/24 10/14/24 History losartan 100 mg tablet 100 mg PO QAM 10/14/24 10/14/24 History Patient History Medical History Moderate aortic regurgitation Chronic right shoulder pain Mixed hyperlipidemia Type 2 diabetes mellitus Statin intolerance Vitamin B 12 deficiency Surgical History S/P thoracotomy Robotic right VATS (thoracoscopy) --staging lymphadenectomy Right thoracotomy -- exploration for tumor resectability 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 Status post right foot surgery Hx of appendectomy History of bronchoscopy Family History Mother Cancer Lung cancer Father Cancer Lung cancer Social History Smoking Status: Former smoker Tobacco Type: Cigarettes Age Started Using Tobacco: 17; Age Quit Using Tobacco: 52; packs per day: 2.5; Second Hand Exposure: Yes; Hx Alcohol Use: No Hx Substance Use: No Preferred Language: [place] Communication Ability: Effective Visual Impairment: No Limitations Sap Crm Developer Required: No Beliefs That Will Affect Care: None Current Living Situation: Spouse current occupational status: retired Other Information That Helps Us Care for You: No Feels Safe at Home: Yes Safety Concerns: Feels Safe At This Time Assistive Devices: Glasses and Hearing Aid - Bilateral Review of Systems Review of Systems: All systems reviewed & are unremarkable except as noted in HPI & below Physical Exam Constitutional: WD/WN, vitals as above Eyes: no conjunctival abnormality ENMT: Ears: no hearing impairment and no external ear abnormality Mouth: no oropharynx abnormality Neck: trachea midline Respiratory: normal respiratory effort; no respiratory distress and no labored breathing Cardiovascular: Rate/Rhythm: regular rate and regular rhythm Gastrointestinal (Abdomen): Abdomen is soft and nontender. There is no rebound tenderness or guarding. There is no distention. Palpation did not cause pain Musculoskeletal: No calf tenderness Skin: no rashes Neurologic: moves all extremities Psychiatric: A+Ox3, euthymic affect Results & Data Vital Signs (Past 12 Hours) Vital Signs Temp Pulse Pulse Resp BP BP Pulse Ox 10/14/24 23:14 10/14/24 23:14 37.5 C 82 18 148/65 H 95 10/14/24 23:10 71 10/14/24 23:07 10/14/24 22:04 83 22 155/54 H 98 10/14/24 21:00 82 24 146/65 H 93 10/14/24 20:30 80 24 141/64 H 92 10/14/24 20:00 85 22 146/66 H 91 10/14/24 19:30 86 20 134/62 91 10/14/24 19:00 80 20 145/68 H 93 10/14/24 18:43 86 10/14/24 18:29 37.4 C 86 20 157/81 H 93 10/14/24 18:20 92 10/14/24 17:35 39.4 C H 92 H 18 140/62 98 O2 Del Method 10/14/24 23:14 Room Air 10/14/24 23:14 Room Air 10/14/24 23:10 10/14/24 23:07 Room Air 10/14/24 22:04 Room Air 10/14/24 21:00 Room Air 10/14/24 20:30 Room Air 10/14/24 20:00 Room Air 10/14/24 19:30 Room Air 10/14/24 19:00 Room Air 10/14/24 18:43 10/14/24 18:29 Room Air 10/14/24 18:20 Room Air 10/14/24 17:35 Room Air PG Care Time/CCT Total # of Minutes Spent Total Time Spent with Patient: Total time spent is greater than 50% in coordination of care (as documented) at patient's floor/unit and/or counseling patient: Coding Level of Care Code 59083 INT INP/OBS CARE MIN Diagnoses Diverticulitis K57.92
[2024-10-15] MEDS: VANCOMYCIN HCL 1,250 MG in SODIUM CHLORIDE 0.9% 250 ML IV SCH (05:54)
[2024-10-15] MEDS: LEVOTHYROXINE SODIUM 88 MCG TABLET PO SCH (05:54)
[2024-10-15] MEDS: INSULIN ASPART PER UNIT CHARGE SC SCH (06:01)
[2024-10-15 06:41] LABS: Anion Gap 6.0 (3-11); Blood Urea Nitrogen 13.0 mg/dl (6-23); Calcium 7.7 mg/dl (8.6-10.3); Carbon Dioxide 28.0 mmol/L (21-32); Chloride 105.0 mmol/L (98-107); Creatinine Clr Calc Pharmacy 51.5 ml/min; Glucose 93.0 mg/dl (70-99(Fasting)); Hematocrit (blood only) 21.5 % (42.0-52.0); Hemoglobin 6.8 g/dl (14.0-18.0); Iron 10.0 mcg/dl (35-175); Magnesium 1.7 mg/dl (1.7-2.4); Mean Corpuscular Hemoglobin 28.6 pg (25.0-34.0); Mean Corpuscular Volume 90.3 fL (80.0-100.0); Platelet Count 276 K/uL (130-400); Potassium 3.5 mmol/L (3.5-5.1); RDW Standard Deviation 45.2 fL (36.4-46.3); Red Blood Count 2.38 M/uL (4.70-6.10); Sodium 139.0 mmol/L (136-145); Total Iron Binding Cap Calc 176.0 mcg/dl (250-450); Transferrin 126.0 mg/dl (200-360); Transferrin (FE) Percent Satur 6.0 % (20-50); White Blood Count 8.20 K/ul (4.8-10.8)
[2024-10-15 07:12] LABS: Folate (Folic Acid),Ser orPlas 14.65 ng/ml (>5.38)
[2024-10-15 07:13] LABS: Vitamin B12 > 1500 pg/ml (180-914)
[2024-10-15 07:18] LABS: Immature Granulocytes # (auto) 0.03 K/uL (0.01-0.20); Immature Granulocytes % (auto) 0.4 %; RBC Morphology Unremarkable
[2024-10-15 07:29] LABS: Hemoglobin A1C 5.9 % (4.5-5.6)
[2024-10-15 07:36] LABS: Hematocrit (blood only) 22.3 % (42.0-52.0); Hemoglobin 7.1 g/dl (14.0-18.0)
[2024-10-15] MEDS ORDERED: SODIUM CHLORIDE 0.9% 100 ML IV PRN (07:41)
[2024-10-15] MEDS: CEROVITE ADV FORMULA TAB PO SCH (08:32)
[2024-10-15] MEDS: LACTOBACILLUS ACIDOPHILUS 1 GM PACK PO SCH (08:32)
[2024-10-15] MEDS: LOSARTAN POTASSIUM 50 MG TAB PO SCH (08:32)
--- NOTE | 2024-10-15 13:24 | Hospitalist Progress Note ---
Date of Service October 15, 2024 Assessment & Plan (1) Illness: Plan: 84-year-old male with past medical history significant for type 2 diabetes, hypothyroidism, mixed hyperlipidemia, moderate aortic regurgitation, hypertension, vitamin B12 deficiency, right upper lobe non-small lung cancer presents with fevers and chills. Patient states recent outpatient showed anemia. Per [facility] hemoglobin was 7.4 on 10/12 and 8 on 10/13. And today he was having fever and chills not feeling well and came to the ER. Denies any headache. No neck pain. No chest pain. No abdominal pain. No back pain. No pain in the legs. Has chronic cough brings up phlegm. No nausea or vomiting. No diarrhea or constipation. Denies any blood in stools or black stools. Denies any hematuria or burning micturition. No shortness of breath. No runny nose or sore throat. Ambulates without support. Appetite is poor but lately eating somewhat better as per . Hemodynamics are okay. Saturating okay on room air. Acute diverticulitis with perforation and abscess--POA Asymptomatic cholelithiasis Suspected Right Groin Seroma --CT ABD: There is marked thickening of the wall of the sigmoid colon. There is an adjacent fluid and gas collection measuring 2.4 x 2.6 x 2.5 cm with the adjacent free air. This is most consistent with sigmoid diverticulitis complicated by perforation and small abscess. Mild free fluid in the abdomen and pelvis. There is a 3.5 cm fluid collection of the right groin. This could represent a seroma, clinical correlation is recommended. Cholelithiasis. Nonobstructing left renal calculus. No hydronephrosis of either kidney. -- Blood cultures pending --IV vancomycin discontinued --Continue IV meropenem - Continue IV-fluids, bowel rest --Appreciate surgery Anemia of chronic disease Likely secondary to malignancy/iron deficiency Iron deficiency anemia Denies any bleeding issues FOBT pending Monitor H&H and transfuse as needed Hemoglobin dropped to 6.8, will transfuse 1 unit PRBC today Will benefit from IV iron once infection resolves DM II Hold p.o. meds IV insulin per protocol Monitor blood glucose levels Lower extremity edema H/O moderate aortic regurgitation Venous Doppler:No deep vein thrombosis of either lower extremity. No either there is a 1.2 x 4.2 x 2.0 cm fluid collection of the right groin. Question seroma, less likely hematoma or abscess. Nonspecific subcutaneous edema bilaterally. 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 Because of abdominal weight LFTs it was on hold for 3 weeks then resumed lower dose but patient was admitted in the hospital in August 2024 for diverticulitis since then is on hold Patient was evaluated by heme-onc 1 day prior to admission and current plan is to observe and to see back in the clinic in about 3 weeks and to consider Alimta and carboplatin if the patient clinical condition improves Needs follow-up with oncology on discharge DVT prophylaxis Lovenox--Held Re: Anemia SCDs for now Code Status Full code Admission and Anticipated Discharge Date Admission Date: October 14, 2024 Subjective Patient is seen and examined at bedside Denies any nausea, vomiting, abdominal pain Also denies any bleeding issues Reports chronic cough which is unchanged Denies any chest pain, dizziness No other complaints Review of Systems Review of Systems: All systems reviewed & are unremarkable except as noted in Subjective Physical Exam Physical Exam: Physical Exam: Vitals signs as noted above General Appearance:Moderately built and nourished, no apparent distress Head: normocephalic, Atraumatic Eyes: normal inspection, EOMI Neck: supple, Trachea midline Respiratory/Chest: Normal breath sounds, CTA, +port, No accessory muscle use Cardiovascular: S1, S2,+ murmur Abdomen/GI:Soft, Non tender, Bowel sounds present Extremities/Musculoskeletal:normal inspection, Trace edema Neurologic/Psych:AAOX3, grossly no focal neurological deficits Skin: normal color, warm Results & Data Results & Data Vital Signs (Past 12 Hours) Vital Signs Temp Pulse Pulse Resp BP BP BP 10/15/24 11:44 37.1 C 72 16 157/67 H 10/15/24 11:29 36.9 C 70 18 143/57 H 10/15/24 11:28 37.3 C 71 16 139/58 L 10/15/24 11:27 37.0 C 73 18 119/56 L 10/15/24 11:09 36.5 C 73 16 152/64 H 10/15/24 09:46 10/15/24 07:41 37.5 C 72 18 135/53 L 10/15/24 06:52 72 10/15/24 04:46 37.0 C 84 18 131/53 L Pulse Ox O2 Del Method O2 Flow Rate 10/15/24 11:44 91 0 10/15/24 11:29 90 0 10/15/24 11:28 91 0 10/15/24 11:27 91 Room Air 10/15/24 11:09 91 0 10/15/24 09:46 Room Air 10/15/24 07:41 90 Room Air 10/15/24 06:52 10/15/24 04:46 93 Room Air Laboratory Results Short CBC 10/14/24 10/15/24 10/15/24 Range/Units 17:55 05:50 07:09 WBC 12.91 H 8.20 (4.8-10.8) K/ul Hgb 8.0 L 6.8 L* 7.1 L (14.0-18.0) g/dl Hct 25.5 L 21.5 L 22.3 L (42.0-52.0) % Plt Count 397 276 (130-400) K/uL BMP 10/14/24 10/15/24 17:55 05:50 Sodium 137 139 Potassium 3.7 3.5 Chloride 101 105 Carbon Dioxide 28 28 BUN 13 13 Creatinine 0.92 0.89 Glucose 141 H 93 Calcium 8.4 L 7.7 L Liver Function 10/14/24 Range/Units 17:55 Total Bilirubin 0.5 (0.2-1.0) mg/dl Direct Bilirubin 0.2 (0-0.2) mg/dl AST 11 L (13-39) U/L ALT 5 L (7-52) U/L Alkaline Phosphatase 119 H (34-104) U/L Albumin 3.4 (3.4-5.0) gm/dl Urine 10/14/24 Range/Units 20:10 Urine Color Yellow Urine Appearance Clear (Clear) Urine pH 5.5 (4.5-7.5) Ur Specific [place] 1.020 (1.000-1.030) Urine Protein Trace H (Negative) Urine Glucose (UA) Negative (Negative)
[2024-10-15] MEDS: LACTATED RINGER'S 1,000 ML IV SCH (14:49)
[2024-10-15 16:33] LABS: Hematocrit (blood only) 25.5 % (42.0-52.0); Hemoglobin 8.3 g/dl (14.0-18.0)
[2024-10-15 21:03] LABS: Hematocrit (blood only) 25.5 % (42.0-52.0); Hemoglobin 8.1 g/dl (14.0-18.0)
--- NOTE | 2024-10-16 04:08 | Surgery Progress Note ---
Date of Service October 16, 2024 Assessment & Plan (1) Diverticulitis: Plan: The patient has been admitted on the hospitalist service. From a surgical perspective we recommend the following: Continue analgesics and antiemetics as needed Continue broad-spectrum antibiotics in form of meropenem Patient is currently n.p.o. for the present time due to diverticular abscess. The patient continues to clinically improve consideration be given to advancing diet beginning with clear liquids hydrate the patient with intravenous fluids while n.p.o. Imaging reveals the diverticular abscess is less than 5 cm and therefore not feel the percutaneous intervention is advisable at this time Additional recommendations be forthcoming based on his clinical course as unfolds Doing well. Can initiate clears. No urgent or emergent indication for surgical intervention Admission and Anticipated Discharge Date Admission Date: October 14, 2024 Subjective Patient is resting comfortably in bed. He denies any abdominal pain. He denies any nausea or vomiting. He denies any fevers, shakes, or chills over the past 24 hours Physical Exam Gastrointestinal (Abdomen): Abdomen is soft without distention. No pain with palpation. No signs of p eritonitis Results & Data Vital Signs (Past 12 Hours) Vital Signs Temp Pulse Pulse Resp BP Pulse Ox O2 Del Method 10/16/24 02:37 36.7 C 67 18 163/57 H 93 Room Air 10/15/24 22:19 36.9 C 72 18 145/56 H 91 Room Air 10/15/24 22:15 72 10/15/24 19:23 Room Air 10/15/24 19:19 37.2 C 73 18 148/47 H 92 Room Air PG Care Time/CCT Total # of Minutes Spent Total Time Spent with Patient: Total time spent is greater than 50% in coordination of care (as documented) at patient's floor/unit and/or counseling patient: Coding Level of Care Code 18996 SUB INP/OBS CARE 04/16MIN Diagnoses Diverticulitis K57.92
[2024-10-16] MEDS: DEXTROSE 50% 50 ML SYRINGE IV PRN (05:43)
[2024-10-16 06:28] LABS: Hematocrit (blood only) 28.0 % (42.0-52.0); Hemoglobin 9.0 g/dl (14.0-18.0); Mean Corpuscular Hemoglobin 28.9 pg (25.0-34.0); Mean Corpuscular Volume 90.0 fL (80.0-100.0); Platelet Count 314 K/uL (130-400); RDW Standard Deviation 45.9 fL (36.4-46.3); Red Blood Count 3.11 M/uL (4.70-6.10); White Blood Count 9.00 K/ul (4.8-10.8)
[2024-10-16 07:08] LABS: Anion Gap 11.0 (3-11); Blood Urea Nitrogen 12.0 mg/dl (6-23); Calcium 8.4 mg/dl (8.6-10.3); Carbon Dioxide 24.0 mmol/L (21-32); Chloride 103.0 mmol/L (98-107); Creatinine Clr Calc Pharmacy 56.6 ml/min; Glucose 119.0 mg/dl (70-99(Fasting)); Potassium 3.4 mmol/L (3.5-5.1); Sodium 138.0 mmol/L (136-145)
[2024-10-16] MEDS: ADVANCED PROBIOTIC 625 MG CAPSULE PO SCH (08:21)
[2024-10-16] MEDS: D5W AND 1/2NSS + 20MEQ KCL 20 MEQ/1,000 ML BAG IV SCH (10:30)
[2024-10-16] MEDS: POTASSIUM CHLORIDE / WTR 10 MEQ/100 ML PLCT IV SCH (10:30)
[2024-10-16] MEDS ORDERED: Nursing to Pharmacy Communication SCH (11:30)
[2024-10-16] MEDS: INSULIN ASPART PER UNIT CHARGE SC SCH (12:13)
--- NOTE | 2024-10-16 14:48 | Hospitalist Progress Note ---
Date of Service October 16, 2024 Assessment & Plan (1) Illness: Plan: 84-year-old male with past medical history significant for type 2 diabetes, hypothyroidism, mixed hyperlipidemia, moderate aortic regurgitation, hypertension, vitamin B12 deficiency, right upper lobe non-small lung cancer presents with fevers and chills. Patient states recent outpatient showed anemia. Per [facility] hemoglobin was 7.4 on 10/12 and 8 on 10/13. And today he was having fever and chills not feeling well and came to the ER. Denies any headache. No neck pain. No chest pain. No abdominal pain. No back pain. No pain in the legs. Has chronic cough brings up phlegm. No nausea or vomiting. No diarrhea or constipation. Denies any blood in stools or black stools. Denies any hematuria or burning micturition. No shortness of breath. No runny nose or sore throat. Ambulates without support. Appetite is poor but lately eating somewhat better as per . Hemodynamics are okay. Saturating okay on room air. Acute diverticulitis with perforation and abscess--POA Asymptomatic cholelithiasis Suspected Right Groin Seroma --CT ABD: There is marked thickening of the wall of the sigmoid colon. There is an adjacent fluid and gas collection measuring 2.4 x 2.6 x 2.5 cm with the adjacent free air. This is most consistent with sigmoid diverticulitis complicated by perforation and small abscess. Mild free fluid in the abdomen and pelvis. There is a 3.5 cm fluid collection of the right groin. This could represent a seroma, clinical correlation is recommended. Cholelithiasis. Nonobstructing left renal calculus. No hydronephrosis of either kidney. -- Blood cultures: Negative to date --IV vancomycin discontinued --Continue IV meropenem - Continue gentle IV-fluids --Appreciate surgery input --Clear liquid diet today Anemia of chronic disease Likely secondary to malignancy/iron deficiency Iron deficiency anemia --S/P 1 unit PRBCs Denies any bleeding issues FOBT pending Monitor H&H and transfuse as needed Will benefit from IV iron once infection resolves Hemoglobin stable post transfusion DM II Hold p.o. meds IV insulin per protocol Monitor blood glucose levels Lower extremity edema H/O moderate aortic regurgitation Venous Doppler:No deep vein thrombosis of either lower extremity. No either there is a 1.2 x 4.2 x 2.0 cm fluid collection of the right groin. Question seroma, less likely hematoma or abscess. Nonspecific subcutaneous edema bilaterally. 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 Because of abdominal weight LFTs it was on hold for 3 weeks then resumed lower dose but patient was admitted in the hospital in August 2024 for diverticulitis since then is on hold Patient was evaluated by heme-onc 1 day prior to admission and current plan is to observe and to see back in the clinic in about 3 weeks and to consider Alimta and carboplatin if the patient clinical condition improves Needs follow-up with oncology on discharge DVT prophylaxis Lovenox--Held Re: Anemia SCDs for now Code Status Full code Admission and Anticipated Discharge Date Admission Date: October 14, 2024 Subjective Patient is seen and examined at bedside No new complaints Denies any nausea, vomiting, abdominal pain, dyspnea Discussed with patient's family at bedside Reports chronic cough which is unchanged Review of Systems Review of Systems: All systems reviewed & are unremarkable except as noted in Subjective Physical Exam Physical Exam: Physical Exam: Vitals signs as noted above General Appearance:Moderately built and nourished, no apparent distress Head: normocephalic, Atraumatic Eyes: normal inspection, EOMI Neck: supple, Trachea midline Respiratory/Chest: Normal breath sounds, CTA, +port, No accessory muscle use Cardiovascular: S1, S2,+ murmur Abdomen/GI:Soft, Non tender, Bowel sounds present Extremities/Musculoskeletal:normal inspection, Trace edema Neurologic/Psych:AAOX3, grossly no focal neurological deficits Skin: normal color, warm Results & Data Results & Data Vital Signs (Past 12 Hours) Vital Signs Temp Pulse Pulse Resp BP Pulse Ox O2 Del Method 10/16/24 11:22 36.8 C 69 18 164/67 H 96 Room Air 10/16/24 08:07 36.7 C 71 18 150/56 H 92 Room Air 10/16/24 07:58 Room Air 10/16/24 07:04 79 Laboratory Results Short CBC 10/15/24 10/15/24 10/16/24 Range/Units 16:08 20:42 06:14 WBC 9.00 (4.8-10.8) K/ul Hgb 8.3 L 8.1 L 9.0 L (14.0-18.0) g/dl Hct 25.5 L 25.5 L 28.0 L (42.0-52.0) % Plt Count 314 (130-400) K/uL BMP 10/16/24 06:14 Sodium 138 Potassium 3.4 L Chloride 103 Carbon Dioxide 24 BUN 12 Creatinine 0.81 Glucose 119 H Calcium 8.4 L
--- NOTE | 2024-10-17 08:40 | XRay Report ---
EXAM: XR KUB/Abdomen 1 view CLINICAL HISTORY: bowel preforation TECHNIQUE: X-ray images of the abdomen were obtained in supine positions. COMPARISON: CT done on 10/14/2024 FINDINGS: Gas Pattern: A few air density pockets were seen adjacent to the wall of the ascending colon, which could be faeces or due to perforation. No evidence of bowel obstruction or distention. Soft Tissues: Soft tissues of the abdomen appear normal without evidence of masses or calcifications. Liver, spleen, and kidneys are of normal size and position. IMPRESSION: A few air density pockets were seen adjacent to the wall of the ascending colon, which could be faeces or due to perforation. Follow up with CT if clinically warranted. Electronically signed by Matt Marshall 10-17-2024 08:40 AM
[2024-10-17 08:49] LABS: Hematocrit (blood only) 28.3 % (42.0-52.0); Hemoglobin 9.0 g/dl (14.0-18.0)
[2024-10-17 09:07] LABS: Anion Gap 6.0 (3-11); Blood Urea Nitrogen 9.0 mg/dl (6-23); Calcium 8.6 mg/dl (8.6-10.3); Carbon Dioxide 28.0 mmol/L (21-32); Chloride 103.0 mmol/L (98-107); Creatinine Clr Calc Pharmacy 63.7 ml/min; Glucose 95.0 mg/dl (70-99(Fasting)); Magnesium 1.7 mg/dl (1.7-2.4); Potassium 3.6 mmol/L (3.5-5.1); Sodium 137.0 mmol/L (136-145)
[2024-10-17] MEDS: FERROUS SULFATE 325 MG TAB PO SCH (09:17)
[2024-10-17] MEDS: LACTATED RINGER'S 1,000 ML IV ONE (11:14)
--- NOTE | 2024-10-17 14:40 | Hospitalist Progress Note ---
Date of Service October 17, 2024 Assessment & Plan (1) Illness: Plan: 84-year-old male with past medical history significant for type 2 diabetes, hypothyroidism, mixed hyperlipidemia, moderate aortic regurgitation, hypertension, vitamin B12 deficiency, right upper lobe non-small lung cancer presents with fevers and chills. Patient states recent outpatient showed anemia. Per [facility] hemoglobin was 7.4 on 10/12 and 8 on 10/13. And today he was having fever and chills not feeling well and came to the ER. Denies any headache. No neck pain. No chest pain. No abdominal pain. No back pain. No pain in the legs. Has chronic cough brings up phlegm. No nausea or vomiting. No diarrhea or constipation. Denies any blood in stools or black stools. Denies any hematuria or burning micturition. No shortness of breath. No runny nose or sore throat. Ambulates without support. Appetite is poor but lately eating somewhat better as per . Hemodynamics are okay. Saturating okay on room air. Acute diverticulitis with perforation and abscess--POA Sepsis--POA Asymptomatic cholelithiasis Suspected Right Groin Seroma --CT ABD: There is marked thickening of the wall of the sigmoid colon. There is an adjacent fluid and gas collection measuring 2.4 x 2.6 x 2.5 cm with the adjacent free air. This is most consistent with sigmoid diverticulitis complicated by perforation and small abscess. Mild free fluid in the abdomen and pelvis. There is a 3.5 cm fluid collection of the right groin. This could represent a seroma, clinical correlation is recommended. Cholelithiasis. Nonobstructing left renal calculus. No hydronephrosis of either kidney. -- Blood cultures: Negative to date --IV vancomycin discontinued --Continue IV meropenem - Advance to full liquid diet today --Appreciate surgery input Anemia of chronic disease Likely secondary to malignancy/iron deficiency Iron deficiency anemia --S/P 1 unit PRBCs Denies any bleeding issues FOBT negative Monitor H&H and transfuse as needed Will benefit from IV iron once infection resolves Hemoglobin stable post transfusion Diarrhea Likely due to antibiotics Check stool for C. difficile DM II Hold p.o. meds IV insulin per protocol Monitor blood glucose levels Lower extremity edema H/O moderate aortic regurgitation Venous Doppler:No deep vein thrombosis of either lower extremity. No either there is a 1.2 x 4.2 x 2.0 cm fluid collection of the right groin. Question seroma, less likely hematoma or abscess. Nonspecific subcutaneous edema bilaterally. 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 Because of abdominal weight LFTs it was on hold for 3 weeks then resumed lower dose but patient was admitted in the hospital in August 2024 for diverticulitis since then is on hold Patient was evaluated by heme-onc 1 day prior to admission and current plan is to observe and to see back in the clinic in about 3 weeks and to consider Alimta and carboplatin if the patient clinical condition improves Needs follow-up with oncology on discharge DVT prophylaxis Lovenox--Held Re: Anemia SCDs for now Code Status Full code Admission and Anticipated Discharge Date Admission Date: October 14, 2024 Subjective Patient is seen and examined at bedside Tolerating liquid diet Had 2 loose bowel movements today Family at bedside Discussed with surgery today Denies any chest pain, dyspnea, nausea, vomiting, abdominal pain Reports chronic cough which is unchanged Review of Systems Review of Systems: All systems reviewed & are unremarkable except as noted in Subjective Physical Exam Physical Exam: Physical Exam: Vitals signs as noted above General Appearance:Moderately built and nourished, no apparent distress Head: normocephalic, Atraumatic Eyes: normal inspection, EOMI Neck: supple, Trachea midline Respiratory/Chest: Normal breath sounds, CTA, +port, No accessory muscle use Cardiovascular: S1, S2,+ murmur Abdomen/GI:Soft, Non tender, Bowel sounds present Extremities/Musculoskeletal:normal inspection, Trace edema Neurologic/Psych:AAOX3, grossly no focal neurological deficits Skin: normal color, warm Results & Data Results & Data Vital Signs (Past 12 Hours) Vital Signs Temp Pulse Resp BP Pulse Ox O2 Del Method 10/17/24 12:26 36.7 C 67 18 162/67 H 92 Room Air 10/17/24 08:30 Room Air 10/17/24 08:25 36.7 C 76 17 129/58 L 94 Room Air 10/17/24 02:54 36.9 C 68 18 138/62 92 Room Air Laboratory Results Short CBC 10/17/24 Range/Units 08:06 Hgb 9.0 L (14.0-18.0) g/dl Hct 28.3 L (42.0-52.0) % BMP 10/17/24 08:06 Sodium 137 Potassium 3.6 Chloride 103 Carbon Dioxide 28 BUN 9 Creatinine 0.72 Glucose 95 Calcium 8.6
--- NOTE | 2024-10-17 15:44 | Surgery Progress Note ---
Date of Service October 17, 2024 Assessment & Plan (1) Sepsis: (2) Diverticulitis of intestine with abscess: Plan: avss no abdominal pain tolerating liquids +bowel function abdominal exam benign Plan: Continue IV abx, transition to oral abx for 14 day total course full liquid diet today low fiber diet on discharge continue medical management surgery service signing off, call with questions/concerns Dr. Bay has seen patient and agrees with above. Admission and Anticipated Discharge Date Admission Date: October 14, 2024 Subjective feeling good no abdominal pain tolerating clear liquids no n,v passing flatus and liquid stool no fevers or chills Physical Exam Constitutional: WD/WN, vitals as above cooperative and comfortable; no acute distress and not ill appearing Respiratory: normal respiratory effort; no respiratory distress and no labored breathing Chest (Breasts): Additional Comments: aport present right chest wall covered with tegaderm dressing Gastrointestinal (Abdomen): Inspection/Auscultation: abdomen normal to inspection; abdomen not distended Percussion/Palpation: abdomen soft; abdomen nontender, no guarding, abdomen not rigid and abdomen not firm Skin: no rashes, warm and dry Psychiatric: Orientation: alert and oriented x 3 Results & Data Vital Signs (Past 12 Hours) Vital Signs Temp Pulse Pulse Resp BP Pulse Ox O2 Del Method 10/17/24 12:55 87 10/17/24 12:26 36.7 C 67 18 162/67 H 92 Room Air 10/17/24 08:30 Room Air 10/17/24 08:25 36.7 C 76 17 129/58 L 94 Room Air 10/17/24 05:29 83 Laboratory Results 10/17/24 10/17/24 10/17/24 Range/Units Unknown 11:58 08:06 Hgb 9.0 L (14.0-18.0) g/dl Hct 28.3 L (42.0-52.0) % Sodium 137 (136-145) mmol/L Potassium 3.6 (3.5-5.1) mmol/L Chloride 103 (98-107) mmol/L Carbon Dioxide 28 (21-32) mmol/L Anion Gap 6 (3-11) BUN 9 (6-23) mg/dl Creatinine 0.72 (0.6-1.4) mg/dl Est Cr Clr Drug Dosing 63.7 ml/min eGFR 91.22 BUN/Creatinine Ratio 12.5 (10-20) Glucose 95 (70-99(Fasting)) mg/dl POC Glucose 131 H (70-99) mg/dl Calcium 8.6 (8.6-10.3) mg/dl Magnesium 1.7 (1.7-2.4) mg/dl Stool Occult Bld Scrn Negative (Negative) Stl C. diff Tox B Gene Pending [facility] C. diff [id number] Pending 10/17/24 10/16/24 10/16/24 Range/Units 08:01 20:20 16:52 Hgb (14.0-18.0) g/dl Hct (42.0-52.0) % Sodium (136-145) mmol/L Potassium (3.5-5.1) mmol/L Chloride (98-107) mmol/L Carbon Dioxide (21-32) mmol/L Anion Gap (3-11) BUN (6-23) mg/dl Creatinine (0.6-1.4) mg/dl Est Cr Clr Drug Dosing ml/min eGFR BUN/Creatinine Ratio (10-20) Glucose (70-99(Fasting)) mg/dl POC Glucose 104 H 151 H 110 H (70-99) mg/dl Calcium (8.6-10.3) mg/dl Magnesium (1.7-2.4) mg/dl Stool Occult Bld Scrn (Negative) Stl C. diff Tox B Gene Stl C. diff [id number]
[2024-10-17 15:49] LABS: Cdiff Toxin B Gene (2yr or >) Positive Cdiff Gene (Neg)
[2024-10-17 15:51] LABS: Cdiff Toxin A+B Positive Cdiff Toxin (Negative)
[2024-10-17] MEDS: CHERRY SYRUP 5 ML UDP PO SCH (18:09)
[2024-10-17] MEDS: VANCOMYCIN HCL 125 MG/2.5ML SOLN PO SCH (18:09)
--- NOTE | 2024-10-18 06:19 | Electrocardiogram Report ---
Test Reason : Blood Pressure : */* mmHG Vent. Rate : 83 BPM Atrial Rate : 83 BPM P-R Int : 200 ms QRS Dur : 74 ms QT Int : 358 ms P-R-T Axes : -5 20 49 degrees QTcB Int : 420 ms Normal sinus rhythm Normal ECG When compared with ECG of 19-Sep-2024 14:49, NM interval has decreased Vent. rate has increased by 29 bpm Confirmed by Luis F Macdonald ([id number]) on 10/18/2024 6:19:34 AM Referred By: REFERRED SELF Confirmed By: Luis F Macdonald
[2024-10-18 10:28] LABS: Hematocrit (blood only) 28.9 % (42.0-52.0); Hemoglobin 9.1 g/dl (14.0-18.0); Mean Corpuscular Hemoglobin 28.2 pg (25.0-34.0); Mean Corpuscular Volume 89.5 fL (80.0-100.0); Platelet Count 381 K/uL (130-400); RDW Standard Deviation 46.4 fL (36.4-46.3); Red Blood Count 3.23 M/uL (4.70-6.10); White Blood Count 9.15 K/ul (4.8-10.8)
[2024-10-18 10:40] LABS: Anion Gap 7.0 (3-11); Blood Urea Nitrogen 9.0 mg/dl (6-23); Calcium 8.7 mg/dl (8.6-10.3); Carbon Dioxide 28.0 mmol/L (21-32); Chloride 102.0 mmol/L (98-107); Creatinine Clr Calc Pharmacy 58.0 ml/min; Glucose 153.0 mg/dl (70-99(Fasting)); Magnesium 1.6 mg/dl (1.7-2.4); Potassium 3.6 mmol/L (3.5-5.1); Sodium 137.0 mmol/L (136-145)
--- NOTE | 2024-10-18 14:19 | Hospitalist Progress Note ---
Date of Service October 18, 2024 Assessment & Plan (1) Illness: Plan: 84-year-old male with past medical history significant for type 2 diabetes, hypothyroidism, mixed hyperlipidemia, moderate aortic regurgitation, hypertension, vitamin B12 deficiency, right upper lobe non-small lung cancer presents with fevers and chills. Patient states recent outpatient showed anemia. Per [facility] hemoglobin was 7.4 on 10/12 and 8 on 10/13. And today he was having fever and chills not feeling well and came to the ER. Denies any headache. No neck pain. No chest pain. No abdominal pain. No back pain. No pain in the legs. Has chronic cough brings up phlegm. No nausea or vomiting. No diarrhea or constipation. Denies any blood in stools or black stools. Denies any hematuria or burning micturition. No shortness of breath. No runny nose or sore throat. Ambulates without support. Appetite is poor but lately eating somewhat better as per . Hemodynamics are okay. Saturating okay on room air. Acute diverticulitis with perforation and abscess--POA Sepsis--POA Asymptomatic cholelithiasis Suspected Right Groin Seroma --CT ABD: There is marked thickening of the wall of the sigmoid colon. There is an adjacent fluid and gas collection measuring 2.4 x 2.6 x 2.5 cm with the adjacent free air. This is most consistent with sigmoid diverticulitis complicated by perforation and small abscess. Mild free fluid in the abdomen and pelvis. There is a 3.5 cm fluid collection of the right groin. This could represent a seroma, clinical correlation is recommended. Cholelithiasis. Nonobstructing left renal calculus. No hydronephrosis of either kidney. -- Blood cultures: Negative to date -- Started on IV vancomycin and that has been discontinued --Continue IV meropenem for now - Advance to full liquid diet today --Appreciate surgery input and recommendation Clinically much better without any fever, distention, pain, nausea or vomiting Will advance diet as tolerated Likely discharge in a day or 2 Anemia of chronic disease Likely secondary to malignancy/iron deficiency Iron deficiency anemia --S/P 1 unit PRBCs Denies any bleeding issues FOBT negative Monitor H&H and transfuse as needed Will benefit from IV iron once infection resolves Hemoglobin stable post transfusion-hemoglobin stable at 9.1 as of 10/18/2024 Diarrhea Likely due to antibiotics Check stool for C. difficile Stool is positive for C. difficile and oral vancomycin has been started DM II Hold p.o. meds IV insulin per protocol Monitor blood glucose levels Lower extremity edema H/O moderate aortic regurgitation Venous Doppler:No deep vein thrombosis of either lower extremity. No either there is a 1.2 x 4.2 x 2.0 cm fluid collection of the right groin. Question seroma, less likely hematoma or abscess. Nonspecific subcutaneous edema bilaterally. Monitor volume status closely Hypertension Continue losartan Monitor BP Hypothyroidism Continue levothyroxine Adenocarcinoma right lung Right upper lobe non-small cell lung cancer Mediastinal hilar lymph node involvement Immunotherapy was started on 08/20/2023 Disease progression on PET/CT scan done on 05/25/2024 Was started on sotorasib on last week of May 2024. Because of abdominal weight LFTs it was on hold for 3 weeks then resumed lower dose but patient was admitted in the hospital in August 2024 for diverticulitis since then is on hold Patient was evaluated by heme-onc 1 day prior to admission and current plan is to observe and to see back in the clinic in about 3 weeks and to consider Alimta and carboplatin if the patient clinical condition improves Needs follow-up with oncology on discharge DVT prophylaxis Lovenox--Held Re: Anemia SCDs for now Code Status Full code Admission and Anticipated Discharge Date Admission Date: October 14, 2024 Subjective 10/18/2024 The patient was seen and examined in medical telemetry unit in presence of the He has CTA of the lung and has been getting immunotherapy and presented with fever with history of diverticulitis Noted to have diverticulitis with microabscess and later on found to have C. difficile colitis Clinically much better and denies any symptoms of pain, distention, nausea and or vomiting Review of Systems Review of Systems: All systems reviewed and are unremarkable except as noted below Physical Exam Physical Exam: Sitting at the edge of the bed without any acute distress Constitutional: well developed, well nourished and + ill appearing Eyes: PERRL, conjunctivae normal, anicteric sclerae ENMT: external ear and nose normal, oropharynx normal Neck: trachea midline, no thyromegaly Respiratory: no respiratory distress Auscultation: lungs clear to auscultation bilaterally Cardiovascular: Rate/Rhythm: regular rate and regular rhythm; not tachycardic Heart Sounds: normal S1 and normal S2; no murmur Extremities: no edema Gastrointestinal (Abdomen): Inspection/Auscultation: normal bowel sounds; abdomen not distended Percussion/Palpation: + abdomen tender (Minimally tender left lower quadrant without guarding no rigidity) and abdomen soft Musculoskeletal: No acute arthritis involving any of the joint Neurologic: normal touch/pain/proprioception and moves all extremities; no focal motor deficits Lymphatic: no cervical or axillary lymphadenopathy Results & Data Results & Data Vital Signs (Past 12 Hours) Vital Signs Temp Pulse Pulse Resp BP Pulse Ox O2 Del Method 10/18/24 11:23 36.6 C 65 17 135/69 97 Room Air 10/18/24 10:51 70 10/18/24 08:21 36.9 C 79 17 147/67 H 94 Room Air 10/18/24 03:23 36.8 C 71 18 132/59 L 91 Room Air Laboratory Results Short CBC 10/18/24 Range/Units 09:58 WBC 9.15 (4.8-10.8) K/ul Hgb 9.1 L (14.0-18.0) g/dl Hct 28.9 L (42.0-52.0) % Plt Count 381 (130-400) K/uL BMP 10/18/24 09:58 Sodium 137 Potassium 3.6 Chloride 102 Carbon Dioxide 28 BUN 9 Creatinine 0.79 Glucose 153 H Calcium 8.7 Medications Administered Current Inpatient Medications Acetaminophen (Acetaminophen 325 Mg Tab) 650 mg PO Q4H PRN PRN Reason: Pain or Fever Stop: 11/13/24 23:06 Velásquez Syrup (Velásquez Syrup 5 Ml Udp) 5 ml PO Q6 LIZY Stop: 10/27/24 17:59 Last Admin: 10/18/24 12:27 Dose: 5 ml Dextrose (Dextrose 50% 50 Ml Syringe) 25 - 50 ml IV UD PRN; Protocol PRN Reason: Hypoglycemia Protocol Stop: 11/13/24 23:06 Last Admin: 10/16/24 05:43 Dose: 25 ml Ferrous Sulfate (Ferrous Sulfate 325 Mg Tab) 325 mg PO MoWeFr LIZY Stop: 11/16/24 08:59 Last Admin: 10/17/24 09:17 Dose: 325 mg Glucagon (Glucagon For Inj 1 Mg Vial) 1 mg SQ UD PRN; Protocol PRN Reason: Hypoglycemia Protocol Stop: 11/13/24 23:06 Glucose (Glucose 40% Gel 15 Gm Tube) 15 - 30 gm PO UD PRN; Protocol PRN Reason: Hypoglycemia Protocol Stop: 11/13/24 23:06 Glucose (Glucose 10 Tab/Tube) 4 - 8 tab PO UD PRN; Protocol PRN Reason: Hypoglycemia Protocol Stop: 11/13/24 23:06 Heparin Sodium (Porcine) (Heparin 100 Unit/Ml 5ml Flush) 5 ml FLUSH PRN PRN PRN Reason: Flush Stop: 11/14/24 08:49 Meropenem 500 mg/ Syringe 10 mls @ 2 mls/min IV Q6 LIZY; Protocol Stop: 10/24/24 23:14 Last Admin: 10/18/24 12:27 Dose: 2 mls/min Insulin Aspart (Insulin Aspart Per Unit Charge) 0 units SC ACHS LIZY Stop: 11/15/24 11:29 Last Admin: 10/18/24 12:28 Dose: Not Given Lactobacillus Acidophilus (Advanced Probiotic 625 Mg Capsule) 1,250 mg PO DAILY LIZY Stop: 11/15/24 08:59 Last Admin: 10/18/24 09:44 Dose: 1,250 mg Levothyroxine Sodium (Levothyroxine Sodium 88 Mcg Tablet) 88 mcg PO DAILYBB LIZY Stop: 11/14/24 06:29 Last Admin: 10/18/24 05:34 Dose: 88 mcg Losartan Potassium (Losartan Potassium 50 Mg Tab) 100 mg PO QAM LIZY Stop: 11/14/24 08:59 Last Admin: 10/18/24 09:44 Dose: 100 mg Miscellaneous (Carbohydrates For Hypoglycemia ) 15 - 30 gm PO UD PRN PRN Reason: Hypoglycemia Protocol Stop: 11/13/24 23:06 Multivitamins/Minerals (Cerovite Adv Formula Tab) 1 tab PO DAILY LIZY Stop: 11/14/24 08:59 Last Admin: 10/18/24 09:44 Dose: 1 tab Nitroglycerin (Nitroglycerin Sl 0.4 Mg/Tab Tab) 0.4 mg SL Q5M PRN PRN Reason: Chest Pain Stop: 11/13/24 23:06 Vancomycin HCl (Vancomycin Hcl 125 Mg/2.5ml Soln) 125 mg PO Q6 LIZY Stop: 10/27/24 17:59 Last Admin: 10/18/24 12:27 Dose: 125 mg
[2024-10-19 07:04] VITALS: TEMP 97.9
[2024-10-19 07:13] LABS: Hematocrit (blood only) 26.4 % (42.0-52.0); Hemoglobin 8.5 g/dl (14.0-18.0); Immature Granulocytes # (auto) 0.03 K/uL (0.01-0.20); Immature Granulocytes % (auto) 0.4 %; Mean Corpuscular Hemoglobin 29.0 pg (25.0-34.0); Mean Corpuscular Volume 90.1 fL (80.0-100.0); Platelet Count 310 K/uL (130-400); RDW Standard Deviation 45.9 fL (36.4-46.3); Red Blood Count 2.93 M/uL (4.70-6.10); White Blood Count 7.52 K/ul (4.8-10.8)
[2024-10-19 07:41] LABS: Anion Gap 5.0 (3-11); Blood Urea Nitrogen 10.0 mg/dl (6-23); Calcium 8.1 mg/dl (8.6-10.3); Carbon Dioxide 30.0 mmol/L (21-32); Chloride 104.0 mmol/L (98-107); Creatinine Clr Calc Pharmacy 66.4 ml/min; Glucose 82.0 mg/dl (70-99(Fasting)); Magnesium 1.6 mg/dl (1.7-2.4); Potassium 3.7 mmol/L (3.5-5.1); Sodium 139.0 mmol/L (136-145)
[2024-10-19] MEDS: MAGNESIUM SULFATE / D5W 1 GM/100 ML BAG IV SCH (08:18)
[2024-10-19 10:51] VITALS: RESP 18; O2SAT 97
[2024-10-19] MEDS: CIPROFLOXACIN 500 MG TAB PO SCH (10:53)
--- NOTE | 2024-10-19 13:11 | Hospitalist Progress Note ---
Date of Service October 19, 2024 Assessment & Plan (1) Illness: Plan: 84-year-old male with past medical history significant for type 2 diabetes, hypothyroidism, mixed hyperlipidemia, moderate aortic regurgitation, hypertension, vitamin B12 deficiency, right upper lobe non-small lung cancer presents with fevers and chills. Patient states recent outpatient showed anemia. Per [facility] hemoglobin was 7.4 on 10/12 and 8 on 10/13. And today he was having fever and chills not feeling well and came to the ER. Denies any headache. No neck pain. No chest pain. No abdominal pain. No back pain. No pain in the legs. Has chronic cough brings up phlegm. No nausea or vomiting. No diarrhea or constipation. Denies any blood in stools or black stools. Denies any hematuria or burning micturition. No shortness of breath. No runny nose or sore throat. Ambulates without support. Appetite is poor but lately eating somewhat better as per . Hemodynamics are okay. Saturating okay on room air. Acute diverticulitis with perforation and abscess--POA Sepsis--POA Asymptomatic cholelithiasis Suspected Right Groin Seroma --CT ABD: There is marked thickening of the wall of the sigmoid colon. There is an adjacent fluid and gas collection measuring 2.4 x 2.6 x 2.5 cm with the adjacent free air. This is most consistent with sigmoid diverticulitis complicated by perforation and small abscess. Mild free fluid in the abdomen and pelvis. There is a 3.5 cm fluid collection of the right groin. This could represent a seroma, clinical correlation is recommended. Cholelithiasis. Nonobstructing left renal calculus. No hydronephrosis of either kidney. -- Blood cultures: Negative to date -- Started on IV vancomycin and that has been discontinued --Continue IV meropenem for now - Advance to full liquid diet today --Appreciate surgery input and recommendation Clinically much better without any fever, distention, pain, nausea or vomiting Will advance diet as tolerated Likely discharge in a day or 2 Remains afebrile and asymptomatic. No abdominal discomfort. Tolerating regular diet and bowel is moving Started with oral antibiotic and will be discharged home this afternoon Anemia of chronic disease Likely secondary to malignancy/iron deficiency Iron deficiency anemia --S/P 1 unit PRBCs Denies any bleeding issues FOBT negative Monitor H&H and transfuse as needed Will benefit from IV iron once infection resolves Hemoglobin stable post transfusion-hemoglobin stable at 9.1 as of 10/18/2024 10 system advised to keep appointment with his oncologist and also PCP and check hemoglobin Diarrhea Likely due to antibiotics Check stool for C. difficile Stool is positive for C. difficile and oral vancomycin has been started Will finish the course of vancomycin for total of 14 days DM II Hold p.o. meds IV insulin per protocol Monitor blood glucose levels Lower extremity edema H/O moderate aortic regurgitation Venous Doppler:No deep vein thrombosis of either lower extremity. No either there is a 1.2 x 4.2 x 2.0 cm fluid collection of the right groin. Question seroma, less likely hematoma or abscess. Nonspecific subcutaneous edema bilaterally. Monitor volume status closely Hypertension Continue losartan Monitor BP Hypothyroidism Continue levothyroxine Adenocarcinoma right lung Right upper lobe non-small cell lung cancer Mediastinal hilar lymph node involvement Immunotherapy was started on 08/20/2023 Disease progression on PET/CT scan done on 05/25/2024 Was started on sotorasib on last week of May 2024. Because of abdominal weight LFTs it was on hold for 3 weeks then resumed lower dose but patient was admitted in the hospital in August 2024 for diverticulitis since then is on hold Patient was evaluated by heme-onc 1 day prior to admission and current plan is to observe and to see back in the clinic in about 3 weeks and to consider Alimta and carboplatin if the patient clinical condition improves Needs follow-up with oncology on discharge Strongly advised to have follow-up appointment with his oncologist DVT prophylaxis Lovenox--Held Re: Anemia SCDs for now Code Status Full code Admission and Anticipated Discharge Date Admission Date: October 14, 2024 Subjective 10/18/2024 The patient was seen and examined in medical telemetry unit in presence of the He has CTA of the lung and has been getting immunotherapy and presented with fever with history of diverticulitis Noted to have diverticulitis with microabscess and later on found to have C. difficile colitis Clinically much better and denies any symptoms of pain, distention, nausea and or vomiting 10/19/2024 The patient was seen and examined in medical telemetry unit in presence of the He denies any symptoms and has been tolerating regular diet and bowel has been No more fever and no chills and does not show any other signs and or symptoms of infection Started with oral Cipro and Flagyl and will be discharged home this afternoon Review of Systems Review of Systems: All systems reviewed and are unremarkable except as noted below Physical Exam Physical Exam: Sitting at the edge of the bed without any acute distress Constitutional: well developed, well nourished and + ill appearing Eyes: PERRL, conjunctivae normal, anicteric sclerae ENMT: external ear and nose normal, oropharynx normal Neck: trachea midline, no thyromegaly Respiratory: no respiratory distress Auscultation: lungs clear to auscultation bilaterally Cardiovascular: Rate/Rhythm: regular rate and regular rhythm; not tachycardic Heart Sounds: normal S1 and normal S2; no murmur Extremities: no edema Gastrointestinal (Abdomen): Inspection/Auscultation: normal bowel sounds; abdomen not distended Percussion/Palpation: + abdomen tender (Minimally tender left lower quadrant without guarding no rigidity) and abdomen soft Neurologic: normal touch/pain/proprioception and moves all extremities; no focal motor deficits Lymphatic: no cervical or axillary lymphadenopathy Results & Data Results & Data Vital Signs (Past 12 Hours) Vital Signs Temp Pulse Pulse Resp BP Pulse Ox O2 Del Method 10/19/24 10:51 36.6 C 67 18 132/67 97 Room Air 10/19/24 08:36 Room Air 10/19/24 07:34 81 10/19/24 07:03 36.6 C 65 16 132/57 L 92 Room Air 10/19/24 03:16 36.4 C L 64 18 128/66 92 Room Air Laboratory Results Short CBC 10/19/24 Range/Units 05:47 WBC 7.52 (4.8-10.8) K/ul Hgb 8.5 L (14.0-18.0) g/dl Hct 26.4 L (42.0-52.0) % Plt Count 310 (130-400) K/uL BMP 10/19/24 05:47 Sodium 139 Potassium 3.7 Chloride 104 Carbon Dioxide 30 BUN 10 Creatinine 0.69 Glucose 82 Calcium 8.1 L Medications Administered Current Inpatient Medications Acetaminophen (Acetaminophen 325 Mg Tab) 650 mg PO Q4H PRN PRN Reason: Pain or Fever Stop: 11/13/24 23:06 Velásquez Syrup (Velásquez Syrup 5 Ml Udp) 5 ml PO Q6 LIZY Stop: 10/27/24 17:59 Last Admin: 10/19/24 11:43 Dose: 5 ml Ciprofloxacin (Ciprofloxacin 500 Mg Tab) 500 mg PO BID LIZY Stop: 10/25/24 10:59 Last Admin: 10/19/24 10:53 Dose: 500 mg Dextrose (Dextrose 50% 50 Ml Syringe) 25 - 50 ml IV UD PRN; Protocol PRN Reason: Hypoglycemia Protocol Stop: 11/13/24 23:06 Last Admin: 10/16/24 05:43 Dose: 25 ml Ferrous Sulfate (Ferrous Sulfate 325 Mg Tab) 325 mg PO MoWeFr LIZY Stop: 11/16/24 08:59 Last Admin: 10/19/24 08:18 Dose: 325 mg Glucagon (Glucagon For Inj 1 Mg Vial) 1 mg SQ UD PRN; Protocol PRN Reason: Hypoglycemia Protocol Stop: 11/13/24 23:06 Glucose (Glucose 40% Gel 15 Gm Tube) 15 - 30 gm PO UD PRN; Protocol PRN Reason: Hypoglycemia Protocol Stop: 11/13/24 23:06 Glucose (Glucose 10 Tab/Tube) 4 - 8 tab PO UD PRN; Protocol PRN Reason: Hypoglycemia Protocol Stop: 11/13/24 23:06 Heparin Sodium (Porcine) (Heparin 100 Unit/Ml 5ml Flush) 5 ml FLUSH PRN PRN PRN Reason: Flush Stop: 11/14/24 08:49 Insulin Aspart (Insulin Aspart Per Unit Charge) 0 units SC ACHS LIZY Stop: 11/15/24 11:29 Last Admin: 10/19/24 12:16 Dose: Not Given Lactobacillus Acidophilus (Advanced Probiotic 625 Mg Capsule) 1,250 mg PO DAILY LIZY Stop: 11/15/24 08:59 Last Admin: 10/19/24 08:18 Dose: 1,250 mg Levothyroxine Sodium (Levothyroxine Sodium 88 Mcg Tablet) 88 mcg PO DAILYBB LIZY Stop: 11/14/24 06:29 Last Admin: 10/19/24 05:50 Dose: 88 mcg Losartan Potassium (Losartan Potassium 50 Mg Tab) 100 mg PO QAM LIZY Stop: 11/14/24 08:59 Last Admin: 10/19/24 08:18 Dose: 100 mg Metronidazole (Metronidazole 500 Mg Tab) 500 mg PO TID LIZY Stop: 10/24/24 23:59 Miscellaneous (Carbohydrates For Hypoglycemia ) 15 - 30 gm PO UD PRN PRN Reason: Hypoglycemia Protocol Stop: 11/13/24 23:06 Multivitamins/Minerals (Cerovite Adv Formula Tab) 1 tab PO DAILY LIZY Stop: 11/14/24 08:59 Last Admin: 10/19/24 08:18 Dose: 1 tab Nitroglycerin (Nitroglycerin Sl 0.4 Mg/Tab Tab) 0.4 mg SL Q5M PRN PRN Reason: Chest Pain Stop: 11/13/24 23:06 Vancomycin HCl (Vancomycin Hcl 125 Mg/2.5ml Soln) 125 mg PO Q6 LIZY Stop: 10/27/24 17:59 Last Admin: 10/19/24 11:43 Dose: 125 mg
[2024-10-19 13:54] VITALS: BP 126/54; PULSE 74
[2024-10-19] MEDS: metroNIDAZOLE 500 MG TAB PO SCH (14:05)
[2024-10-19] MEDS: HEPARIN 100 UNIT/ML 5ML FLUSH FLUSH PRN (14:08)
--- NOTE | 2024-10-19 16:44 | Discharge Summary ---
Date of Service October 19, 2024 Admission HPI Per Admitting Provider 84-year-old male with past medical history significant for type 2 diabetes, hypothyroidism, mixed hyperlipidemia, moderate aortic regurgitation, hypertension, vitamin B12 deficiency, right upper lobe non-small lung cancer presents with fevers and chills. Patient states recent outpatient showed anemia. Per [facility] hemoglobin was 7.4 on 10/12 and 8 on 10/13. And today he was having fever and chills not feeling well and came to the ER. Denies any headache. No neck pain. No chest pain. No abdominal pain. No back pain. No pain in the legs. Has chronic cough brings up phlegm. No nausea or vomiting. No diarrhea or constipation. Denies any blood in stools or black stools. Denies any hematuria or burning micturition. No shortness of breath. No runny nose or sore throat. Ambulates without support. Appetite is poor but lately eating somewhat better as per . Hemodynamics are okay. Saturating okay on room air. Past medical history. As mentioned above Past surgical history. Bronchoscopy with colonoscopy. Robotic thoracoscopy with lymphadenectomy. Thoracotomy with exploration. Right shoulder replacement. Appendectomy. Social history. . Quit smoking 1981.. Smoked 3 pack a day for 34 years. Alcohol rarely now. No drug use. Family history. No family history on file. Admission Exam Per Admitting Provider Physical Exam: General- Not in distress. Head- atraumatic Eyes- PERRL. ENT- oropharynx clear Neck- supple, no JVD. Lungs- clear to auscultation no wheezing or crackles Heart- regular rhythm; no murmur, no gallop. Abdomen- normal bowel sounds, soft, nontender, no distension Extremities- b/l lower extremity edema present, no erythema seen. Neuro- alert, oriented PERRL, no facial palsy; no dysarthria; moves extremities Principal Diagnosis Acute diverticulitis of the sigmoid colon with microperforation, adenocarcinoma lung with ongoing immunotherapy Discharge Exam Sitting at the edge of the bed without any acute distress Constitutional well developed, well nourished and + ill appearing Eyes PERRL, conjunctivae normal, anicteric sclerae ENMT external ear and nose normal, oropharynx normal Neck trachea midline, no thyromegaly Respiratory no respiratory distress Auscultation: lungs clear to auscultation bilaterally Cardiovascular Rate/Rhythm: regular rate and regular rhythm; not tachycardic Heart Sounds: normal S1 and normal S2; no murmur Extremities: no edema Gastrointestinal (Abdomen) Inspection/Auscultation: normal bowel sounds; abdomen not distended Percussion/Palpation: + abdomen tender (Minimally tender left lower quadrant without guarding no rigidity) and abdomen soft Neurologic normal touch/pain/proprioception and moves all extremities; no focal motor deficits Lymphatic no cervical or axillary lymphadenopathy Discharge Data Allergies Allergy/AdvReac Type Severity Reaction Status Date / Time nafcillin Allergy Intermediate hives Verified 10/14/24 18:42 Consultations 10/14/24 19:59 ED Decision to Admit Stat 10/15/24 00:34 Consult General Surgery Routine Ordered Studies 10/14/24 21:01 US venous doppler LE BI Routine 10/14/24 21:01 CT Abd and Pelvis [CT abd pelvis wo con] Urgent CT chest diagnostic wo con Urgent Hospital Course (1) Illness: 84-year-old male with past medical history significant for type 2 diabetes, hypothyroidism, mixed hyperlipidemia, moderate aortic regurgitation, hypertension, vitamin B12 deficiency, right upper lobe non-small lung cancer presents with fevers and chills. Patient states recent outpatient showed anemia. Per [facility] hemoglobin was 7.4 on 10/12 and 8 on 10/13. And today he was having fever and chills not feeling well and came to the ER. Denies any headache. No neck pain. No chest pain. No abdominal pain. No back pain. No pain in the legs. Has chronic cough brings up phlegm. No nausea or vomiting. No diarrhea or constipation. Denies any blood in stools or black stools. Denies any hematuria or burning micturition. No shortness of breath. No runny nose or sore throat. Ambulates without support. Appetite is poor but lately eating somewhat better as per . Hemodynamics are okay. Saturating okay on room air. Acute diverticulitis with perforation and abscess--POA Sepsis--POA Asymptomatic cholelithiasis Suspected Right Groin Seroma --CT ABD: There is marked thickening of the wall of the sigmoid colon. There is an adjacent fluid and gas collection measuring 2.4 x 2.6 x 2.5 cm with the adjacent free air. This is most consistent with sigmoid diverticulitis complicated by perforation and small abscess. Mild free fluid in the abdomen and pelvis. There is a 3.5 cm fluid collection of the right groin. This could represent a seroma, clinical correlation is recommended. Cholelithiasis. Nonobstructing left renal calculus. No hydronephrosis of either kidney. -- Blood cultures: Negative to date -- Started on IV vancomycin and that has been discontinued --Continue IV meropenem for now - Advance to full liquid diet today --Appreciate surgery input and recommendation Clinically much better without any fever, distention, pain, nausea or vomiting Will advance diet as tolerated Likely discharge in a day or 2 Remains afebrile and asymptomatic. No abdominal discomfort. Tolerating regular diet and bowel is moving Started with oral antibiotic and will be discharged home this afternoon Anemia of chronic disease Likely secondary to malignancy/iron deficiency Iron deficiency anemia --S/P 1 unit PRBCs Denies any bleeding issues FOBT negative Monitor H&H and transfuse as needed Will benefit from IV iron once infection resolves Hemoglobin stable post transfusion-hemoglobin stable at 9.1 as of 10/18/2024 10 system advised to keep appointment with his oncologist and also PCP and check hemoglobin Diarrhea Likely due to antibiotics Check stool for C. difficile Stool is positive for C. difficile and oral vancomycin has been started Will finish the course of vancomycin for total of 14 days DM II Hold p.o. meds IV insulin per protocol Monitor blood glucose levels Lower extremity edema H/O moderate aortic regurgitation Venous Doppler:No deep vein thrombosis of either lower extremity. No either there is a 1.2 x 4.2 x 2.0 cm fluid collection of the right groin. Question seroma, less likely hematoma or abscess. Nonspecific subcutaneous edema bilaterally. Monitor volume status closely Hypertension Continue losartan Monitor BP Hypothyroidism Continue levothyroxine Adenocarcinoma right lung Right upper lobe non-small cell lung cancer Mediastinal hilar lymph node involvement Immunotherapy was started on 08/20/2023 Disease progression on PET/CT scan done on 05/25/2024 Was started on sotorasib on last week of May 2024. Because of abdominal weight LFTs it was on hold for 3 weeks then resumed lower dose but patient was admitted in the hospital in August 2024 for diverticulitis since then is on hold Patient was evaluated by heme-onc 1 day prior to admission and current plan is to observe and to see back in the clinic in about 3 weeks and to consider Alimta and carboplatin if the patient clinical condition improves Needs follow-up with oncology on discharge Strongly advised to have follow-up appointment with his oncologist DVT prophylaxis Lovenox--Held Re: Anemia SCDs for now Code Status Full code Total Time Total Time Spent Total Time Spent (In Minutes): 35 Minutes Discharge Plan Discharge Items Patient Disposition: Home - Self-Care Reason For Visit: ILLNESS, METASTATIC LUNG CANCER Discharge Diagnosis: Acute diverticulitis of the sigmoid colon with microperforation, adenocarcinoma lung with ongoing immunotherapy Condition on Discharge: Fair Activity: Resume your previous activity Non-emergency contact: Primary Care Provider Call non-emergency contact if: you have any medication questions and your symptoms worsen Follow-up/Referrals: Naif Chen MD [Primary Care Provider] - (Date & Time 10/24/2024 9:40 AM Provider: Vianey White MD General Internal Medicine [facility] ) Diet: Regular Addtl Attending Provider Instructions: Please take precautions to avoid falls Finish the course of antibiotic as advised Take hygienic precautions to spread the disease Keep appointments with your healthcare providers, PCP and the oncologist You can take probiotics with antibiotic Pending Studies at Discharge: No Stand-Alone Forms: My [facility] Per Vices, Smoking Cessation Medications and DC Order Prescriptions: New metronidazole 500 mg Tablet 500 mg PO TID Qty: 30 0RF ciprofloxacin HCl 500 mg Tablet 500 mg PO BID Qty: 20 0RF Advanced Probiotic 625 mg (10 billion cell) Capsule 1 cap PO DAILY Qty: 30 0RF vancomycin 125 mg capsule 125 mg PO QID 14 Days Qty: 56 0RF Continued multivit with min-folic acid [Men's Multivitamin Gummies] 200 mcg tablet,chewable 1 tab PO DAILY prochlorperazine maleate [Compazine] 10 mg tablet 10 mg PO QID PRN (Reason: NAUSEA/VOMITING) ondansetron HCl 8 mg tablet 8 mg PO Q8H PRN (Reason: NAUSEA/VOMITING) levothyroxine 88 mcg tablet 88 mcg PO DAILYBB ferrous sulfate [iron] 325 mg (65 mg iron) Tablet 325 mg PO [id number] Rx Instructions: Mon/Wed/Fri metformin 1,000 mg tablet 0 mg PO BIDM Patient Comments: Currently on hold per spouse, due to kidney functions been on hold for 7 days so far. Unsure on restart date. Original Directions: 1000mg by mouth twice daily - 10/14/24 losartan 100 mg tablet 100 mg PO QAM Discharge Orders: Discharge Order (Routine); Ordered 10/19/24 Ordered By: Martha Mitchell/Other Patient Handouts: Managing Type 2 Diabetes Admission Data Admit Date/Time: 10/14/24 20:59 Attending Provider: Martha Murry Admit Provider: Turner Tolliver Primary Care Provider: Naif Chen Other Providers: Turner Tolliver; Peter Franks; Matt Nova Other Interventions: Discharge Summary Assessment (RN) Last Done: 10/19/24 13:53
== END 2024-10-19 14:42 | disposition home or self-care (01) | DRG 872 ==
LOC: ED 17:33 → 2N 20:59 → SUATTDRO 20:59 → 2N 22:31